=== PATIENT | male | born 1960 | race Caucasian/White ===

== ENCOUNTER 2017-02-10 19:24 | Outpatient (CLI) | payer OTHER ==
[~2017-02-10 19:24] MED LIST: ASPI-983 PO; ASPI-999 PO; ASPI1TAB PO; ATOR40TA70 PO; CLOP75TA28 PO; CLOP75TA69 PO; METO50TA2 PO; NF-ESOM40C PO; OMEG-12 PO; OMEP20CA12 PO; SCR1T PO
== END 2017-02-11 05:35 | disposition home or self-care (01) ==
LOC: SLEEP 19:24
PROVIDERS: ATTEND Family Medicine
DX: G47.33 Obstructive sleep apnea (adult) (pediatric) (principal); G47.61 Periodic limb movement disorder; I10 Essential (primary) hypertension
CPT/HCPCS: 95811

== ENCOUNTER → 2017-11-11 | Outpatient (CLI) | payer OTHER ==
[~2017-11-11] VITALS: Ht 170.2 cm; Wt 83.9 kg
[~2017-11-11] MED LIST changes: +CATHETER FLUSH 10 ML SYR IV PRN; +METO50TA15 PO; -METO50TA2 PO; +REGADENOSON 0.4 MG/5 ML SYR (LEXISCAN) IV ONE
--- NOTE | 2017-11-11 14:55 | STRESS TEST ---
DATE OF SERVICE: 11/11/2017 RESTING AND POST REGADENOSON TECHNETIUM-99M TETROFOSMIN SPECT CT IMAGING. ORDERING PHYSICIAN: Dr. Montoya. PRIMARY PHYSICIAN: Dr. Farah. CLINICAL DIAGNOSIS: Shortness of breath, coronary artery disease, hyperlipidemia, hypertension. Baseline images were carried out after injection of 10.73 mCi technetium-99m tetrofosmin. This was followed by 0.4 mg regadenoson and 30.3 mCi technetium-99m tetrofosmin for stress imaging. The electrocardiogram showed sinus rhythm at baseline. It did not change significantly with the regadenoson infusion. He tolerated the procedure well except for mild shortness of breath which resolved quickly after regadenoson infusion. Review of images at rest and following stress does not indicate any significant perfusion defects consistent with significant myocardial ischemia or infarction. Gated images show normal global left ventricular systolic function with normal regional wall motion. Left ventricular ejection fraction is calculated to be 79%. Left ventricular end diastolic volume is 45 mL. TID is absent (0.95). CONCLUSIONS: 1. No evidence of any significant myocardial ischemia or infarction on this study. 2. Normal regional wall motion. 3. Normal global left ventricular systolic function with a calculated ejection fraction of 79%. Job ID: [id number] DocumentID: [id number] Dictated Date: 11/11/2017 11:33:53 Secured Entrance Monitor Date: 11/11/2017 14:15:56 Dictated By: NICOLE MONTOYA MD, MA, FACP, FACC,
== END ==
LOC: CARD 07:18
PROVIDERS: ATTEND Internal Medicine Cardiovascular Disease
DX: E78.5 Hyperlipidemia, unspecified (principal); I10 Essential (primary) hypertension; I65.29 Occlusion and stenosis of unspecified carotid artery; Z72.0 Tobacco use; R06.02 Shortness of breath; I25.10 Atherosclerotic heart disease of native coronary artery without angina pectoris; I73.9 Peripheral vascular disease, unspecified
CPT/HCPCS: 78452; 93017

== ENCOUNTER 2018-12-30 11:10 | Outpatient (RCR) | payer OTHER ==
[~2018-12-30 11:10] MED LIST changes: -CATHETER FLUSH 10 ML SYR IV PRN; -REGADENOSON 0.4 MG/5 ML SYR (LEXISCAN) IV ONE
== END 2018-12-30 12:00 | disposition home or self-care (01) ==
PROVIDERS: ATTEND Nurse Practitioner Adult Health
DX: G46.4 Cerebellar stroke syndrome (principal)

== ENCOUNTER → 2019-12-26 | Outpatient (CLI) | payer OTHER ==
[~2019-12-26] MED LIST changes: +OMEP20CA18 PO
--- NOTE | 2019-12-26 11:09 | Diagnostic Imaging Report ---
INDICATION: Epigastric pain. EXAMINATION: KUB. FINDINGS: There is a biliary stent in place. There is some pneumobilia present. The lung bases are clear. The bowel gas pattern is normal. There are no pathologic masses or calcifications. There are iliac artery stents bilaterally. There are post surgical changes from a ventral hernia repair in the lower abdomen. IMPRESSION: There is a biliary stent in place. No acute abnormality is seen. Dictated by: Dictated on workstation # [id number]
== END ==
LOC: RAD 10:41
PROVIDERS: ATTEND Surgery
DX: R10.13 Epigastric pain (principal); R10.816 Epigastric abdominal tenderness; Z95.5 Presence of coronary angioplasty implant and graft
CPT/HCPCS: 74018

== ENCOUNTER 2020-01-10 06:09 | Outpatient (RCR) | payer OTHER ==
[~2020-01-10] VITALS: Ht 170 cm; Wt 70.0 kg
[2020-01-10] MEDS ORDERED: ALPR0.254 PO (14:23)
[2020-01-10] MEDS ORDERED: METO100T12 PO (14:23)
[2020-01-10] MEDS ORDERED: ESCI20TA45 PO (14:23)
[2020-01-10] MEDS ORDERED: TRZ50T PO (14:23)
[2020-01-10] MEDS ORDERED: LISI-552 PO (14:23)
[2020-01-10] MEDS ORDERED: OMG1KC PO (14:23)
== END 2020-01-10 15:00 | disposition home or self-care (01) ==
LOC: PREOP 06:09
PROVIDERS: ATTEND Surgery
DX: Z01.818 Encounter for other preprocedural examination (principal); K82.8 Other specified diseases of gallbladder; Z20.828 Contact with and (suspected) exposure to other viral communicable diseases
CPT/HCPCS: 87635

== ENCOUNTER 2020-01-12 07:46 | Day surgery (SDC) | payer OTHER ==
[~2020-01-12] VITALS: Ht 170 cm; Wt 70.0 kg
[2020-01-12] VITALS (9 sets, daily range): BP systolic 113–150; BP diastolic 64–87
[~2020-01-12 07:46] MED LIST changes: +ALPR0.254 PO; +ESCI20TA45 PO; +LISI-552 PO; +METO100T12 PO; +OMG1KC PO; +TRZ50T PO
[2020-01-12] MEDS ORDERED: CLINDAMYCIN 600 MG/50 ML IVPB 50 ML IV ONE (08:00)
[2020-01-12] MEDS ORDERED: CATHETER FLUSH 10 ML SYR IV PRN (08:15)
[2020-01-12] MEDS ORDERED: RT-ALBUTEROL SULF 2.5 MG/3 ML PRE-MIX VIAL INH ONE (08:15)
[2020-01-12] MEDS: LACTATED RINGERS 1,000 ML IV PRN ×3 (08:32→11:40)
[2020-01-12] MEDS ORDERED: IOPAMIDOL 61% 30 ML (ISOVUE 300) VIAL ONE (08:33)
[2020-01-12] MEDS ORDERED: BUP/EPI 0.5% 1:200,000 (SENSORCAINE) 30 ML VIAL ONE (08:33)
[2020-01-12 08:46] LABS: BASOPHILS # (AUTO) 0.1 10^3/uL (0.0-0.1); BASOPHILS % (AUTO) 1 % (0-10); EOSINOPHILS # (AUTO) 0.5 10^3/uL (0.0-0.3); EOSINOPHILS % (AUTO) 6 % (0-10); HEMATOCRIT 49 % (40-54); HEMOGLOBIN 17.2 G/DL (13.3-17.7); LYMPHOCYTES # (AUTO) 2.3 X 10^3 (1.0-4.0); LYMPHOCYTES % (AUTO) 25 % (12-44); MEAN CORPUSCULAR HEMOGLOBIN 33 PG (25-34); MEAN CORPUSCULAR HGB CONC 35 G/DL (32-36); MEAN CORPUSCULAR VOLUME 94 FL (80-99); MEAN PLATELET VOLUME 9.3 FL (7.4-10.4); MONOCYTES # (AUTO) 1.1 X 10^3 (0.0-1.0); MONOCYTES % (AUTO) 12 % (0-12); NEUTROPHILS # (AUTO) 5.4 X 10^3 (1.8-7.8); NEUTROPHILS % (AUTO) 57 % (42-75); PLATELET COUNT 325 10^3/uL (130-400); RED CELL DISTRIBUTION WIDTH 14.3 % (10.0-14.5); WHITE BLOOD COUNT 9.3 10^3/uL (4.3-11.0)
--- NOTE | 2020-01-12 09:12 | Progress Note-Pre Operative ---
Pre-Operative Progress Note H&P Reviewed The H&P was reviewed, patient examined and no changes noted. Time Seen by Provider: 09:01 Date H&P Reviewed: Jan 12, 2020 Time H&P Reviewed: 09:02 Pre-Operative Diagnosis: Gallbladder sludge, CBD stricture TASIA DE LA VEGA DO Jan 12, 2020 09:11
[2020-01-12] MEDS ORDERED: fentaNYL INJECTION 100 MCG/2 ML AMP ONE (09:30)
[2020-01-12] MEDS ORDERED: MIDAZOLAM 2 MG/2 ML (VERSED) VIAL ONE (09:30)
[2020-01-12] MEDS ORDERED: morphine INJ 10 MG/ML 1ML (SYR OR VIAL) ONE (09:48)
[2020-01-12] MEDS ORDERED: proPOfol 200 MG/20 ML (DIPRIVAN) VIAL IV ONE (09:57)
--- NOTE | 2020-01-12 10:21 | Progress Note-Post Operative ---
Post-Operative Progess Note Surgeon (s)/Professor Of Environmental Science (s) Surgeon TASIA DE LA VEGA DO Professor Of Environmental Science: Dom Pre-Operative Diagnosis Gallbladder sludge, CBD stricture Post-Operative Diagnosis same Procedure & Operative Findings Date of Procedure 01/12/20 Procedure Performed/Findings PROCEDURE: Laparoscopic cholecystectomy with intraoperative cholangiogram. COMPLICATIONS: None. PROCEDURE: The patient was taken to the operating suite and was prepped and draped in sterile fashion. A surgical pause was performed. Just superior to the umbilicus, a 12 mm incision was made. Dissection was taken down to the fascia, which was then scored and grasped with a Ester and the abdomen was then entered. A 0 Vicryl suture was placed in a prrpyn-ff-lvrfw fashion and a Barber trocar was placed and secured. Pneumoperitoneum was achieved. A 5mm trochar place in the subxyphoid and 2 in the right upper quadrant. The gallbladder was then grasped and elevated. The cystic duct, and cystic artery were then dissected out. Clip was placed on the distal portion of the cystic duct which was then partially transected. An arrow catheter was inserted into the duct. The cholangiogram was then performed. Could see the CBD stent and contrast started to go around the stent and up into Heptatic ducts and started to make its way into the duodenum. Catheter removed. Clips were placed on proximal portion of the cystic duct and then the duct was then transected. Clips were placed along the proximal and distal portion of the cystic artery which was then transected. Hook cautery was used to dissect the gallbladder from the gallbladder fossa achieving hemostasis. The gallbladder was placed in an Endobag and removed through the 12 mm trocar site. The abdomen was then reinspected. Copious amounts of irrigation were used to irrigate the abdomen and there were no signs of active bleeding. Hemostasis had been achieved. The 12 mm fascial defect was then closed with 0 Vicryl suture that had been placed in a whevjk-qc-tdljl fashion. The abdomen was then desufflated, the trocars were removed. The abdomen was then washed and dried. The skin was then closed using 4-0 Monocryl in a subcuticular fashion. The abdomen was washed and dried and Skin Affix was place over incisions. Patient tolerated the procedure well without any complications and was taken to the recovery room in stable condition. Dr. Fernandes assisted on this case; helping to make incisions, close incisions, identify anatomy and hold anatomy out of the way. A large appendiceal stump was noted and picture taken. No other obvious pathology noted with a quick scan of abdomen. Anesthesia Type GET Estimated Blood Loss Estimated blood loss (mL): scant Specimens/Packing Specimens Removed GB and contents TASIA DE LA VEGA DO Jan 12, 2020 10:21
[2020-01-12] MEDS ORDERED: HYDR-4226 PO (10:22)
--- NOTE | 2020-01-12 10:23 | Discharge Inst-Surgical ---
Discharge Inst-Surgical Depart Medication/Instructions New, Converted or Re-Newed RX: RX Given to Pt/Family Patient Instructions Follow up Appt: Make appointment for 1 week. [phone] Instructions: No lifting greater than 20 pounds. No strenuous activity. May shower in 24 hours, no tub bath or soaking. Use incentive spirometer at home as directed. No Smoking Skin/Wound Care: May remove bandages in am. You need to leave the Dermabond on incision it will fall off on it's own. Symptoms to Report: Appetite Changes, Extremity Discoloration, Numbness/Tingling, Swelling Increased, Bleeding Excessive, Eyesight Changes, Pain Increased, Urine Color Change, Constipation(Persistent), Fever over 101 degree F, Pain/Pressure in chest, Urinating Difficulty, Cough Up/Vomit Blood, Heart Beat Irreg/Pounding, Pain/Pressure in jaw, Cramps in feet or legs, Lightheadedness, Pain/Pressure in shoulder, Diarrhea(Persistent), Memory Changes Suddenly, Questions/Concerns, Weight gain consecutive days, Dizziness/Fainting, Nausea/Vomiting, Shortness of Breath, Weight gain over 2 pounds If questions or concerns contact your physician Or seek help at emergency department. Activity Activity as Tolerated: Yes Activity Instructions: Avoid Stress to Incision Driving Instructions: No Driving/Refer to Diet Discharge Diet: Avoid Fatty Foods, Low Fat/Low Cholesterol Diet for 24 Hours: No [place] Foods Diet After 24 Hours: Clear Liquid if Nauseous If Any Problems/Questions/Issu: Contact Your Physician, Go to Emergency Room Skin/Wound Care Infection Signs and Symptoms: Increased Redness, Foul Odor of Wound, Increased Drainage, Skin Itchy or Has a Rash, Increased Swelling, Temperature Above 101 F Wound Care Comment: heating pad to shoulder or neck tonight for pain Bathing Instructions: Shower Stitches/Mohan/Dermabond Dis: Dermabond Ice Pack: Ice On and Off Site (at incisions as needed for pain) TASIA DE LA VEGA DO Jan 12, 2020 10:23
[2020-01-12] MEDS ORDERED: GLYCOPYRROLATE 0.2 MG/ML (ROBINUL) 2 ML VIAL ONE (10:34)
[2020-01-12] MEDS ORDERED: NEOSTIGMINE 3 MG/3 ML VIAL ONE (10:34)
[2020-01-12] MEDS ORDERED: ONDANSETRON 4 MG/2 ML (SDV) Z0FRAN ONE (10:34)
[2020-01-12] MEDS ORDERED: DEXAMETHASONE 10 MG/ML (DECADRON) 1 ML VIAL ONE (10:34)
[2020-01-12] MEDS ORDERED: SEVOFLURANE (ULTANE) 15 ML INHAL SOLN ONE ×3 (10:36)
[2020-01-12] MEDS ORDERED: ONDANSETRON 4 MG/2 ML (SDV) Z0FRAN IVP PRN (10:45)
[2020-01-12] MEDS ORDERED: morphine INJ 10 MG/ML 1ML (SYR OR VIAL) IVP ONE (10:45)
--- NOTE | 2020-01-12 11:18 | Diagnostic Imaging Report ---
INDICATION: Fluoroscopy for intraoperative cholangiogram. Fluoroscopy was provided in the OR during intraoperative cholangiogram. 21 seconds of fluoroscopic time was utilized. Images demonstrate a common duct stent. There is injection of contrast into the common duct as well as intrahepatic ducts. No definite contrast is seen flowing into the duodenum. IMPRESSION: Fluoroscopy for intraoperative cholangiogram. Dictated by: Dictated on workstation # [id number]
--- NOTE | 2020-01-12 11:55 | Anesthesia-General Post-Op ---
General Patient Condition Mental Status/LOC: Same as Preop Cardiovascular: Satisfactory Nausea/Vomiting: Absent Respiratory: Satisfactory Pain: Controlled Complications: Absent Post Op Complications Complications None Follow Up Care/Instructions Patient Instructions None needed. Anesthesia/Patient Condition Patient Condition Patient is doing well, no complaints, stable vital signs, no apparent adverse anesthesia problems. No complications reported per nursing. SHANNON BABCOCK CRNA Jan 12, 2020 11:55
--- NOTE | 2020-01-12 12:05 | NUR ---
Dr. Raines called at this time, per order ok to give pt. a pain pill. (1) Hydrocodone 5/325 PO x ONCE.
[2020-01-12] MEDS ORDERED: HYDROcodone/APAP 5 MG/325 MG (LORTAB) TAB ONE (12:07)
[2020-01-12] MEDS ORDERED: HYDROcodone/APAP 5 MG/325 MG (LORTAB) TAB PO ONE (12:15)
== END 2020-01-12 13:10 | disposition home or self-care (01) ==
LOC: SDC 07:46
PROVIDERS: ATTEND Surgery
DX: K81.1 Chronic cholecystitis (principal); E78.00 Pure hypercholesterolemia, unspecified; E78.5 Hyperlipidemia, unspecified; I10 Essential (primary) hypertension; F17.210 Nicotine dependence, cigarettes, uncomplicated; F41.9 Anxiety disorder, unspecified; F32.9 Major depressive disorder, single episode, unspecified; J44.9 Chronic obstructive pulmonary disease, unspecified; G47.33 Obstructive sleep apnea (adult) (pediatric); K21.9 Gastro-esophageal reflux disease without esophagitis; Z86.73 Personal history of transient ischemic attack (TIA), and cerebral infarction without residual deficits; Z79.82 Long term (current) use of aspirin; Z79.899 Other long term (current) drug therapy; Z88.0 Allergy status to penicillin
CPT/HCPCS: 36415; 76000; 85025; 87081; 94640

== ENCOUNTER 2020-01-14 17:28 | Observation (INO) | payer OTHER ==
[~2020-01-14] VITALS: Ht 170.1 cm; Wt 71.9 kg
[~2020-01-14 17:28] MED LIST changes: +HYDR-4226 PO
[2020-01-14] MEDS ORDERED: fentaNYL INJECTION 100 MCG/2 ML AMP IVP STA (17:41)
[2020-01-14] MEDS ORDERED: NS IV 1000 ML 1,000 ML IV STA (17:41)
--- NOTE | 2020-01-14 17:44 | ED Abdominal Pain ---
General Chief Complaint: General Problems/Pain Nursing Triage Note: Had gallbladder removed two days ago at [facility] by Dr Eng. States he has not been able to move around much at home due to the pain. Is having generalized abdominal pain, shoulder pain, and headaches. Pain is currently rated at 8/10. Last dose of hydrocodone was two hours ago. Sepsis Screen: No Definite Risk Source of Information: Patient, EMS History of Present Illness Date Seen by Provider: Jan 14, 2020 Time Seen by Provider: 17:31 Initial Comments 59 -year-old male with diffuse abdominal pain radiating to his shoulders. He had laparoscopic cholecystectomy with Dr. De La Vega and was discharged on January 11. He states that he's had pain ever since going home but it was worse today. He has been taking hydrocodone for pain with the last dose 2 hours prior to arrival. He reports that he is passing gas but has had hard stool. He has subjective fever. He reports increased pain with movement Allergies and Home Medications Allergies Coded Allergies: Penicillins (Unverified Allergy, Intermediate, hives, 01/09/20) Home Medications Alprazolam 0.25 Mg Tablet, 0.25 MG PO PRN, (Reported) Escitalopram Oxalate 20 Mg Tablet, 20 MG PO DAILY, (Reported) Hydrocodone/Acetaminophen 1 Each Tablet, 1 TAB PO Q6H Prescribed by: TASIA DE LA VEGA on 01/12/20 1022 Lisinopril 20 Mg Tablet, 10 MG PO DAILY, (Reported) Metoprolol Tartrate 100 Mg Tablet, 50 MG PO BID, (Reported) [place] 3 Polyunsat Fatty Acids 1,000 Mg Cap, 1,000 MG PO BID, (Reported) Omeprazole 20 Mg Capsule.dr, 20 MG PO DAILY, (Reported) Trazodone HCl 50 Mg Tablet, 100 MG PO HS, (Reported) Patient Home Medication List Home Medication List Reviewed: Yes Review of Systems Review of Systems Constitutional: chills, fever (subjective) EENTM: No Symptoms Reported Respiratory: No Symptoms Reported Cardiovascular: No Symptoms Reported Gastrointestinal: See HPI, Abdominal Pain (diffuse abdominal pain radiating to right shoulder), Constipated, Nausea; Denies Vomiting Genitourinary: No Symptoms Reported Musculoskeletal: joint pain (abdominal pain seems to radiate to the right shoulder) Skin: no symptoms reported Psychiatric/Neurological: Headache Past Pmboaln-Ydhvnz-Fzqsiq Hx Past Med/Social Hx: Reviewed Nursing Past Med/Soc Hx Patient Social History Alcohol Use: Occasionally Uses Number of Drinks Today: AA Alcohol Beverage of Choice: Beer Recreational Drug Use: No Smoking Status: Current Everyday Smoker Type Used: Cigarettes 2nd Hand Smoke Exposure: Yes Recent Foreign Travel: No Contact w/Someone Who Travel: No Recent Infectious Disease Expo: No Recent Hopitalizations: Yes (NOVEMBER-2019 ) Physical Abuse: No Sexual Abuse: No Mistreated: No Fear: No Immunizations Up To Date PED Vaccines UTD: No Seasonal Allergies Seasonal Allergies: Yes Past Medical History Surgeries: Yes (HERNIA REPAIR, STENT IN LEGS) Appendectomy, Gallbladder Respiratory: Yes Sleep Apnea, COPD Currently Using CPAP: No (DOESN'T USE CPAP) Cardiac: Yes High Cholesterol, Hypertension Neurological: Yes Stroke Sexually Transmitted Disease: No HIV/AIDS: No Genitourinary: No Gastrointestinal: Yes Gastroesophageal Reflux Musculoskeletal: Yes Chronic Back Pain Endocrine: No HEENT: Yes (READING GLASSES, TOP DENTURE) Loss of Vision: Denies Hearing Impairment: Denies Cancer: No Psychosocial: Yes Anxiety, Depression Integumentary: No Blood Disorders: No Adverse Reaction/Blood Tranf: No (N/A) Physical Exam Vital Signs Vital Signs - First Documented 01/14/20 17:30 Temp 36.8 Pulse 74 Resp 16 B/P (MAP) 102/56 (71) Pulse Ox 93 Capillary Refill : Less Than 3 Seconds Height/Weight/BMI Height: 5'7.00" Weight: 185lbs. 0.0oz. 83.809309kp; 24.22 BMI Method:Stated General Appearance: WD/WN, mild distress HEENT: PERRL/EOMI, pharynx normal Neck: non-tender, full range of motion, supple, normal inspection Respiratory: chest non-tender, lungs clear, normal breath sounds Cardiovascular: normal peripheral pulses, regular rate, rhythm Gastrointestinal: soft, no pulsatile mass, abnormal bowel sounds (hypoactive), guarding; No rebound; tenderness (diffuse tenderness), other (healing incisions from laparoscopic surgery) Extremities: normal range of motion, non-tender, no pedal edema, normal capillary refill Neurologic/Psychiatric: alert, oriented x 3 Skin: warm/dry, ecchymosis (some bruising around his incisions from lapa roscopic surgery) Focused Exam Lactate Level 01/14/20 18:19: Lactic Acid Level 0.95 Lactic Acid Level Laboratory Tests Test 01/14/20 18:19 Lactic Acid Level 0.95 MMOL/L (0.50-2.00) Progress/Results/Core Measures Results/Orders Lab Results Laboratory Tests Test 01/14/20 18:19 01/14/20 18:42 Range/Units White Blood Count 15.1 H 4.3-11.0 10^3/uL Red Blood Count 4.65 4.35-5.85 10^6/uL Hemoglobin 15.5 13.3-17.7 G/DL Hematocrit 45 40-54 % Mean Corpuscular Volume 96 80-99 FL Mean Corpuscular Hemoglobin 33 25-34 PG Mean Corpuscular Hemoglobin Concent 35 32-36 G/DL Red Cell Distribution Width 13.4 10.0-14.5 % Platelet Count 334 130-400 10^3/uL Mean Platelet Volume 9.1 7.4-10.4 FL Neutrophils (%) (Auto) 76 H 42-75 % Lymphocytes (%) (Auto) 12 12-44 % Monocytes (%) (Auto) 11 0-12 % Eosinophils (%) (Auto) 1 0-10 % Basophils (%) (Auto) 0 0-10 % Neutrophils # (Auto) 11.4 H 1.8-7.8 X 10^3 Lymphocytes # (Auto) 1.7 1.0-4.0 X 10^3 Monocytes # (Auto) 1.7 H 0.0-1.0 X 10^3 Eosinophils # (Auto) 0.2 0.0-0.3 10^3/uL Basophils # (Auto) 0.1 0.0-0.1 10^3/uL Neutrophils % (Manual) 71 % Lymphocytes % (Manual) 9 % Monocytes % (Manual) 11 % Eosinophils % (Manual) 0 % Basophils % (Manual) 0 % Band Neutrophils 4 % Atypical Lymphocytes 5 % Blood Morphology Comment NORMAL Sodium Level 132 L 135-145 MMOL/L Potassium Level 4.4 3.6-5.0 MMOL/L Chloride Level 95 L 98-107 MMOL/L Carbon Dioxide Level 24 21-32 MMOL/L Anion Gap 13 5-14 MMOL/L Blood Urea Nitrogen 10 7-18 MG/DL Creatinine 0.93 0.60-1.30 MG/DL Estimat Glomerular Filtration Rate > 60 BUN/Creatinine Ratio 11 Glucose Level 108 H 70-105 MG/DL Lactic Acid Level 0.95 0.50-2.00 MMOL/L Calcium Level 9.2 8.5-10.1 MG/DL Corrected Calcium 9.8 8.5-10.1 MG/DL Total Bilirubin 0.7 0.1-1.0 MG/DL Aspartate Amino Transf (AST/SGOT) 16 5-34 U/L Alanine Aminotransferase (ALT/SGPT) 14 0-55 U/L Alkaline Phosphatase 43 40-136 U/L Total Protein 6.4 6.4-8.2 GM/DL Albumin 3.3 3.2-4.5 GM/DL Lipase 28 8-78 U/L Urine Color YELLOW Urine Clarity CLEAR Urine pH 7.0 5-9 Urine Specific [place] 1.010 L 1.016-1.022 Urine Protein NEGATIVE NEGATIVE Urine Glucose (UA) NEGATIVE NEGATIVE Urine Ketones NEGATIVE NEGATIVE Urine Nitrite NEGATIVE NEGATIVE Urine Bilirubin NEGATIVE NEGATIVE Urine Urobilinogen 0.2 < = 1.0 MG/DL Urine Leukocyte Esterase NEGATIVE NEGATIVE Urine RBC (Auto) NEGATIVE NEGATIVE Urine RBC 0-2 /HPF Urine WBC NONE /HPF Urine Squamous Epithelial Cells 2-5 /HPF Urine Crystals PRESENT H /LPF Urine Bacteria NEGATIVE /HPF Urine Casts NONE /LPF Urine Mucus NEGATIVE /LPF Urine Other SODIUM URATE CRYSTAL /HPF Urine Culture Indicated NO My Orders Orders - ELIZA ADAMS MD Comprehensive Metabolic Panel (01/14/20 17:41) Lipase (01/14/20 17:41) Ua Culture If Indicated (01/14/20 17:41) Ed Iv/Invasive Line Start (01/14/20 17:41) Cbc With Automated Diff (01/14/20 17:41) Ct Abdomen/Pelvis W (01/14/20 17:41) Lactic Acid Analyzer (01/14/20 17:41) Ns Iv 1000 Ml (Sodium Chloride 0.9%) (01/14/20 17:41) Fentanyl Injection (Sublimaze Injection (01/14/20 17:41) Iohexol Injection (Omnipaque 350 Mg/Ml 1 (01/14/20 18:00) Received Contrast (Hold Metformin- Contr (01/14/20 18:00) Sodium Chloride Flush (Catheter Flush Sy (01/14/20 18:00) Ns (Ivpb) (Sodium Chloride 0.9% Ivpb Bag (01/14/20 18:00) Manual Differential (01/14/20 18:19) Medications Given in ED Current Medications Medications Dose Ordered Sig/Boyd Route Start Time Stop Time Status Last Admin Dose Admin Iohexol 100 ml ONCE ONCE IV 01/14/20 18:00 01/14/20 18:01 DC 01/14/20 19:14 100 ML Sodium Chloride 10 ml NEEDED PRN IV 01/14/20 18:00 01/14/20 19:14 10 ML Sodium Chloride 100 ml ONCE ONCE IV 01/14/20 18:00 01/14/20 18:01 DC 01/14/20 19:14 100 ML Vital Signs/I&O 01/14/20 17:30 Temp 36.8 Pulse 74 Resp 16 B/P (MAP) 102/56 (71) Pulse Ox 93 Blood Pressure Mean: 71 Progress Progress Note #1: Progress Note Obtain labs including a lactic acid. Give IV fluids for hydration. A low-dose of fentanyl for pain and plan on CT scan of the abdomen and pelvis with IV contrast if his creatinine is okay. Progress Note #2: Time: 19:01 Progress Note Labs show elevated WBC count with left shift. chemistry without acute significant abnormality. Normal LFTs and Lactic acid. UA does not show acute significant abnormality Awaiting CT scan. Progress Note #3: Time: 19:48 Progress Note Radiologist, Dr. Almaguer, called and stated pt has mild to moderate pneumoperitoneum and constipation. Will check with Dr. De La Vega and have him review the images and see if it is more than he expects or what he would like me to do with the patient. Progress Note #4: Time: 20:06 Progress Note d/w Dr. De La Vega and with pt still having pain and mild to moderate pneumoperitoneum will admit overnight and continue IVF with pain medicine and recheck in am Diagnostic Imaging Diagonstic Imaging: CT Plain Films/CT/US/NM/MRI: abdomen, pelvis Comments NAME: HIRAL JAY MED REC#: [id number] PT STATUS: REG ER : 1960 PHYSICIAN: ELIZA ADAMS MD ADMIT DATE: 01/14/20/ER FS Draft Date of Exam:01/14/20 CT ABDOMEN/PELVIS W PROCEDURE: CT abdomen and pelvis with contrast. TECHNIQUE: Multiple contiguous axial images were obtained through the abdomen and pelvis after administration of intravenous contrast. Auto Exposure Controls were utilized during the CT exam to meet ALARA standards for radiation dose reduction. INDICATION: Generalized abdominal pain. Leukocytosis. COMPARISON: CT dated 11/16/2019 FINDINGS: Included portions of the lung bases show right basilar atelectasis. CT ABDOMEN: Since the previous exam, there has been interval development of mild to moderate pneumoperitoneum in the upper abdomen. Small amount of pneumoperitoneum is also scattered throughout the omentum. Small bowel loops are nondistended. Large amount of air and stool is noted scattered throughout the colon. Normal appendix is identified. Indwelling common bile duct stent is noted. There is pneumobilia. Otherwise, the liver, kidneys, adrenal glands, spleen, and pancreas have a normal CT appearance. There is no loculated fluid collection or free fluid. No abnormal mesenteric or retroperitoneal adenopathy is seen. There is advanced calcified aortic and arterial atherosclerosis. 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 Osseous structures show no acute abnormalities. CT PELVIS: Urinary bladder is unopacified and minimally distended. There is no loculated fluid collection, free fluid or free air within the pelvis. No abnormal lymph nodes are seen. Osseous structures show no acute abnormalities. IMPRESSION: 1. Interval development of mild to moderate pneumoperitoneum. Per history, patient is status post cholecystectomy. No loculated fluid collection is seen to suggest abscess. 2. Indwelling common bile duct stent with pneumobilia. 3. Moderate colonic air and stool. Please correlate for constipation. 4. Other nonemergent findings as described above. Results called to Dr. Eliza Adams by Dr. Almaguer at 1940 on 01/14/2020. Dictated on workstation # [id number] Dict: 01/14/201934 Trans: 01/14/201944 ELLIOTT [id number] Interpreted by: DIOR ALMAGUER MD Electronically signed by: Departure Communication (Admissions) Time/Spoke to Admitting Phy: 20:06 d/w Dr. De La Vega and will observe pt for IVF and pain control and recheck in AM. Impression Primary Impression: Diffuse abdominal pain Additional Impressions: Pneumoperitoneum Pleural effusion, right Disposition: ADMITTED INPATIENT Condition: Stable Admissions Decision to Admit Reason: Admit from ER (General) Decision to Admit/Date: Jan 14, 2020 Time/Decision to Admit Time: 20:06 Departure-Patient Inst. Referrals: NO,LOCAL PHYSICIAN (PCP) Primary Care Physician [facility] (Family) Primary Care Physician ELIZA ADAMS MD Jan 14, 2020 17:44
[2020-01-14] MEDS ORDERED: CATHETER FLUSH 10 ML SYR IV PRN (18:00)
[2020-01-14] MEDS ORDERED: IOHEXOL 350 MG/ML 100 ML (OMNIPAQUE 350) VIAL IV ONE (18:00)
[2020-01-14] MEDS ORDERED: NS 100 ML (IVPB) BAG IV ONE (18:00)
[2020-01-14] MEDS ORDERED: HOLD METFORMIN - RECEIVED CONTRAST 20 ML VIAL IV SCH (18:00)
[2020-01-14 18:28] LABS: BASOPHILS % (AUTO) 0 % (0-10); EOSINOPHILS % (AUTO) 1 % (0-10); HEMATOCRIT 45 % (40-54); HEMOGLOBIN 15.5 G/DL (13.3-17.7); LYMPHOCYTES % (AUTO) 12 % (12-44); MEAN CORPUSCULAR HEMOGLOBIN 33 PG (25-34); MEAN CORPUSCULAR HGB CONC 35 G/DL (32-36); MEAN CORPUSCULAR VOLUME 96 FL (80-99); MEAN PLATELET VOLUME 9.1 FL (7.4-10.4); MONOCYTES % (AUTO) 11 % (0-12); PLATELET COUNT 334 10^3/uL (130-400); RED CELL DISTRIBUTION WIDTH 13.4 % (10.0-14.5); WHITE BLOOD COUNT 15.1 10^3/uL (4.3-11.0)
[2020-01-14 18:29] LABS: BASOPHILS # (AUTO) 0.1 10^3/uL (0.0-0.1); EOSINOPHILS # (AUTO) 0.2 10^3/uL (0.0-0.3); LYMPHOCYTES # (AUTO) 1.7 X 10^3 (1.0-4.0); MONOCYTES # (AUTO) 1.7 X 10^3 (0.0-1.0); NEUTROPHILS # (AUTO) 11.4 X 10^3 (1.8-7.8); NEUTROPHILS % (AUTO) 76 % (42-75)
[2020-01-14 18:41] LABS: ATYPICAL LYMPHOCYTES 5 %; BAND NEUTROPHILS 4 %; BASOPHILS % (MANUAL) 0 %; EOSINOPHILS % (MANUAL) 0 %; LYMPHOCYTES % (MANUAL) 9 %; MONOCYTES % (MANUAL) 11 %; NEUTROPHILS % (MANUAL) 71 %
[2020-01-14 18:42] LABS: RBC MORPH NORMAL
[2020-01-14 18:49] LABS: SODIUM 132 MMOL/L (135-145)
[2020-01-14 18:50] LABS: ALANINE AMINOTRANSFERASE 14 U/L (0-55); ALBUMIN 3.3 GM/DL (3.2-4.5); ALKALINE PHOSPHATASE 43 U/L (40-136); BILIRUBIN,TOTAL 0.7 MG/DL (0.1-1.0); BUN/CREATININE RATIO 11; CALCIUM 9.2 MG/DL (8.5-10.1); CARBON DIOXIDE 24 MMOL/L (21-32); CHLORIDE 95 MMOL/L (98-107); CREATININE SERUM 0.93 MG/DL (0.60-1.30); GFR ESTIMATED > 60; GLUCOSE 108 MG/DL (70-105); POTASSIUM 4.4 MMOL/L (3.6-5.0); TOTAL PROTEIN 6.4 GM/DL (6.4-8.2)
[2020-01-14 18:51] LABS: LIPASE 28 U/L (8-78)
[2020-01-14 18:56] LABS: BILIRUBIN,URINE NEGATIVE (NEGATIVE); CLARITY,URINE CLEAR; COLOR,URINE YELLOW; GLUCOSE, URINE (UA) NEGATIVE (NEGATIVE); KETONES,URINE NEGATIVE (NEGATIVE); NITRITE,URINE NEGATIVE (NEGATIVE); PROTEIN,URINE NEGATIVE (NEGATIVE)
[2020-01-14 18:57] LABS: LEUKOCYTE ESTERASE ,URINE NEGATIVE (NEGATIVE)
[2020-01-14 19:00] LABS: BACTERIA,URINE NEGATIVE /HPF; RBC,URINE 0-2 /HPF; URINE OTHER SODIUM URATE CRYSTAL /HPF
--- NOTE | 2020-01-14 19:46 | Diagnostic Imaging Report ---
PROCEDURE: CT abdomen and pelvis with contrast. TECHNIQUE: Multiple contiguous axial images were obtained through the abdomen and pelvis after administration of intravenous contrast. Auto Exposure Controls were utilized during the CT exam to meet ALARA standards for radiation dose reduction. INDICATION: Generalized abdominal pain. Leukocytosis. COMPARISON: CT dated 11/16/2019 FINDINGS: Included portions of the lung bases show right basilar atelectasis. CT ABDOMEN: Since the previous exam, there has been interval development of mild to moderate pneumoperitoneum in the upper abdomen. Small amount of pneumoperitoneum is also scattered throughout the omentum. Small bowel loops are nondistended. Large amount of air and stool is noted scattered throughout the colon. Normal appendix is identified. Indwelling common bile duct stent is noted. There is pneumobilia. Otherwise, the liver, kidneys, adrenal glands, spleen, and pancreas have a normal CT appearance. There is no loculated fluid collection or free fluid. No abnormal mesenteric or retroperitoneal adenopathy is seen. There is advanced calcified aortic and arterial atherosclerosis. 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 Osseous structures show no acute abnormalities. CT PELVIS: Urinary bladder is unopacified and minimally distended. There is no loculated fluid collection, free fluid or free air within the pelvis. No abnormal lymph nodes are seen. Osseous structures show no acute abnormalities. IMPRESSION: 1. Interval development of mild to moderate pneumoperitoneum. Per history, patient is status post cholecystectomy. No loculated fluid collection is seen to suggest abscess. 2. Indwelling common bile duct stent with pneumobilia. 3. Moderate colonic air and stool. Please correlate for constipation. 4. Other nonemergent findings as described above. Results called to Dr. Shayne Aguirre by Dr. Kuo at 1940 on 01/14/2020. Dictated by: Dictated on workstation # [id number]
--- NOTE | 2020-01-14 22:10 | NUR ---
HIRAL JAY admitted to room 404-1, with an admitting diagnosis of ABD PAIN, on 01/14/20 from [facility], accompanied by EMS STAFF. HIRAL JAY introduced to surroundings, call light, bed controls, phone, TV, temperature control, lights, meal times, smoking policy, visitor policy, side rail policy, bathrooms and showers. Patient Rights given to patient in the handbook. HIRAL JAY verbalizes understanding that [facility] is not responsible for the loss or damage to any personal effects or valuables that are kept in the patients posession during their hospitalization. HIRAL JAY verbalizes understanding of Interdisciplinary Patient Education. Patient and/or family were informed about the Rapid Response Team and its purpose.
[2020-01-14 22:28] VITALS: BP 146/68
[2020-01-14] MEDS ORDERED: ONDANSETRON 4 MG/2 ML (SDV) Z0FRAN ONE (23:00)
[2020-01-14] MEDS ORDERED: LACTATED RINGERS 1,000 ML IV ONE (23:00)
[2020-01-14] MEDS ORDERED: HYDROcodone/APAP 5 MG/325 MG (LORTAB) TAB ONE (23:01)
[2020-01-14] MEDS ORDERED: morphine INJ 4 MG/ML 1 ML (VIAL/SYRINGE) ONE (23:01)
[2020-01-14] MEDS ORDERED: HYDROcodone/APAP 5 MG/325 MG (LORTAB) TAB PO PRN (23:45)
[2020-01-14] MEDS ORDERED: ONDANSETRON 4 MG/2 ML (SDV) Z0FRAN IV PRN (23:45)
[2020-01-14] MEDS ORDERED: morphine INJ 4 MG/ML 1 ML (VIAL/SYRINGE) IV PRN (23:45)
[2020-01-14] MEDS ORDERED: LACTATED RINGERS 1,000 ML IV SCH (23:45)
[2020-01-14] MEDS ORDERED: polyethylene glycoL POWDER 17 GM (MIRALAX) PACK PO SCH (23:58)
[2020-01-15 00:23] VITALS: BP 128/60
[2020-01-15 04:00] VITALS: BP 139/70
[2020-01-15 05:30] LABS: BASOPHILS % (AUTO) 0 % (0-10); EOSINOPHILS # (AUTO) 0.4 10^3/uL (0.0-0.3); EOSINOPHILS % (AUTO) 3 % (0-10); HEMATOCRIT 46 % (40-54); HEMOGLOBIN 15.2 G/DL (13.3-17.7); LYMPHOCYTES # (AUTO) 1.8 X 10^3 (1.0-4.0); LYMPHOCYTES % (AUTO) 16 % (12-44); MEAN CORPUSCULAR HEMOGLOBIN 32 PG (25-34); MEAN CORPUSCULAR HGB CONC 33 G/DL (32-36); MEAN CORPUSCULAR VOLUME 98 FL (80-99); MEAN PLATELET VOLUME 9.2 FL (7.4-10.4); MONOCYTES # (AUTO) 1.6 X 10^3 (0.0-1.0); MONOCYTES % (AUTO) 14 % (0-12); NEUTROPHILS # (AUTO) 7.8 X 10^3 (1.8-7.8); NEUTROPHILS % (AUTO) 67 % (42-75); PLATELET COUNT 303 10^3/uL (130-400); RED CELL DISTRIBUTION WIDTH 13.7 % (10.0-14.5); WHITE BLOOD COUNT 11.5 10^3/uL (4.3-11.0)
[2020-01-15 05:51] LABS: ALANINE AMINOTRANSFERASE 13 U/L (0-55); ALBUMIN 3.3 GM/DL (3.2-4.5); ALKALINE PHOSPHATASE 41 U/L (40-136); BILIRUBIN,TOTAL 0.9 MG/DL (0.1-1.0); BUN/CREATININE RATIO 8; CALCIUM 9.7 MG/DL (8.5-10.1); CARBON DIOXIDE 28 MMOL/L (21-32); CHLORIDE 99 MMOL/L (98-107); GFR ESTIMATED > 60; GLUCOSE 81 MG/DL (70-105); POTASSIUM 4.7 MMOL/L (3.6-5.0); SODIUM 136 MMOL/L (135-145); TOTAL PROTEIN 6.3 GM/DL (6.4-8.2)
[2020-01-15 08:30] VITALS: BP 136/64
[2020-01-15] MEDS ORDERED: CLIN150C17 PO (13:06)
--- NOTE | 2020-01-15 13:08 | NUR ---
SPOKE WITH THE PT- HE WANTED HE TO CALL HIS FIANCE LISSY SINCE SHE TAKES CARE OF HIS MEDS. I CALLED LISSY THEN CALLED THE [facility] TO COMPLETE THE MED REC THE FOLLOWING ARE FILL DATES FROM THE [place]: 12-14-2019 ESCITALOPRAM 20MG #90/90DS 12-14-2019 LISINOPRIL 20MG #45/90DS 12-14-2019 METOPROLOL TART 100MG #90/90DS 12-14-2019 TRAZODONE 50MG #180 12-11-2019 XANAX 0.25MG #56/28DS OMEPRAZOLE 20MG #90/90DS OTC MEDS: FISH OIL
--- NOTE | 2020-01-15 13:14 | History & Physical-Surgical ---
History of Present Illness History of Present Illness Reason for visit/HPI Surgery asked to admit pt secondary to abdominal pain. HPI per ED: Had gallbladder removed two days ago at [facility] by Dr De La Vega. States he has not been able to move around much at home due to the pain. Is having generalized abdominal pain, shoulder pain, and headaches. Pain is currently rated at 8/10. Last dose of hydrocodone was two hours ago. 59 -year-old male with diffuse abdominal pain radiating to his shoulders. He had laparoscopic cholecystectomy with Dr. De La Vega and was discharged on January 11. He states that he's had pain ever since going home but it was worse today. He has been taking hydrocodone for pain with the last dose 2 hours prior to arrival. He reports that he is passing gas but has had hard stool. He has s ubjective fever. He reports increased pain with movement. Pt seen today and stated he feels much better, was able to pass some gas and had a small BM. He is actually asking if he can go home. States pain was 10 out of 10 yesterday. Date of Admission Jan 14, 2020 at 20:32 Time Seen by a Provider: 11:34 I consulted on this patient on 01/15/20 13:07 Attending Physician David De La Vega DO Admitting Physician No,Local Physician Consult Allergies and Home Medications Allergies Coded Allergies: Penicillins (Unverified Allergy, Intermediate, hives, 01/09/20) Home Medications Alprazolam 0.25 Mg Tablet, 0.25 MG PO BID PRN for ANXIETY, (Reported) Clindamycin HCl 150 Mg Capsule, 150 MG PO TID, (Reported) FILLED 01-04-2020 #30/10 DAY SUPPLY Escitalopram Oxalate 20 Mg Tablet, 20 MG PO DAILY, (Reported) Hydrocodone/Acetaminophen 1 Each Tablet, 1 TAB PO Q6H Prescribed by: DAVID DE LA VEGA on 01/12/20 1022 Lisinopril 20 Mg Tablet, 10 MG PO DAILY, (Reported) TAKES OF A 20MG Metoprolol Tartrate 100 Mg Tablet, 50 MG PO BID, (Reported) TAKES OF A 100MG TAB TWICE DAILY [place] 3 Polyunsat Fatty Acids 1,000 Mg Cap, 1,000 MG PO BID, (Reported) Omeprazole 20 Mg Capsule.dr, 20 MG PO DAILY, (Reported) Trazodone HCl 50 Mg Tablet, 50-150 MG PO HS PRN for SLEEP, (Reported) TAKES 1 TO 3 (50MG) TABS Patient Home Medication List Home Medication List Reviewed: Yes Past Slxfemc-Anbcyg-Yjhgau Hx Patient Social History Alcohol Use: Occasionally Uses Number of Drinks Today: AA Recreational Drug Use: No Smoking Status: Current Everyday Smoker Type Used: Cigarettes 2nd Hand Smoke Exposure: Yes Recent Foreign Travel: No Contact w/Someone Who Travel: No Recent Infectious Disease Expo: No Recent Hopitalizations: Yes (NOVEMBER-2019 ) Immunizations Up To Date PED Vaccines UTD: No Seasonal Allergies Seasonal Allergies: Yes Surgeries History of Surgeries: Yes (HERNIA REPAIR, STENT IN LEGS) Surgeries: Appendectomy, Gallbladder Respiratory History of Respiratory Disorde: Yes Respiratory Disorders: Sleep Apnea, COPD Cardiovascular History of Cardiac Disorders: Yes Cardiac Disorders: High Cholesterol, Hypertension Neurological History of Neurological Disord: Yes Neurological Disorders: Stroke Reproductive System Sexually Transmitted Disease: No HIV/AIDS: No Genitourinary History of Genitourinary Disor: No Gastrointestinal History of Gastrointestinal Di: Yes Gastrointestinal Disorders: Gastroesophageal Reflux Musculoskeletal History of Musculoskeletal Dis: Yes Musculoskeletal Disorders: Chronic Back Pain Endocrine History of Endocrine Disorders: No HEENT History of HEENT Disorders: Yes (READING GLASSES, TOP DENTURE) Loss of Vision: Denies Hearing Impairment: Denies Cancer History of Cancer: No Psychosocial History of Psychiatric Problem: Yes Behavioral Health Disorders: Anxiety, Depression Integumentary History of Skin or Integumenta: No Blood Transfusions History of Blood Disorders: No Adverse Reaction to a Blood Tr: No (N/A) Family Medical History Significant Family History: Cancer (Colon CA -gmother), Stroke (father) Review of Systems Constitutional: malaise, weakness EENTM: No blurred vision, No double vision, No mouth pain, No mouth swelling, No epistaxis Respiratory: dyspnea on exertion (secondary to pain with deep breaths); No phlegm, No short of breath Cardiovascular: chest pain; No palpitations Gastrointestinal: abdominal pain; No hematemesis; nausea; No vomiting Genitourinary: No dysuria, No frequency, No hematuria Musculoskeletal: joint pain, muscle stiffness Skin: No change in color, No change in hair/nails Psychiatric/Neurological: Denies Anxiety, Denies Depressed, Denies Seizure, Denies Tremors Physical Exam Vital Signs Vital Signs - First Documented 01/14/20 01/14/20 17:30 21:15 Temp 36.8 Pulse 74 Resp 16 B/P (MAP) 102/56 (71) Pulse Ox 93 O2 Delivery Room Air Capillary Refill : Less Than 3 Seconds Height, Weight, BMI Height: 5'7.00" Weight: 185lbs. 0.0oz. 83.767802fl; 24.84 BMI Method:Stated General Appearance: No Apparent Distress, WD/WN Eyes: Bilateral Eye PERRL, Bilateral Eye EOMI HEENT: Moist Mucous Membranes; No Scleral Icterus (L), No Scleral Icterus (R) Neck: Non Tender, Supple Respiratory: Lungs Clear, Normal Breath Sounds, No Accessory Muscle Use, No Respiratory Distress Cardiovascular: Regular Rate, Rhythm, No Murmur Gastrointestinal: Soft, Distended (slight), Tenderness Rectal: Deferred Back: No CVA Tenderness, No Vertebral Tenderness Extremity: No Calf Tenderness, No Pedal Edema Neurologic/Psychiatric: Alert, Oriented x3, Normal Mood/Affect, net software architect II-XII Norm as Tested Skin: Normal Color, Warm/Dry Lymphatic: No Adenopathy (neck, axilla or groin) Data Review Labs Laboratory Tests 01/14/20 18:19: White Blood Count 15.1H, Red Blood Count 4.65, Hemoglobin 15.5, Hematocrit 45, Mean Corpuscular Volume 96, Mean Corpuscular Hemoglobin 33, Mean Corpuscular Hemoglobin Concent 35, Red Cell Distribution Width 13.4, Platelet Count 334, Mean Platelet Volume 9.1, Neutrophils (%) (Auto) 76H, Lymphocytes (%) (Auto) 12, Monocytes (%) (Auto) 11, Eosinophils (%) (Auto) 1, Basophils (%) (Auto) 0, Neutrophils # (Auto) 11.4H, Lymphocytes # (Auto) 1.7, Monocytes # (Auto) 1.7H, Eosinophils # (Auto) 0.2, Basophils # (Auto) 0.1, Neutrophils % (Manual) 71, Lymphocytes % (Manual) 9, Monocytes % (Manual) 11, Eosinophils % (Manual) 0, Basophils % (Manual) 0, Band Neutrophils 4, Atypical Lymphocytes 5, Blood Morphology Comment NORMAL, Sodium Level 132L, Potassium Level 4.4, Chloride Level 95L, Carbon Dioxide Level 24, Anion Gap 13, Blood Urea Nitrogen 10, Creatinine 0.93, Estimat Glomerular Filtration Rate > 60, BUN/Creatinine Ratio 11, Glucose Level 108H, Lactic Acid Level 0.95, Calcium Level 9.2, Corrected Calcium 9.8, Total Bilirubin 0.7, Aspartate Amino Transf (AST/SGOT) 16, Alanine Aminotransferase (ALT/SGPT) 14, Alkaline Phosphatase 43, Total Protein 6.4, Albumin 3.3, Lipase 28 01/14/20 18:42: Urine Color YELLOW, Urine Clarity CLEAR, Urine pH 7.0, Urine Specific [place] 1.010L, Urine Protein NEGATIVE, Urine Glucose (UA) NEGATIVE, Urine Ketones NEGATIVE, Urine Nitrite NEGATIVE, Urine Bilirubin NEGATIVE, Urine Urobilinogen 0.2, Urine Leukocyte Esterase NEGATIVE, Urine RBC (Auto) NEGATIVE, Urine RBC 0-2, Urine WBC NONE, Urine Squamous Epithelial Cells 2-5, Urine Crystals PRESENTH, Urine Bacteria NEGATIVE, Urine Casts NONE, Urine Mucus NEGATIVE, Urine Other SODIUM URATE CRYSTAL, Urine Culture Indicated NO 01/15/20 05:05: White Blood Count 11.5H, Red Blood Count 4.70, Hemoglobin 15.2, Hematocrit 46, Mean Corpuscular Volume 98, Mean Corpuscular Hemoglobin 32, Mean Corpuscular Hemoglobin Concent 33, Red Cell Distribution Width 13.7, Platelet Count 303, Mean Platelet Volume 9.2, Neutrophils (%) (Auto) 67, Lymphocytes (%) (Auto) 16, Monocytes (%) (Auto) 14H, Eosinophils (%) (Auto) 3, Basophils (%) (Auto) 0, Neutrophils # (Auto) 7.8, Lymphocytes # (Auto) 1.8, Monocytes # (Auto) 1.6H, Eosinophils # (Auto) 0.4H, Basophils # (Auto) 0.0, Sodium Level 136, Potassium Level 4.7, Chloride Level 99, Carbon Dioxide Level 28, Anion Gap 9, Blood Urea Nitrogen 8, Creatinine 1.00, Estimat Glomerular Filtration Rate > 60, BUN/ Creatinine Ratio 8, Glucose Level 81, Calcium Level 9.7, Corrected Calcium 10.3H , Total Bilirubin 0.9, Aspartate Amino Transf (AST/SGOT) 17, Alanine Aminotransferase (ALT/SGPT) 13, Alkaline Phosphatase 41, Total Protein 6.3L, Albumin 3.[address] ABDOMEN/PELVIS W PROCEDURE: CT abdomen and pelvis with contrast. TECHNIQUE: Multiple contiguous axial images were obtained through the abdomen and pelvis after administration of intravenous contrast. Auto Exposure Controls were utilized during the CT exam to meet ALARA standards for radiation dose reduction. INDICATION: Generalized abdominal pain. Leukocytosis. COMPARISON: CT dated 11/16/2019 FINDINGS: Included portions of the lung bases show right basilar atelectasis. CT ABDOMEN: Since the previous exam, there has been interval development of mild to moderate pneumoperitoneum in the upper abdomen. Small amount of pneumoperitoneum is also scattered throughout the omentum. Small bowel loops are nondistended. Large amount of air and stool is noted scattered throughout the colon. Normal appendix is identified. Indwelling common bile duct stent is noted. There is pneumobilia. Otherwise, the liver, kidneys, adrenal glands, spleen, and pancreas have a normal CT appearance. There is no loculated fluid collection or free fluid. No abnormal mesenteric or retroperitoneal adenopathy is seen. There is advanced calcified aortic and arterial atherosclerosis. 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 Osseous structures show no acute abnormalities. CT PELVIS: Urinary bladder is unopacified and minimally distended. There is no loculated fluid collection, free fluid or free air within the pelvis. No abnormal lymph nodes are seen. Osseous structures show no acute abnormalities. IMPRESSION: 1. Interval development of mild to moderate pneumoperitoneum. Per history, patient is status post cholecystectomy. No loculated fluid collection is seen to suggest abscess. 2. Indwelling common bile duct stent with pneumobilia. 3. Moderate colonic air and stool. Please correlate for constipation. 4. Other nonemergent findings as described above. Results called to Dr. Shayne Aguirre by Dr. Almaguer at 1940 on 01/14/2020. Dictated on workstation # [id number] Dict: 01/14/201934 Trans: 01/14/201944 [facility] [id number] Interpreted by: DIOR ALMAGUER MD Assessment/Plan Assessment/Plan Admission Diagonsis Pneumoperitoneum Abdominal pain Constipation Admission Status: Observation Assessment/Plan Pneumoperitoneum Abdominal pain Constipation Pt had elevated WBC but that is improved and his pain is better after flatus and BM. I think the pneumoperitoneum was just due to recent surgery. Pt told to take some Mg Citrate at home and f/u in office. Will D/C pt home. Clinical Quality Measures DVT/VTE Risk/Contraindication: Risk Factor Score Per Nursin RFS Level Per Nursing on Admit: 3=High DAVID DE LA VEGA DO Jan 15, 2020 13:14
--- NOTE | 2020-01-15 13:18 | NUR ---
RD ASSESSMENT PMHx: COPD; hypercholesterolemia; HTN; stroke; GERD PT INTERACTION: Pt was awake and pleasant during nutrition assessment. Pt states current appetite is "not that great" and has been since his surgery 01/11. Note no meals have been recorded, per chart review. Pt states "trying to follow a healthy diet with my " at home and has no issues with chewing/swallowing food. Pt states no recent issues with nausea, vomiting or diarrhea. Pt states some recent issues with constipation, and that his last BM was "maybe Wednesday (01/11)." Note pt currently on bowel regimen of miralax HS, per chart review. Pt states unsure of recent wt changes. Note unable to determine recent wt hx, per chart review. ABNORMAL NUTRITION-RELATED LAB VALUES LOW: Pro 6.3 HIGH: Est. kcal needs: 2635-0613 kcal | 25-30 kcal/kg Est. Pro needs: 58-72 g Pro | 0.8-1.0 g Pro/kg PES STATEMENT: Inadequate oral intake (NI-2.1) related to loss of appetite | constipation as evidenced by pt interview INTERVENTION: Continue with current diet order of Clear Liquid diet. Pt may benefit from nutrition supplementation if PO intake declines. Encouraged pt to eat when able. Will continue to follow and reassess as pt needs, intake, and status change. MONITOR/EVALUATE: PO Intake; Plan of Care; Hydration Status; Weight Status; Lab Values Azeem River, MS, RD, LD
--- NOTE | 2020-01-15 13:54 | Discharge Inst-Surgical ---
Discharge Inst-Surgical Depart Medication/Instructions New, Converted or Re-Newed RX: Other (Use home meds) Patient Instructions Follow up Appt: Make appointment for this week. [phone] Instructions: No lifting greater than 20 pounds. No strenuous activity. May shower in 24 hours, no tub bath or soaking. Use incentive spirometer at home as directed. No Smoking Symptoms to Report: Appetite Changes, Extremity Discoloration, Numbness/Tingling, Swelling Increased, Bleeding Excessive, Eyesight Changes, Pain Increased, Urine Color Change, Constipation(Persistent), Fever over 101 degree F, Pain/Pressure in chest, Urinating Difficulty, Cough Up/Vomit Blood, Heart Beat Irreg/Pounding, Pain/Pressure in jaw, Cramps in feet or legs, Lightheadedness, Pain/Pressure in shoulder, Diarrhea(Persistent), Memory Changes Suddenly, Questions/Concerns, Weight gain consecutive days, Dizziness/Fainting, Nausea/Vomiting, Shortness of Breath, Weight gain over 2 pounds If questions or concerns contact your physician Or seek help at emergency department. Activity Activity as Tolerated: Yes Activity Instructions: Avoid Stress to Incision Driving Instructions: No Driving/Refer to Diet Discharge Diet: Avoid Fatty Foods, Low Fat/Low Cholesterol Diet for 24 Hours: No [place] [employer] Diet After 24 Hours: Clear Liquid if Nauseous Comment: Use Mg Citrate for BM's If Any Problems/Questions/Issu: Contact Your Physician, Go to Emergency Room Skin/Wound Care Infection Signs and Symptoms: Increased Redness, Foul Odor of Wound, Increased Drainage, Skin Itchy or Has a Rash, Increased Swelling, Temperature Above 101 F Stitches/[place]/Dermabond Dis: TASIA Mac DO Jan 15, 2020 13:54
== END 2020-01-15 13:52 | disposition home or self-care (01) ==
LOC: EDUNIT# 17:28 → ER FS 17:29 → UNDOADMOB 20:32 → 4TH 20:32 → UNDODISOB 01-15 14:40
PROVIDERS: ADMIT Surgery; ATTEND Surgery
DX: J90 Pleural effusion, not elsewhere classified (principal); E78.00 Pure hypercholesterolemia, unspecified; I10 Essential (primary) hypertension; K21.9 Gastro-esophageal reflux disease without esophagitis; G89.29 Other chronic pain; G47.30 Sleep apnea, unspecified; M54.9 Dorsalgia, unspecified; F32.9 Major depressive disorder, single episode, unspecified; F41.9 Anxiety disorder, unspecified; K59.00 Constipation, unspecified; J44.9 Chronic obstructive pulmonary disease, unspecified; F17.210 Nicotine dependence, cigarettes, uncomplicated; Z90.49 Acquired absence of other specified parts of digestive tract; Z88.0 Allergy status to penicillin; Z86.73 Personal history of transient ischemic attack (TIA), and cerebral infarction without residual deficits; Z79.891 Long term (current) use of opiate analgesic; Z79.899 Other long term (current) drug therapy; Z90.89 Acquired absence of other organs; Z80.0 Family history of malignant neoplasm of digestive organs
CPT/HCPCS: 36415; 74177; 80053 ×2; 81000; 83605; 83690; 85007; 85025; 85027; 96361; 96374; 99283; G0378

== ENCOUNTER 2020-02-08 05:39 | Outpatient (RCR) | payer OTHER ==
[~2020-02-08] VITALS: Ht 170.2 cm; Wt 75.9 kg
[~2020-02-08 05:39] MED LIST changes: +CLIN150C17 PO
== END 2020-02-08 10:41 | disposition home or self-care (01) ==
LOC: PREOP 05:39
PROVIDERS: ATTEND Surgery
DX: Z01.818 Encounter for other preprocedural examination (principal)

== ENCOUNTER 2020-02-11 16:49 | Emergency (ER) | payer OTHER ==
[~2020-02-11] VITALS: Ht 170 cm; Wt 75.9 kg
--- OUTSIDE RECORDS SUMMARY | 2020-02-11 17:36 | XMS REPORT | Continuity of Care Document ---
Author Organization Unknown Address Unknown Phone Unavailable Allergies Active Description Code Type Severity Reaction Onset Reported/Identified Relationship to Patient Clinical Status Yes PENICILLIN G POTASSIUM UNKNOWN UNKNOWN Yes Penicillins [id number] Drug Aller gy Moderate hives 01/09/2020 Medications Medication Packaging Start Date St op Date Route Dosage Sig FAMOTIDINE VIAL INJ 20 MG/2CC (PEPCID VIAL ) MG 11/13/2019 11/13/2019 ONCE&1318 PANTOPRAZOLE VIAL INJ 40 MG (PROTONIX IV) MG 11/13/2019 11/13/2019 ONCE&1318 GI COCKTAIL SINGLE DOSE LIQ (GRASSHOPPER) ML 11/13/2019 11/13/2019 ONCE&1318 THIAMINE VIAL 2CC INJ 100 MG /CC (VIT B1 2CC VIAL) MG 11/13/2019 11/13/2019 ONCE&1404 NORMAL SALINE 1000CC IV BAG INJ 0.9 % (NS 1000CC IV BAG) ml 11/13/2019 11/13/2019 ONCE&1551 NICOTINE PATCH PAT 21 MG (NICODERM) MG 11/13/2019 11/13/2019 ONCE&1553 FENTANYL INJ 100 MCG/2CC VIAL MCG 11/13/2019 11/13/2019 ONCE&1614 Problems Date Dx Coded Attending Type Code Diagnosis Diagnosed By 07/01/1040 TASIA DE LA VEGA DO Ot Z01.8 18 ENCOUNTER FOR OTHER PREPROCEDURAL EXAMIN 07/01/1199 VAHE GRANT Ot G46.4 CEREBELLAR STROKE SYNDROME 11/14/2013 GERMÁN GODWIN, OPAL Jackson Ot 305.00 ALCOHOL ABUSE-UNSPEC 11/14/2013 OPAL DUNLAP MD Ot 440.20 ATHEROSCLEROSIS [place] ARTERIES EXTREMIT 11/14/2013 GERMÁN GODWIN, OPAL Jackson Ot 535.50 UNSP GASTRITIS GASTRODUODENITIS W/O ME 11/14/2013 OPAL DUNLAP MD Ot 789.09 ABDOMINAL PAIN, OTHER SPECIFIED SITE 08/20/2015 FENG GODWIN FACC, ALI FACP CCDS Ot E78.4 08/20/2015 FENG GODWIN FACC, ALI FACP CCDS Ot I10 08/20/2015 FENG GODWIN FACC, ALI FACP CCDS Ot I70.212 08/20/2015 FENG GODWIN FACC, ALI FACP CCDS Ot R06.02 08/20/2015 FENG GODWIN FACC, ALI FACP CCDS Ot R07.89 08/20/2015 FENG GODWIN FACC, ALI FACP CCDS Ot Z72.0 09/04/2015 FENG GODWIN FACC, ALI FACP CCDS Ot E78.5 HYPERLIPIDEMIA, UNSPECIFIED 09/04/2015 FENG GODWIN FACC, ALI FACP CCDS Ot F17.200 NICOTINE DEPENDENCE, UNSPECIFIED, UNCOMP 09/04/2015 FENG GODWIN FACC, ALI FACP CCDS Ot I25.10 ATHSCL HEART DISEASE OF [place] CORONARY 09/04/2015 FENG GODWIN FACC, ALI FACP CCDS Ot I25.82 CHRONIC TOTAL OCCLUSION OF CORONARY UMM 09/04/2015 FENG GODWIN FACC, ALI FACP CCDS Ot I70.213 ATHSCL [place]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 INTRMT 09/04/2015 FENG GODWIN FACC, ALI FACP CCDS Ot R06.00 DYSPNEA, UNSPECIFIED 09/04/2015 FENG GODWIN FACC, ALI FACP CCDS Ot R07.89 OTHER CHEST PAIN 09/04/2015 FENG GODWIN FACC, ALI FACP CCDS Ot Z79.8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 09/10/2015 FENG GODWIN FACC, NICOLE FACP CCDS Ot E78.5 HYPERLIPIDEMIA, UNSPECIFIED 09/10/2015 FENG GODWIN FACC, ALI FACP CCDS Ot F17.200 NICOTINE DEPENDENCE, UNSPECIFIED, UNCOMP 09/10/2015 FENG GODWIN FACC, ALI FACP CCDS Ot I70.213 ATHSCL [place]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 INTRMT 09/10/2015 FENG GODWIN FACC, ALI FACP CCDS Ot R06.00 DYSPNEA, UNSPECIFIED 09/10/2015 FENG GODWIN FACC, ALI FACP CCDS Ot Z79.8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 09/25/2015 FENG GODWIN FACC, ALI FACP CCDS Ot E78.4 09/25/2015 FENG GODWIN FACC, ALI FACP CCDS Ot I10 09/25/2015 FENG GODWIN FACC, ALI FACP CCDS Ot I70.212 09/25/2015 FENG STEWART, ALI FACP CCDS Ot R06.02 09/25/2015 FENG GODWIN FAC, ALI FACP CCDS Ot R07.89 09/25/2015 FENG GODWIN FACC, ALI FACP CCDS Ot Z72.0 09/25/2015 FENG GODWIN FAC, ALI FACP CCDS Ot E78.4 09/25/2015 FENG GODWIN FAC, ALI FACP CCDS Ot I10 09/25/2015 FENG GODWIN FAC, ALI FACP CCDS Ot I70.212 09/25/2015 FENG GODWIN [facility], ALI FACP CCDS Ot R06.02 09/25/2015 FENG GODWIN [facility], ALI FACP CCDS Ot R07.89 09/25/2015 FENG GODWIN [facility], ALI FACP CCDS Ot Z72.0 02/09/2017 FENG STEWART, ALI FACP CCDS Ot E78.4 OTHER HYPERLIPIDEMIA 02/09/2017 FENG GODWIN [facility], ALI FACP CCDS Ot I10 ESSENTIAL (PRIMARY) HYPERTENSION 02/09/2017 FENG GODWIN [facility], ALI FACP CCDS Ot 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 02/09/2017 FENG STEWART, ALI FACP CCDS Ot R06.02 SHORTNESS OF BREATH 02/09/2017 FENG STEWART, ALI FACP CCDS Ot R07.89 OTHER CHEST PAIN 02/09/2017 FENG STEWART, ALI FACP CCDS Ot Z72.0 TOBACCO USE 02/09/2017 FENG STEWART, ALI FACP CCDS Ot E78.4 OTHER HYPERLIPIDEMIA 02/09/2017 FENG STEWART, ALI FACP CCDS Ot I10 ESSENTIAL (PRIMARY) HYPERTENSION 02/09/2017 FENG STEWART, ALI FACP CCDS Ot 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 02/09/2017 FENG STEWARTC, ALI FACP CCDS Ot R06.02 SHORTNESS OF BREATH 02/09/2017 FENG STEWARTC, ALI FACP CCDS Ot R07.89 OTHER CHEST PAIN 02/09/2017 FENG STEWARTC, ALI FACP CCDS Ot Z72.0 TOBACCO USE 02/10/2017 FENG GODWIN FACC, ALI FACP CCDS Ot E78.4 OTHER HYPERLIPIDEMIA 02/10/2017 FENG GODWIN FACC, ALI FACP CCDS Ot I10 ESSENTIAL (PRIMARY) HYPERTENSION 02/10/2017 FENG GODWIN FACC, ALI FACP CCDS Ot 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 02/10/2017 FENG GODWIN FACC, ALI FACP CCDS Ot R06.02 SHORTNESS OF BREATH 02/10/2017 FENG GODWIN FACC, ALI FACP CCDS Ot R07.89 OTHER CHEST PAIN 02/10/2017 FENG GODWIN FACC, ALI FACP CCDS Ot Z72.0 TOBACCO USE 02/10/2017 FENG GODWIN FACC, ALI FACP CCDS Ot E78.4 OTHER HYPERLIPIDEMIA 02/10/2017 FENG GODWIN FACC, ALI FACP CCDS Ot I10 ESSENTIAL (PRIMARY) HYPERTENSION 02/10/2017 FENG GODWIN FACShobha, ALI FACP CCDS Ot 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 02/10/2017 FENG GODWIN FACC, ALI FACP CCDS Ot R06.02 SHORTNESS OF BREATH 02/10/2017 FENG GODWIN FACC, ALI FACP CCDS Ot R07.89 OTHER CHEST PAIN 02/10/2017 FENG GODWIN FACC, ALI FACP CCDS Ot Z72.0 TOBACCO USE 02/11/2017 BRISEIDA BRODERICK MD Ot G47.3 3 OBSTRUCTIVE SLEEP APNEA (ADULT) (PEDIATR 02/11/2017 BRISEIDA BRODERICK MD Ot G47.6 1 PERIODIC LIMB MOVEMENT DISORDER 02/11/2017 BRISEIDA BRODERICK MD Ot I10 ESSENTIAL (PRIMARY) HYPERTENSION 10/27/2017 W 728.85 SPA SM OF MUSCLE 10/27/2017 W M62.838 OT HER MUSCLE SPASM 11/02/2017 Briseida Broderick W 173.32 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 11/02/2017 Briseida Broderick W C44.329 SQUAMOUS CELL CARCINOMA OF SKIN OF OTHER PARTS OF FACE 11/02/2017 W 173.32 SQU AMOUS CELL CARCINOMA OF SKIN OF OTHER AND UNSPECIFIED PARTS OF FACE 11/02/2017 W 272.4 OTHE R AND UNSPECIFIED HYPERLIPIDEMIA 11/02/2017 W C44.329 SQ UAMOUS CELL CARCINOMA OF SKIN OF OTHER PARTS OF FACE 11/02/2017 W E78.5 HYPE RLIPIDEMIA, UNSPECIFIED 11/02/2017 Silvia BroderickDenzel W 173.32 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 11/02/2017 Gagan Briseida W C44.329 SQUAMOUS CELL CARCINOMA OF SKIN OF OTHER PARTS OF FACE 11/10/2017 FENG GODWIN FACC, ALI FACP CCDS Ot E78.4 OTHER HYPERLIPIDEMIA 11/10/2017 FENG GODWIN FACC, ALI FACP CCDS Ot I10 ESSENTIAL (PRIMARY) HYPERTENSION 11/10/2017 FENG GODWIN FACC, ALI FACP CCDS Ot I70.212 ATHSCL [place]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 [facility] 11/10/2017 FENG GODWIN FACC, ALI FACP CCDS Ot R06.02 SHORTNESS OF BREATH 11/10/2017 FENG STEWARTC, ALI FACP CCDS Ot R07.89 OTHER CHEST PAIN 11/10/2017 FENG STEWARTC, ALI FACP CCDS Ot Z72.0 TOBACCO USE 11/10/2017 FENG GODWIN FACC, ALI FACP CCDS Ot E78.4 OTHER HYPERLIPIDEMIA 11/10/2017 FENG GODWIN FACC, ALI FACP CCDS Ot I10 ESSENTIAL (PRIMARY) HYPERTENSION 11/10/2017 FENG GODWIN FACC, ALI FACP CCDS Ot 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 11/10/2017 FENG STEWARTC, ALI FACP CCDS Ot R06.02 SHORTNESS OF BREATH 11/10/2017 FENG STEWARTC, ALI FACP CCDS Ot R07.89 OTHER CHEST PAIN 11/10/2017 FENG STEWARTC, ALI FACP CCDS Ot Z72.0 TOBACCO USE 11/10/2017 FENG STEWARTC, ALI FACP CCDS Ot E78.4 OTHER HYPERLIPIDEMIA 11/10/2017 FENG GODWIN FACC, ALI FACP CCDS Ot I10 ESSENTIAL (PRIMARY) HYPERTENSION 11/10/2017 FENG GODWIN FACC, ALI FACP CCDS Ot 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 11/10/2017 FENG GODWIN FACC, ALI FACP CCDS Ot R06.02 SHORTNESS OF BREATH 11/10/2017 FENG GODWIN FACC, ALI FACP CCDS Ot R07.89 OTHER CHEST PAIN 11/10/2017 FENG GODWIN FACC, ALI FACP CCDS Ot Z72.0 TOBACCO USE 11/10/2017 FENG GODWIN FACC, ALI FACP CCDS Ot E78.4 OTHER HYPERLIPIDEMIA 11/10/2017 FENG GODWIN FACC, ALI FACP CCDS Ot I10 ESSENTIAL (PRIMARY) HYPERTENSION 11/10/2017 FENG GODWIN FACC, ALI FACP CCDS Ot 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 11/10/2017 FENG GODWIN FACC, ALI FACP CCDS Ot R06.02 SHORTNESS OF BREATH 11/10/2017 FENG GODWIN FACC, ALI FACP CCDS Ot R07.89 OTHER CHEST PAIN 11/10/2017 FENG GODWIN FACC, ALI FACP CCDS Ot Z72.0 TOBACCO USE 11/10/2017 FENG GODWIN FACC, ALI FACP CCDS Ot E78.4 OTHER HYPERLIPIDEMIA 11/10/2017 FENG GODWIN FACC, ALI FACP CCDS Ot I10 ESSENTIAL (PRIMARY) HYPERTENSION 11/10/2017 FENG GODWIN FACC, ALI FACP CCDS Ot 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 11/10/2017 FENG STEWARTC, ALI FACP CCDS Ot R06.02 SHORTNESS OF BREATH 11/10/2017 FENG STEWARTC, ALI FACP CCDS Ot R07.89 OTHER CHEST PAIN 11/10/2017 FENG STEWARTC, ALI FACP CCDS Ot Z72.0 TOBACCO USE 11/10/2017 FENG STEWARTC, ALI FACP CCDS Ot E78.4 OTHER HYPERLIPIDEMIA 11/10/2017 FENG GODWIN FACC, ALI FACP CCDS Ot I10 ESSENTIAL (PRIMARY) HYPERTENSION 11/10/2017 FENG GODWIN FACC, ALI FACP CCDS Ot 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 11/10/2017 FENG GODWIN FACC, ALI FACP CCDS Ot R06.02 SHORTNESS OF BREATH 11/10/2017 FENG GODWIN FACC, ALI FACP CCDS Ot R07.89 OTHER CHEST PAIN 11/10/2017 FENG GODWIN FACC, ALI FACP CCDS Ot Z72.0 TOBACCO USE 11/11/2017 FENG GODWIN FACC, ALI FACP CCDS Ot E78.4 OTHER HYPERLIPIDEMIA 11/11/2017 FENG GODWIN FACC, ALI FACP CCDS Ot I10 ESSENTIAL (PRIMARY) HYPERTENSION 11/11/2017 FENG GODWIN FACC, ALI FACP CCDS Ot 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 11/11/2017 FENG GODWIN FACC, ALI FACP CCDS Ot R06.02 SHORTNESS OF BREATH 11/11/2017 FENG GODWIN FACC, ALI FACP CCDS Ot R07.89 OTHER CHEST PAIN 11/11/2017 FENG GODWIN FACC, ALI FACP CCDS Ot Z72.0 TOBACCO USE 11/11/2017 FENG GODWIN FACC, ALI FACP CCDS Ot E78.4 OTHER HYPERLIPIDEMIA 11/11/2017 FENG GODWIN FACC, ALI FACP CCDS Ot I10 ESSENTIAL (PRIMARY) HYPERTENSION 11/11/2017 FENG GODWIN FACC, ALI FACP CCDS Ot 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 11/11/2017 FENG GODWIN FACC, ALI FACP CCDS Ot R06.02 SHORTNESS OF BREATH 11/11/2017 FENG STEWARTC, ALI FACP CCDS Ot R07.89 OTHER CHEST PAIN 11/11/2017 FENG STEWARTC, ALI FACP CCDS Ot Z72.0 TOBACCO USE 11/11/2017 FENG STEWARTC, ALI FACP CCDS Ot E78.4 OTHER HYPERLIPIDEMIA 11/11/2017 FENG GODWIN FACC, ALI FACP CCDS Ot I10 ESSENTIAL (PRIMARY) HYPERTENSION 11/11/2017 FENG GODWIN FACC, ALI FACP CCDS Ot 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 11/11/2017 FENG GODWIN FACC, ALI FACP CCDS Ot R06.02 SHORTNESS OF BREATH 11/11/2017 FENG GODWIN FACC, ALI FACP CCDS Ot R07.89 OTHER CHEST PAIN 11/11/2017 FENG GODWIN FACC, ALI FACP CCDS Ot Z72.0 TOBACCO USE 11/11/2017 FENG GODWIN FACC, ALI FACP CCDS Ot E78.4 OTHER HYPERLIPIDEMIA 11/11/2017 FENG GODWIN FACC, ALI FACP CCDS Ot I10 ESSENTIAL (PRIMARY) HYPERTENSION 11/11/2017 FENG GODWIN FACC, ALI FACP CCDS Ot 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 11/11/2017 FENG GODWIN FACC, ALI FACP CCDS Ot R06.02 SHORTNESS OF BREATH 11/11/2017 FENG GODWIN FACC, ALI FACP CCDS Ot R07.89 OTHER CHEST PAIN 11/11/2017 FENG GODWIN FACC, ALI FACP CCDS Ot Z72.0 TOBACCO USE 11/12/2017 FENG GODWIN FACC, ALI FACP CCDS Ot E78.5 HYPERLIPIDEMIA, UNSPECIFIED 11/12/2017 FENG GODWIN FACC, ALI FACP CCDS Ot I10 ESSENTIAL (PRIMARY) HYPERTENSION 11/12/2017 FENG GDOWIN FACC, ALI FACP CCDS Ot I25.10 ATHSCL HEART DISEASE OF [place] CORONARY 11/12/2017 FENG GODWIN FACC, ALI FACP CCDS Ot I65.29 OCCLUSION AND STENOSIS OF UNSPECIFIED CA 11/12/2017 FENG GODWIN FACC, ALI FACP CCDS Ot I73.9 PERIPHERAL VASCULAR DISEASE, UNSPECIFIED 11/12/2017 FENG GODWIN FACC, ALI FACP CCDS Ot R06.02 SHORTNESS OF BREATH 11/12/2017 FENG STEWARTC, ALI FACP CCDS Ot Z72.0 TOBACCO USE 11/17/2017 FENG STEWARTC, ALI FACP CCDS Ot E78.5 HYPERLIPIDEMIA, UNSPECIFIED 11/17/2017 FENG GODWIN FACC, ALI FACP CCDS Ot I10 ESSENTIAL (PRIMARY) HYPERTENSION 11/17/2017 FENG GODWIN FACC, ALI FACP CCDS Ot I25.10 ATHSCL HEART DISEASE OF [place] CORONARY 11/17/2017 FENG GODWIN FACC, ALI FACP CCDS Ot I65.29 OCCLUSION AND STENOSIS OF UNSPECIFIED CA 11/17/2017 FENG GODWIN FACC, ALI FACP CCDS Ot I73.9 PERIPHERAL VASCULAR DISEASE, UNSPECIFIED 11/17/2017 FENG GODWIN FACC, ALI FACP CCDS Ot R06.02 SHORTNESS OF BREATH 11/17/2017 FENG GODWIN FACC, ALI FACP CCDS Ot Z72.0 TOBACCO USE 11/18/2017 W V58.32 ENC OUNTER FOR REMOVAL OF SUTURES 11/18/2017 W Z48.02 ENC OUNTER FOR REMOVAL OF SUTURES 11/22/2017 FENG GODWIN FACC, ALI FACP CCDS Ot E78.4 OTHER HYPERLIPIDEMIA 11/22/2017 FENG STEWARTC, ALI FACP CCDS Ot I10 ESSENTIAL (PRIMARY) HYPERTENSION 11/22/2017 FENG STEWARTC, ALI FACP CCDS Ot 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 11/22/2017 FENG STEWARTC, ALI FACP CCDS Ot R06.02 SHORTNESS OF BREATH 11/22/2017 FENG STEWARTC, ALI FACP CCDS Ot R07.89 OTHER CHEST PAIN 11/22/2017 FENG GODWIN FACC, ALI FACP CCDS Ot Z72.0 TOBACCO USE 11/22/2017 FNEG GODWIN FACC, ALI FACP CCDS Ot E78.4 OTHER HYPERLIPIDEMIA 11/22/2017 FENG GODWIN FACC, ALI FACP CCDS Ot I10 ESSENTIAL (PRIMARY) HYPERTENSION 11/22/2017 FENG GODWIN FACC, ALI FACP CCDS Ot 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 11/22/2017 FENG GODWIN FACC, ALI FACP CCDS Ot R06.02 SHORTNESS OF BREATH 11/22/2017 FENG GODWIN FACC, ALI FACP CCDS Ot R07.89 OTHER CHEST PAIN 11/22/2017 FENG GODWIN FACC, ALI FACP CCDS Ot Z72.0 TOBACCO USE 11/22/2017 FENG GODWIN FACC, ALI FACP CCDS Ot E78.5 HYPERLIPIDEMIA, UNSPECIFIED 11/22/2017 FENG GODWIN FACC, ALI FACP CCDS Ot I10 ESSENTIAL (PRIMARY) HYPERTENSION 11/22/2017 FENG GODWIN FACC, ALI FACP CCDS Ot I25.10 ATHSCL HEART DISEASE OF [place] CORONARY 11/22/2017 FENG GODWIN FACC, ALI FACP CCDS Ot I65.29 OCCLUSION AND STENOSIS OF UNSPECIFIED CA 11/22/2017 FENG GODWIN FACC, ALI FACP CCDS Ot I73.9 PERIPHERAL VASCULAR DISEASE, UNSPECIFIED 11/22/2017 FENG GODWIN FACC, ALI FACP CCDS Ot R06.02 SHORTNESS OF BREATH 11/22/2017 FENG MD FACC, ALI FACP CCDS Ot Z72.0 TOBACCO USE 11/24/2017 FENG GODWIN FACC, ALI FACP CCDS Ot E78.5 HYPERLIPIDEMIA, UNSPECIFIED 11/24/2017 FENG GODWIN FACC, ALI FACP CCDS Ot I10 ESSENTIAL (PRIMARY) HYPERTENSION 11/24/2017 FENG GODWIN FACC, ALI FACP CCDS Ot I25.10 ATHSCL HEART DISEASE OF [place] CORONARY 11/24/2017 FENG GODWIN FACC, ALI FACP CCDS Ot I73.9 PERIPHERAL VASCULAR DISEASE, UNSPECIFIED 11/24/2017 FENG GODWIN FACC, ALI FACP CCDS Ot R06.02 SHORTNESS OF BREATH 11/24/2017 FENG GODWIN FACC, ALI FACP CCDS Ot Z72.0 TOBACCO USE 12/09/2017 FENG GODWIN [facility], ALI FACP CCDS Ot E78.5 HYPERLIPIDEMIA, UNSPECIFIED 12/09/2017 FENG GODWIN FACC, ALI FACP CCDS Ot I10 ESSENTIAL (PRIMARY) HYPERTENSION 12/09/2017 FENG GODWIN [facility], ALI FACP CCDS Ot I25.10 ATHSCL HEART DISEASE OF [place] CORONARY 12/09/2017 FENG GODWIN [facility], ALI FACP CCDS Ot I65.29 OCCLUSION AND STENOSIS OF UNSPECIFIED CA 12/09/2017 FENG GODWIN [facility], ALI FACP CCDS Ot I73.9 PERIPHERAL VASCULAR DISEASE, UNSPECIFIED 12/09/2017 FENG GODWIN [facility], ALI FACP CCDS Ot R06.02 SHORTNESS OF BREATH 12/09/2017 FENG GODWIN [facility], ALI FACP CCDS Ot Z72.0 TOBACCO USE 12/14/2017 FENG GODWIN [facility], ALI FACP CCDS Ot E78.5 HYPERLIPIDEMIA, UNSPECIFIED 12/14/2017 FENG GODWIN [facility], ALI FACP CCDS Ot I10 ESSENTIAL (PRIMARY) HYPERTENSION 12/14/2017 FENG GODWIN [facility], ALI FACP CCDS Ot I25.10 ATHSCL HEART DISEASE OF [place] CORONARY 12/14/2017 FENG GODWIN [facility], ALI FACP CCDS Ot I73.9 PERIPHERAL VASCULAR DISEASE, UNSPECIFIED 12/14/2017 FENG GODWIN FACC, ALI FACP CCDS Ot R06.02 SHORTNESS OF BREATH 12/14/2017 FENG GODWIN [facility], ALI FACP CCDS Ot Z72.0 TOBACCO USE 02/17/2018 W 112.0 CAND IDIASIS OF MOUTH 02/17/2018 W 401.9 UNSP ECIFIED ESSENTIAL HYPERTENSION 02/17/2018 W 430 SUBARA CHNOID HEMORRHAGE 02/17/2018 W 431 INTRAC EREBRAL HEMORRHAGE 02/17/2018 W B37.0 CAND IDAL STOMATITIS 02/17/2018 W I10 ESSENT IAL (PRIMARY) HYPERTENSION 02/17/2018 W I60.9 NONT RAUMATIC SUBARACHNOID HEMORRHAGE, UNSPECIFIED 02/17/2018 W I61.9 NONT RAUMATIC INTRACEREBRAL HEMORRHAGE, UNSPECIFIED 03/15/2018 W 309.0 ADJU STMENT DISORDER WITH DEPRESSED MOOD 03/15/2018 W 431 INTRAC EREBRAL HEMORRHAGE 03/15/2018 W F43.21 ADJ USTMENT DISORDER WITH DEPRESSED MOOD 03/15/2018 W I61.9 NONT RAUMATIC INTRACEREBRAL HEMORRHAGE, UNSPECIFIED 04/07/2018 W 272.4 OTHE R AND UNSPECIFIED HYPERLIPIDEMIA 04/07/2018 W 401.9 UNSP ECIFIED ESSENTIAL HYPERTENSION 04/07/2018 W 691.8 OTHE R ATOPIC DERMATITIS AND RELATED CONDITIONS 04/07/2018 W E78.5 HYPE RLIPIDEMIA, UNSPECIFIED 04/07/2018 W I10 ESSENT IAL (PRIMARY) HYPERTENSION 04/07/2018 W L20.9 ATOP IC DERMATITIS, UNSPECIFIED 10/24/2018 FENG GODWIN FACC, ALI FACP CCDS Ot E78.4 OTHER HYPERLIPIDEMIA 10/24/2018 FENG GODWIN FACC, ALI FACP CCDS Ot I10 ESSENTIAL (PRIMARY) HYPERTENSION 10/24/2018 FENG GODWIN FACC, ALI FACP CCDS Ot 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 10/24/2018 FENG GODWIN FACC, ALI FACP CCDS Ot R06.02 SHORTNESS OF BREATH 10/24/2018 FENG GODWIN FACC, ALI FACP CCDS Ot R07.89 OTHER CHEST PAIN 10/24/2018 FENG GODWIN FACC, ALI FACP CCDS Ot Z72.0 TOBACCO USE 10/24/2018 FENG GODWIN FACC, ALI FACP CCDS Ot E78.4 OTHER HYPERLIPIDEMIA 10/24/2018 FENG GODWIN FACC, ALI FACP CCDS Ot I10 ESSENTIAL (PRIMARY) HYPERTENSION 10/24/2018 FENG GODWIN FACC, ALI FACP CCDS Ot 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 10/24/2018 FENG MD FACC, ALI FACP CCDS Ot R06.02 SHORTNESS OF BREATH 10/24/2018 FENG MD FACC, ALI FACP CCDS Ot R07.89 OTHER CHEST PAIN 10/24/2018 FENG MD FAC, ALI FACP CCDS Ot Z72.0 TOBACCO USE 10/24/2018 FENG MD FACC, ALI FACP CCDS Ot E78.5 HYPERLIPIDEMIA, UNSPECIFIED 10/24/2018 FENG MD FACC, ALI FACP CCDS Ot I10 ESSENTIAL (PRIMARY) HYPERTENSION 10/24/2018 FENG [facility], ALI FACP CCDS Ot I25.10 ATHSCL HEART DISEASE OF [place] CORONARY 10/24/2018 FENG GODWIN [facility], ALI FACP CCDS Ot I65.29 OCCLUSION AND STENOSIS OF UNSPECIFIED CA 10/24/2018 FENG GODWIN [facility], ALI FACP CCDS Ot I73.9 PERIPHERAL VASCULAR DISEASE, UNSPECIFIED 10/24/2018 FENG MD [facility], ALI FACP CCDS Ot R06.02 SHORTNESS OF BREATH 10/24/2018 FENG GODWIN [facility], ALI FACP CCDS Ot Z72.0 TOBACCO USE 10/24/2018 FENG GODWIN [facility], ALI FACP CCDS Ot E78.5 HYPERLIPIDEMIA, UNSPECIFIED 10/24/2018 FENG MD [facility], ALI FACP CCDS Ot I10 ESSENTIAL (PRIMARY) HYPERTENSION 10/24/2018 FENG GODWIN [facility], ALI FACP CCDS Ot I25.10 ATHSCL HEART DISEASE OF [place] CORONARY 10/24/2018 FENG GODWIN [facility], ALI FACP CCDS Ot I73.9 PERIPHERAL VASCULAR DISEASE, UNSPECIFIED 10/24/2018 FENG GODWIN [facility], ALI FACP CCDS Ot R06.02 SHORTNESS OF BREATH 10/24/2018 FENG GODWIN [facility], ALI FACP CCDS Ot Z72.0 TOBACCO USE 10/31/2018 VAHE GRANT FREIGHT WEIGHER Ot G46.4 CEREBELLAR STROKE SYNDROME 12/30/2018 VAHE GRANT Ot G46.4 CEREBELLAR STROKE SYNDROME 11/13/2019 Benedict Espinoza W 303.90 OTHER AND UNSPECIFIED ALCOHOL DEPENDENCE, UNSPECIFIED DRINKING BEHAVIOR 11/13/2019 Benedict Espinoza 571.1 ACUTE ALCOHOLIC HEPATITIS 11/13/2019 Benedict Espinoza B37.0 CANDIDAL STOMATITIS 11/13/2019 Benedict Espinoza C44.329 SQUAMOUS CELL CARCINOMA OF SKIN OF OTHER PARTS OF FACE 11/13/2019 Benedict Espinoza E78.5 HYPERLIPIDEMIA, UNSPECIFIED 11/13/2019 Benedict Espinoza F10.20 ALCOHOL DEPENDENCE, UNCOMPLICATED 11/13/2019 Benedict Espinoza F43.21 ADJUSTMENT DISORDER WITH DEPRESSED MOOD 11/13/2019 Benedict Espinoza I10 ESSENTIAL (PRIMARY) HYPERTENSION 11/13/2019 Benedict Espinoza I60.9 NONTRAUMATIC SUBARACHNOID HEMORRHAGE, UNSPECIFIED 11/13/2019 Benedict Espinoza I61.9 NONTRAUMATIC INTRACEREBRAL HEMORRHAGE, UNSPECIFIED 11/13/2019 Benedict Espinoza K70.10 ALCOHOLIC HEPATITIS WITHOUT ASCITES 11/13/2019 Benedict Espinoza L20.9 ATOPIC DERMATITIS, UNSPECIFIED 11/13/2019 Benedict Espinoza M62.838 OTHER MUSCLE SPASM 11/13/2019 Benedict Espinoza Z48.02 ENCOUNTER FOR REMOVAL OF SUTURES 12/28/2019 [place] DO, TASIA B Ot R10.1 3 EPIGASTRIC PAIN 12/28/2019 [place] DO, TASIA B Ot R10.8 16 EPIGASTRIC ABDOMINAL TENDERNESS 12/28/2019 [place], TASIA B Ot Z95.5 PRESENCE OF CORONARY ANGIOPLASTY IMPLANT 01/02/2020 [place] DO, TASIA B Ot R10.1 3 EPIGASTRIC PAIN 01/02/2020 [place] DO, TASIA B Ot R10.8 16 EPIGASTRIC ABDOMINAL TENDERNESS 01/02/2020 [place] DO, TASIA B Ot Z95.5 PRESENCE OF CORONARY ANGIOPLASTY IMPLANT 01/12/2020 FENG GODWIN FACC, ALI FACP CCDS Ot E78.4 OTHER HYPERLIPIDEMIA 01/12/2020 FENG GODWIN FACC, ALI FACP CCDS Ot I10 ESSENTIAL (PRIMARY) HYPERTENSION 01/12/2020 FENG GODWIN FACC, ALI FACP CCDS Ot 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 01/12/2020 FENG GODWIN FACC, ALI FACP CCDS Ot R06.02 SHORTNESS OF BREATH 01/12/2020 FENG GODWIN FACC, ALI FACP CCDS Ot R07.89 OTHER CHEST PAIN 01/12/2020 [facility], ALI FACP CCDS Ot Z72.0 TOBACCO USE 01/12/2020 FENG MD FAC, ALI FACP CCDS Ot E78.4 OTHER HYPERLIPIDEMIA 01/12/2020 FENG MD FACC, ALI FACP CCDS Ot I10 ESSENTIAL (PRIMARY) HYPERTENSION 01/12/2020 [facility] [place] FACC, ALI FACP CCDS Ot 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 01/12/2020 FENG MD FACC, ALI FACP CCDS Ot R06.02 SHORTNESS OF BREATH 01/12/2020 FENG FAC, ALI FACP CCDS Ot R07.89 OTHER CHEST PAIN 01/12/2020 [facility], ALI FACP CCDS Ot Z72.0 TOBACCO USE 01/12/2020 [facility], ALI FACP CCDS Ot E78.5 HYPERLIPIDEMIA, UNSPECIFIED 01/12/2020 [facility] F[facility] CCDS Ot I10 ESSENTIAL (PRIMARY) HYPERTENSION 01/12/2020 [facility], ALI FACP CCDS Ot I25.10 ATHSCL HEART DISEASE OF [place] CORONARY 01/12/2020 [facility], ALI FACP CCDS Ot I65.29 OCCLUSION AND STENOSIS OF UNSPECIFIED CA 01/12/2020 [facility], ALI FACP CCDS Ot I73.9 PERIPHERAL VASCULAR DISEASE, UNSPECIFIED 01/12/2020 [facility], ALI FACP CCDS Ot R06.02 SHORTNESS OF BREATH 01/12/2020 [facility], ALI FACP CCDS Ot Z72.0 TOBACCO USE 01/12/2020 [facility], ALI FACP CCDS Ot E78.5 HYPERLIPIDEMIA, UNSPECIFIED 01/12/2020 [facility], ALI FACP CCDS Ot I10 ESSENTIAL (PRIMARY) HYPERTENSION 01/12/2020 [facility], ALI FACP CCDS Ot I25.10 ATHSCL HEART DISEASE OF [place] CORONARY 01/12/2020 [facility], ALI FACP CCDS Ot I73.9 PERIPHERAL VASCULAR DISEASE, UNSPECIFIED 01/12/2020 [facility], ALI FACP CCDS Ot R06.02 SHORTNESS OF BREATH 01/12/2020 [facility]ENG MD FACC, ALI FACP CCDS Ot Z72.0 TOBACCO USE 01/12/2020 CEFERINO CASTELAN, TASIA B Ot R10.1 3 EPIGASTRIC PAIN 01/12/2020 CEFERINO CASTELAN, TASIA B Ot R10.8 16 EPIGASTRIC ABDOMINAL TENDERNESS 01/12/2020 CEFERINO CASTELAN, TASIA B Ot Z95.5 PRESENCE OF CORONARY ANGIOPLASTY IMPLANT 01/15/2020 CEFERINO CASTELAN, TASIA B Ot E78.0 0 PURE HYPERCHOLESTEROLEMIA, UNSPECIFIED 01/15/2020 CEFERINO CASTELAN, TASIA B Ot F17.2 10 NICOTINE DEPENDENCE, CIGARETTES, UNCOMPL 01/15/2020 CEFERINO CATSELAN, TASIA B Ot F32.9 MAJOR DEPRESSIVE DISORDER, SINGLE EPISOD 01/15/2020 CEFERINO CASTELAN, TASIA B Ot F41.9 ANXIETY DISORDER, UNSPECIFIED 01/15/2020 CEFERINO CASTELAN, TASIA B Ot G47.3 0 SLEEP APNEA, UNSPECIFIED 01/15/2020 CEFERINO CASTELAN, TASIA B Ot G89.2 9 OTHER CHRONIC PAIN 01/15/2020 CEFERINO CASTELAN, TASIA B Ot I10 ESSENTIAL (PRIMARY) HYPERTENSION 01/15/2020 CEFERINO CASTELAN, TASIA B Ot J44.9 CHRONIC OBSTRUCTIVE PULMONARY DISEASE, U 01/15/2020 CEFERINO CASTELAN, TASIA B Ot J90 PLEURAL EFFUSION, NOT ELSEWHERE CLASSIFI 01/15/2020 CEFERINO CASTELAN, TASIA B Ot K21.9 GASTRO-ESOPHAGEAL REFLUX DISEASE WITHOUT 01/15/2020 CEFERINO CASTELAN, TASIA B Ot K59.0 0 CONSTIPATION, UNSPECIFIED 01/15/2020 CEFERINO CASTELAN, TASIA B Ot M54.9 DORSALGIA, UNSPECIFIED 01/15/2020 CEFERINO CASTELAN, TASIA B Ot Z79.8 91 DETENTION (CURRENT) USE OF OPIATE ANALGE 01/15/2020 CEFERINO CASTELAN, TASIA B Ot Z79.8 99 OTHER DETENTION (CURRENT) DRUG THERAPY 01/15/2020 CEFERINO CASTELAN, TASIA B Ot Z80.0 FAMILY HISTORY OF MALIGNANT NEOPLASM OF 01/15/2020 CEFERINO CASTELAN, TASIA B Ot 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 3 PRSNL HX OF TIA (TIA), AND CEREB INFRC W 01/15/2020 CEFERINO CASTELAN, TASIA B Ot Z88.0 ALLERGY STATUS TO PENICILLIN 01/15/2020 CEFERINO CASTELAN, TASIA B Ot Z90.4 9 ACQUIRED ABSENCE OF OTHER SPECIFIED PART 01/15/2020 CEFERINO CASTELAN, TASIA B Ot Z90.8 9 ACQUIRED ABSENCE OF OTHER ORGANS 01/15/2020 CEFERINO CASTELAN, TASIA B Ot E78.0 0 PURE HYPERCHOLESTEROLEMIA, UNSPECIFIED 01/15/2020 CEFERINO CASTELAN, TASIA B Ot F17.2 10 NICOTINE DEPENDENCE, CIGARETTES, UNCOMPL 01/15/2020 CEFERINO CASTELAN, TASIA B Ot F32.9 MAJOR DEPRESSIVE DISORDER, SINGLE EPISOD 01/15/2020 CEFERINO CASTELAN, TASIA B Ot F41.9 ANXIETY DISORDER, UNSPECIFIED 01/15/2020 CEFERINO CASTELAN, TASIA B Ot G47.3 0 SLEEP APNEA, UNSPECIFIED 01/15/2020 CEFERINO CASTELAN, TASIA B Ot G89.2 9 OTHER CHRONIC PAIN 01/15/2020 CEFERINO CASTELAN, TASIA B Ot I10 ESSENTIAL (PRIMARY) HYPERTENSION 01/15/2020 CEFERINO CASTELAN, TASIA B Ot J44.9 CHRONIC OBSTRUCTIVE PULMONARY DISEASE, U 01/15/2020 CFEERINO CASTELAN, TASIA B Ot J90 PLEURAL EFFUSION, NOT ELSEWHERE CLASSIFI 01/15/2020 CEFERINO CASTELAN, TASIA B Ot K21.9 GASTRO-ESOPHAGEAL REFLUX DISEASE WITHOUT 01/15/2020 CEFERINO CASTELAN, TASIA B Ot K59.0 0 CONSTIPATION, UNSPECIFIED 01/15/2020 CEFERINO CASTELAN, TASIA B Ot M54.9 DORSALGIA, UNSPECIFIED 01/15/2020 CEFERINO CASTELAN, TASIA B Ot Z79.8 91 DETENTION (CURRENT) USE OF OPIATE ANALGE 01/15/2020 CEFERINO CASTELAN, TASIA B Ot Z79.8 99 OTHER DETENTION (CURRENT) DRUG THERAPY 01/15/2020 CEFERINO CASTELAN, TASIA B Ot Z80.0 FAMILY HISTORY OF MALIGNANT NEOPLASM OF 01/15/2020 CEFERINO CASTELAN, TASIA B Ot Z86.7 3 PRSNL HX OF TIA (TIA), AND CEREB INFRC W 01/15/2020 CEFERINO CASTELAN, TASIA B Ot Z88.0 ALLERGY STATUS TO PENICILLIN 01/15/2020 CEFERINO CASTELAN, TASIA B Ot Z90.4 9 ACQUIRED ABSENCE OF OTHER SPECIFIED PART 01/15/2020 CEFERINO CASTELAN, TASIA B Ot Z90.8 9 ACQUIRED ABSENCE OF OTHER ORGANS 01/16/2020 CEFERINO CASTELAN, TASIA B Ot E78.0 0 PURE HYPERCHOLESTEROLEMIA, UNSPECIFIED 01/16/2020 CEFERINO DO, TASIA B Ot E78.5 HYPERLIPIDEMIA, UNSPECIFIED 01/16/2020 [place] DO, TASIA B Ot F17.2 10 NICOTINE DEPENDENCE, CIGARETTES, UNCOMPL 01/16/2020 [place] DO, TASIA B Ot F32.9 MAJOR DEPRESSIVE DISORDER, SINGLE EPISOD 01/16/2020 [place] DO, TASIA B Ot F41.9 ANXIETY DISORDER, UNSPECIFIED 01/16/2020 CEFERINO DO, TASIA B Ot G47.3 3 OBSTRUCTIVE SLEEP APNEA (ADULT) (PEDIATR 01/16/2020 DELDENOTN DO, TASIA B Ot I10 ESSENTIAL (PRIMARY) HYPERTENSION 01/16/2020 CEFERINO DO, TASIA B Ot J44.9 CHRONIC OBSTRUCTIVE PULMONARY DISEASE, U 01/16/2020 CEFERINO DO, TASIA B Ot K21.9 GASTRO-ESOPHAGEAL REFLUX DISEASE WITHOUT 01/16/2020 CEFERINO DO, TASIA B Ot K81.1 CHRONIC CHOLECYSTITIS 01/16/2020 CEFERINO DO, TASIA B Ot Z79.8 2 DETENTION (CURRENT) USE OF ASPIRIN 01/16/2020 CEFERINO DO, TASIA B Ot Z79.8 99 OTHER DETENTION (CURRENT) DRUG THERAPY 01/16/2020 CEFERINO DO, TASIA B Ot Z86.7 3 PRSNL HX OF TIA (TIA), AND CEREB INFRC W 01/16/2020 CEFERINO CASTELAN, TASIA B Ot Z88.0 ALLERGY STATUS TO PENICILLIN 01/16/2020 CEFERINO DO, TASIA B Ot E78.0 0 PURE HYPERCHOLESTEROLEMIA, UNSPECIFIED 01/16/2020 CEFERINO DO, TASIA B Ot E78.5 HYPERLIPIDEMIA, UNSPECIFIED 01/16/2020 CEFERINO DO, TASIA B Ot F17.2 10 NICOTINE DEPENDENCE, CIGARETTES, UNCOMPL 01/16/2020 CEFERINO DO, TASIA B Ot F32.9 MAJOR DEPRESSIVE DISORDER, SINGLE EPISOD 01/16/2020 [place] DO, TASIA B Ot F41.9 ANXIETY DISORDER, UNSPECIFIED 01/16/2020 CEFERINO DO, TASIA B Ot G47.3 3 OBSTRUCTIVE SLEEP APNEA (ADULT) (PEDIATR 01/16/2020 [place] DO, TASIA B Ot I10 ESSENTIAL (PRIMARY) HYPERTENSION 01/16/2020 [place] DO, TASIA B Ot J44.9 CHRONIC OBSTRUCTIVE PULMONARY DISEASE, U 01/16/2020 DEL[place] DO, TASIA B Ot K21.9 GASTRO-ESOPHAGEAL REFLUX DISEASE WITHOUT 01/16/2020 CEFERINO CASTELAN, TASIA B Ot K81.1 CHRONIC CHOLECYSTITIS 01/16/2020 CEFERINO CASTELAN, TASIA B Ot Z79.8 2 DETENTION (CURRENT) USE OF ASPIRIN 01/16/2020 CEFERINO CASTELAN, TASIA B Ot Z79.8 99 OTHER DETENTION (CURRENT) DRUG THERAPY 01/16/2020 CEFERINO CASTELAN, TASIA B Ot Z86.7 3 PRSNL HX OF TIA (TIA), AND CEREB INFRC W 01/16/2020 CEFERINO CASTELAN, TASIA B Ot Z88.0 ALLERGY STATUS TO PENICILLIN 01/22/2020 CEFERINO CASTELAN, TASIA B Ot E78.0 0 PURE HYPERCHOLESTEROLEMIA, UNSPECIFIED 01/22/2020 CEFERINO CASTELAN, TASIA B Ot F17.2 10 NICOTINE DEPENDENCE, CIGARETTES, UNCOMPL 01/22/2020 CEFERINO CASTELAN, TASIA B Ot F32.9 MAJOR DEPRESSIVE DISORDER, SINGLE EPISOD 01/22/2020 CEFERINO CASTELAN, TASIA B Ot F41.9 ANXIETY DISORDER, UNSPECIFIED 01/22/2020 CEFERINO CASTELAN, TASIA B Ot G47.3 0 SLEEP APNEA, UNSPECIFIED 01/22/2020 CEFERINO CASTELAN, TASIA B Ot G89.2 9 OTHER CHRONIC PAIN 01/22/2020 CEFERINO CASETLAN, TASIA B Ot I10 ESSENTIAL (PRIMARY) HYPERTENSION 01/22/2020 CEFERINO CASTELAN, TASIA B Ot J44.9 CHRONIC OBSTRUCTIVE PULMONARY DISEASE, U 01/22/2020 [place] CASTELAN, TASIA B Ot J90 PLEURAL EFFUSION, NOT ELSEWHERE CLASSIFI 01/22/2020 [place] CASTELAN TASIA B Ot K21.9 GASTRO-ESOPHAGEAL REFLUX DISEASE WITHOUT 01/22/2020 CEFERINO CASTELAN, TASIA B Ot K59.0 0 CONSTIPATION, UNSPECIFIED 01/22/2020 CEFERINO CASTELAN, TASIA B Ot M54.9 DORSALGIA, UNSPECIFIED 01/22/2020 CEFERINO CASTELAN, TASIA B Ot Z79.8 91 DETENTION (CURRENT) USE OF OPIATE ANALGE 01/22/2020 CEFERINO CASTELAN, TASIA B Ot Z79.8 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 01/22/2020 CEFERINO CASTELAN, TASIA B Ot Z80.0 FAMILY HISTORY OF MALIGNANT NEOPLASM OF 01/22/2020 [place] CASTELAN TASIA B Ot Z86.7 3 PRSNL HX OF TIA (TIA), AND CEREB INFRC W 01/22/2020 CEFERINO DO, TASIA B Ot Z88.0 ALLERGY STATUS TO PENICILLIN 01/22/2020 CEFERINO DO, TASIA B Ot Z90.4 9 ACQUIRED ABSENCE OF OTHER SPECIFIED PART 01/22/2020 [place] DO, TASIA B Ot Z90.8 9 ACQUIRED ABSENCE OF OTHER ORGANS 01/22/2020 [place] CASTELAN, TASIA B Ot E78.0 0 PURE HYPERCHOLESTEROLEMIA, UNSPECIFIED 01/22/2020 CEFERINO DO, TASIA B Ot F17.2 10 NICOTINE DEPENDENCE, CIGARETTES, UNCOMPL 01/22/2020 CEFERINO DO, TASIA B Ot F32.9 MAJOR DEPRESSIVE DISORDER, SINGLE EPISOD 01/22/2020 [place] CASTELAN, TASIA B Ot F41.9 ANXIETY DISORDER, UNSPECIFIED 01/22/2020 CEFERINO CASTELAN, TASIA B Ot G47.3 0 SLEEP APNEA, UNSPECIFIED 01/22/2020 CEFERINO CASTELAN, TASIA B Ot G89.2 9 OTHER CHRONIC PAIN 01/22/2020 [place] CASTELAN, TASIA B Ot I10 ESSENTIAL (PRIMARY) HYPERTENSION 01/22/2020 CEFERINO CASTELAN, TASIA B Ot J44.9 CHRONIC OBSTRUCTIVE PULMONARY DISEASE, U 01/22/2020 [place] CASTELAN, TASIA B Ot J90 PLEURAL EFFUSION, NOT ELSEWHERE CLASSIFI 01/22/2020 CEFERINO CASTELAN, TASIA B Ot K21.9 GASTRO-ESOPHAGEAL REFLUX DISEASE WITHOUT 01/22/2020 CEFERINO CASTELAN, TASIA B Ot K59.0 0 CONSTIPATION, UNSPECIFIED 01/22/2020 CEFERINO CASTELAN, TASIA B Ot M54.9 DORSALGIA, UNSPECIFIED 01/22/2020 CEFERINO CASTELAN, TASIA B Ot 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 Results Test Result Range HH - 01/13/17 11:07 Hct 49.3 % 42.0-52.0 Hgb 16.7 g/dL 14.0-17.0 Reticulocyte Count - 01/13/17 11:07 Reticulocyte Count 1.6 % 0.6-2.6 Surgical Pathology - 11/02/17 14:35 Surg Path Sent to [facility] - 11/13/19 13:18 Mg++ 1.7 mg/dL 1.6-2.6 Urinalysis - 11/13/19 13:18 Icotest Positive Negative Urine Casts Few [place] Granular Urine Volume Urine Volume Sufficient (10mL) Urine-Appearance Clear Clear Urine-Bacteria Negative Urine-Bilirubin 3+ Negative Urine-Blood Negative Negative Urine-Color [place] Colorless-[place] ow Urine-Epithelial Cells 0-5/HPF Urine-Glucose Trace Negative Urine-Ketones 1+ Negative Urine-Leukocytes Negative Negative Urine-Mucus 1+ Urine-Nitrite Negative Negative Urine-Other Urine Saved if Culture Need ed (48hrs from time of collection) Urine-pH 5.5 5-8.5 Urine-Protein 2+ Negative Urine-RBC Negative Urine-Specific [place] 1.020 1.000-1 .030 Urine-WBC Negative Urobilinogen 1.0 E.U./dL 0.2-1.0 Coronavirus SARS-CoV-2 SO 2019 - 0 07:50 Coronavirus Ab [Units/volume] in Serum Negative Negative Methicillin resistant Staphylococcus aur eus (MRSA) screening culture - 01/12/20 08:25 Methicillin resistant Staphylococcus aureus (MRSA) scr eening culture NG NRG Complete blood count (CBC) with automate d white blood cell (WBC) differential - 01/12/20 08:30 Blood leukocytes automated count (number/volume) 9.3 10*3/uL 4.3-11.0 Blood erythrocytes automated count (number/volume) 5.24 10*6/uL 4.35-5.85 Venous blood hemoglobin measurement (mass/volume) 17.2 g/dL 13.3-17.7 Blood hematocrit (volume fraction) 49 % 40-54 Automated erythrocyte mean corpuscular volume 94 [ foz_us] 80-99 Automated erythrocyte mean corpuscular h emoglobin (mass per erythrocyte) 33 pg 25-34 Automated erythrocyte mean corpuscular h emoglobin concentration measurement (mass/volume) 35 g/dL 32-36 Automated erythrocyte distribution width ratio 14. 3 % 10.0- 14.5 Automated blood platelet count (count/volume) 325 10*3/uL 130-400 Automated blood platelet mean volume measurement 9.3 [foz_us] 7.4-10.4 Automated blood neutrophils/100 leukocytes 57 % 42-75 Automated blood lymphocytes/100 leukocytes 25 % 12-44 Blood monocytes/100 leukocytes 12 % 0-12 Automated blood eosinophils/100 leukocytes 6 % 0-10 Automated blood basophils/100 leukocytes 1 % 0-10 Blood neutrophils automated count (number/volume) 5.4 10*3 1.8-7.8 Blood lymphocytes automated count (number/volume) 2.3 10*3 1.0-4.0 Blood monocytes automated count (number/volume) 1. 1 10*3 0.0-1.0 Automated eosinophil count 0.5 10*3/uL 0 .0-0.3 Automated blood basophil count (count/volume) 0.1 10*3/uL 0.0-0.1 Complete blood count (CBC) with automate d white blood cell (WBC) differential - 01/14/20 18:19 Blood leukocytes automated count (number/volume) 15.1 10*3/uL 4.3-11.0 Blood erythrocytes automated count (number/volume) 4.65 10*6/uL 4.35-5.85 Venous blood hemoglobin measurement (mass/volume) 15.5 g/dL 13.3-17.7 Blood hematocrit (volume fraction) 45 % 40-54 Automated erythrocyte mean corpuscular volume 96 [ foz_us] 80-99 Automated erythrocyte mean corpuscular h emoglobin (mass per erythrocyte) 33 pg 25-34 Automated erythrocyte mean corpuscular h emoglobin concentration measurement (mass/volume) 35 g/dL 32-36 Automated erythrocyte distribution width ratio 13. 4 % 10.0- 14.5 Automated blood platelet count (count/volume) 334 10*3/uL 130-400 Automated blood platelet mean volume measurement 9.1 [foz_us] 7.4-10.4 Automated blood neutrophils/100 leukocytes 76 % 42-75 Automated blood lymphocytes/100 leukocytes 12 % 12-44 Blood monocytes/100 leukocytes 11 % 0-12 Automated blood eosinophils/100 leukocytes 1 % 0-10 Automated blood basophils/100 leukocytes 0 % 0-10 Blood neutrophils automated count (number/volume) 11.4 10*3 1.8-7.8 Blood lymphocytes automated count (number/volume) 1.7 10*3 1.0-4.0 Blood monocytes automated count (number/volume) 1. 7 10*3 0.0-1.0 Automated eosinophil count 0.2 10*3/uL 0 .0-0.3 Automated blood basophil count (count/volume) 0.1 10*3/uL 0.0-0.1 Manual absolute plasma cell count - 12/31 11/19 18:19 Blood monocytes/100 leukocytes 11 % NRG Manual blood segmented neutrophils/100 leukocytes 71 % NRG Blood band neutrophils/100 leukocytes 4 % NRG Manual blood lymphocytes/100 leukocytes 9 % NRG Manual eosinophils/100 leukocytes in nose 0 % NRG Manual blood basophils/100 leukocytes 0 % NRG Manual blood lymphocytes variant/100 leukocytes 5 % NRG Blood erythrocyte morphology finding identification NORMAL NRG Blood lactic acid measurement (moles/vol ume) - 01/14/20 18:19 Blood lactic acid measurement (moles/volume) 0.95 mmol/L 0.50-2.00 Comprehensive metabolic panel - 01/14/20 18:19 Serum or plasma sodium measurement (moles/volume) 132 mmol/L 135-145 Serum or plasma potassium measurement (moles/volume) 4.4 mmol/L 3.6-5.0 Serum or plasma chloride measurement (moles/volume) 95 mmol/L 98-107 Carbon dioxide 24 mmol/L 21-32 Serum or plasma anion gap determination (moles/volume) 13 mmol/L 5-14 Serum or plasma urea nitrogen measurement (mass/volume ) 10 mg/dL 7-18 Serum or plasma creatinine measurement (mass/volume) 0.93 mg/dL 0.60-1.30 Serum or plasma urea nitrogen/creatinine mass ratio 11 NRG Serum or plasma creatinine measurement w ith calculation of estimated glomerular filtration rate > NRG Serum or plasma glucose measurement (mass/volume) 108 mg/dL 70-105 Serum or plasma calcium measurement (mass/volume) 9.2 mg/dL 8.5-10.1 Serum or plasma total bilirubin measurement (mass/volu me) 0.7 mg/dL 0.1-1.0 Serum or plasma alkaline phosphatase anatoly surement (enzymatic activity/volume) 43 U/L 40-136 Serum or plasma aspartate aminotransfera se measurement (enzymatic activity/volume) 16 U/L 5-34 Serum or plasma alanine aminotransferase measurement (enzymatic activity/volume) 14 U/L 0-55 Serum or plasma protein measurement (mass/volume) 6.4 g/dL 6.4-8.2 Serum or plasma albumin measurement (mass/volume) 3.3 g/dL 3.2-4.5 CALCIUM CORRECTED 9.8 mg/dL 8.5-10.1 Lipase - 01/14/20 18:19 Lipase 28 U/L 8-78 Complete urinalysis with reflex to cultu re - 01/14/20 18:42 Urine color determination YELLOW NRG Urine clarity determination CLEAR NR G Urine pH measurement by test strip 7.0 5-9 Specific gravity of urine by test strip 1.010 1.016-1.022 Urine protein assay by test strip, semi-quantitative NEGATIVE NEGATIVE Urine glucose detection by automated test strip NE GATIVE NEGATIVE Erythrocytes detection in urine sediment by light micr oscopy NEGATIVE NEGATIVE Urine ketones detection by automated test strip NE GATIVE NEGATIVE Urine nitrite detection by test strip NEGATIVE NEGATIVE Urine total bilirubin detection by test strip NEGA TIVE NEGATIVE Urine urobilinogen measurement by automated test strip (mass/volume) 0.2 mg/dL < = 1.0 Urine leukocyte esterase detection by dipstick NEG ATIVE NEGATIVE Automated urine sediment erythrocyte cou nt by microscopy (number/high power field) [HPF] NRG Automated urine sediment leukocyte count by microscopy (number/high power field) NONE NRG Bacteria detection in urine sediment by light microsco py NEGATIVE NRG Squamous epithelial cells detection in u rine sediment by light microscopy 2-5 NRG Crystals detection in urine sediment by light microsco py PRESENT NRG Casts detection in urine sediment by light microscopy NONE NRG Mucus detection in urine sediment by light microscopy NEGATIVE NRG Complete urinalysis with reflex to culture NO NRG Other elements identification in urine sediment by lig ht microscopy SODIUM URATE CRYSTAL NRG Complete blood count (CBC) with automate d white blood cell (WBC) differential - 01/15/20 05:05 Blood leukocytes automated count (number/volume) 11.5 10*3/uL 4.3-11.0 Blood erythrocytes automated count (number/volume) 4.70 10*6/uL 4.35-5.85 Venous blood hemoglobin measurement (mass/volume) 15.2 g/dL 13.3-17.7 Blood hematocrit (volume fraction) 46 % 40-54 Automated erythrocyte mean corpuscular volume 98 [ foz_us] 80-99 Automated erythrocyte mean corpuscular h emoglobin (mass per erythrocyte) 32 pg 25-34 Automated erythrocyte mean corpuscular h emoglobin concentration measurement (mass/volume) 33 g/dL 32-36 Automated erythrocyte distribution width ratio 13. 7 % 10.0- 14.5 Automated blood platelet count (count/volume) 303 10*3/uL 130-400 Automated blood platelet mean volume measurement 9.2 [foz_us] 7.4-10.4 Automated blood neutrophils/100 leukocytes 67 % 42-75 Automated blood lymphocytes/100 leukocytes 16 % 12-44 Blood monocytes/100 leukocytes 14 % 0-12 Automated blood eosinophils/100 leukocytes 3 % 0-10 Automated blood basophils/100 leukocytes 0 % 0-10 Blood neutrophils automated count (number/volume) 7.8 10*3 1.8-7.8 Blood lymphocytes automated count (number/volume) 1.8 10*3 1.0-4.0 Blood monocytes automated count (number/volume) 1. 6 10*3 0.0-1.0 Automated eosinophil count 0.4 10*3/uL 0 .0-0.3 Automated blood basophil count (count/volume) 0.0 10*3/uL 0.0-0.1 Comprehensive metabolic panel - 01/15/20 05:05 Serum or plasma sodium measurement (moles/volume) 136 mmol/L 135-145 Serum or plasma potassium measurement (moles/volume) 4.7 mmol/L 3.6-5.0 Serum or plasma chloride measurement (moles/volume) 99 mmol/L 98-107 Carbon dioxide 28 mmol/L 21-32 Serum or plasma anion gap determination (moles/volume) 9 mmol/L 5-14 Serum or plasma urea nitrogen measurement (mass/volume ) 8 mg/dL 7-18 Serum or plasma creatinine measurement (mass/volume) 1.00 mg/dL 0.60-1.30 Serum or plasma urea nitrogen/creatinine mass ratio 8 NRG Serum or plasma creatinine measurement w ith calculation of estimated glomerular filtration rate > NRG Serum or plasma glucose measurement (mass/volume) 81 mg/dL 70-105 Serum or plasma calcium measurement (mass/volume) 9.7 mg/dL 8.5-10.1 Serum or plasma total bilirubin measurement (mass/volu me) 0.9 mg/dL 0.1-1.0 Serum or plasma alkaline phosphatase anatoly surement (enzymatic activity/volume) 41 U/L 40-136 Serum or plasma aspartate aminotransfera se measurement (enzymatic activity/volume) 17 U/L 5-34 Serum or plasma alanine aminotransferase measurement (enzymatic activity/volume) 13 U/L 0-55 Serum or plasma protein measurement (mass/volume) 6.3 g/dL 6.4-8.2 Serum or plasma albumin measurement (mass/volume) 3.3 g/dL 3.2-4.5 CALCIUM CORRECTED 10.3 mg/dL 8.5-10.1 Encounters ACCT No. Visit Date/Time Discharge Status Pt. Type Provider Facility Loc./Unit Complaint [id number] 11/13/2019 12:38:00 11/13/2019 16:25 :00 DIS Outpatient [facility]– [place] [id number] 11/02/2017 14:35:00 11/02/2017 23:59: 00 DIS Outpatient Briseida Broderick [id number] 01/13/2017 11:00:00 01/13/2017 23:59: 00 DIS Outpatient Briseida Broderick [id number] 07/24/2016 10:47:00 07/24/2016 23:59: 00 DIS Outpatient Briseida Broderick [id number] 11/13/2019 13:20:47 Document Registration [id number] 11/13/2019 12:40:11 Document Registration [id number] 04/07/2018 10:36:00 Document Registration [id number] 03/15/2018 14:00:00 Document Registration [id number] 02/17/2018 13:09:00 Document Registration [id number] 11/18/2017 09:13:00 Document Registration [id number] 11/02/2017 09:48:00 Document Registration [id number] 10/27/2017 13:37:00 Document Registration [id number] 11/02/2017 14:35:00 Document Registration [id number] 02/08/2020 05:39:00 10:41:00 DIS Outpatient CEFERINO CASTELAN TASIA B [facility] PREOP SCREENING [id number] 01/14/2020 22:20:00 13:52:00 DIS Inpatient CEFERINO DO TASIA B [facility] 4TH ABD PAIN [id number] 01/12/2020 07:46:00 13:10:00 DIS Outpatient CEFERINO DO TASIA B [facility] SDC GALLBLADDER SLUDGE [id number] 01/10/2020 06:09:00 15:00:00 DIS Outpatient CEFERINO CASTELAN TASIA B [facility] PREOP GALLBLADDER SLUDGE [id number] 12/26/2019 10:41:00 23:59:59 CLS Outpatient CEFERINO CASTELAN TASIA B [facility] RAD KUB [id number] 12/30/2018 11:10:00 019 12:00:00 DIS Outpatient VAHE GRANT [facility] REHAB CVA [id number] 12/02/2017 11:00:00 018 23:59:59 CLS Preadmit FENG GODWIN FACC, NICOLE SAN CCDS [facility] CARD E78.4 HYPERLIPI DEMIA [id number] 11/23/2017 12:57:00 018 23:59:59 CLS Outpatient FENG GODWIN FACC, NICOLE SAN CC DS [facility] RAD E78.4 HYPER LIPIDEMIA [id number] 11/11/2017 07:18:00 018 23:59:59 CLS Outpatient FENG GODWIN FACC, NICOLE SAN CC DS [facility] CARD E78.4 HYPER LIPIDEMIA [id number] 02/10/2017 19:24:00 017 05:35:00 DIS Outpatient BRISEIDA BRODERICK MD [facility] SLEEP PACO,COPD,HTN [id number] 09/10/2015 07:03:00 016 23:59:59 CLS Outpatient FENG GODWIN FACC, NICOLE STEWARTP CC DS [facility] CATH PVD [id number] 09/03/2015 15:05:00 016 11:25:00 DIS Outpatient FENG GODWIN FACC, NICOLE STEWARTP CC DS [facility] CATH SHORTNESS O F BREATH,ABNORMAL STRESS TEST,ANGINA [id number] 08/20/2015 08:02:00 016 23:59:59 CLS Outpatient FENG GODWIN FACC, NICOLE SAN CC DS [facility] CARD CHEST DISCOMFORT,SOB,PVD,HLP,HTN [id number] 08/16/2015 07:50:00 016 23:59:59 CLS Outpatient FENG GODWIN FACC, NICOLE SAN CC DS [facility] CARD CHEST DISCOMFORT,SHORTNESS OF BREATH [id number] 11/14/2013 10:29:00 014 15:49:00 DIS Emergency GERMÁN GODWIN, OPAL Jackson [facility] ER ABD PAIN/CRAMPI NG [id number] 02/12/2020 08:00:00 P EN PreadTASIA Caceres DO [facility] ENDO SCREENING/CHRONIC GASTRITIS
--- NOTE | 2020-02-11 17:56 | ED Abdominal Pain ---
General Chief Complaint: Abdominal/GI Problems Stated Complaint: SEVERE ABD PAIN,N/V Nursing Triage Note: PT IN BY [facility], C/O ABDOMINAL PAIN, PATIENT CURRENTLY POOR HISTORIAN. NOT ANSWERING QUESTIONS APPROPRIATELY. RECEIVED FENT 50MCG X2 BY EMS ET ZOFRAN X1 BY EMS. PATIENT WAS SCHEDULED FOR SCOPE THIS COMING WEEK, BUT WAS CANCELED D/T PATIENT NOT GETTING COVID SWAB Sepsis Screen: No Definite Risk Source of Information: Patient, EMS, Family Exam Limitations: No Limitations History of Present Illness Date Seen by Provider: Feb 11, 2020 Time Seen by Provider: 17:51 Initial Comments To ER with reports abdominal pain nausea and vomiting. This began worse than usual this morning with projectile vomiting and right-sided abdominal pain. However he's been having some abdominal pain for quite some time, has a common bile duct stent. However a laparoscopic cholecystectomy here on 01/12/20. He's been having some persistent abdominal pain. 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 Re Hoffmann reports that she believes that may be the cause of his pain. However he did have projectile vomiting this morning. No fevers. EMS gave 2 doses of 50 g of fentanyl in route to the hospital. Patient is very difficult to get a history from secondary to expressive aphasia/word searching following a CVA. I called the to verify that this was his normal and she states that the expressive aphasia/word searching is his baseline. Patient reports that at this time he has no pain. Timing/Duration: 1-2 Days Severity/Quality: Moderate Location: RUQ, Generalized Abdomen Radiation: No Radiation Activities at Onset: None Associated Symptoms: Nausea/Vomiting Allergies and Home Medications Allergies Coded Allergies: Penicillins (Unverified Allergy, Intermediate, hives, 01/09/20) Home Medications Alprazolam 0.25 Mg Tablet, 0.25 MG PO BID PRN for ANXIETY, (Reported) Escitalopram Oxalate 20 Mg Tablet, 20 MG PO DAILY, (Reported) Lisinopril 20 Mg Tablet, 10 MG PO DAILY, (Reported) TAKES OF A 20MG Metoprolol Tartrate 100 Mg Tablet, 50 MG PO BID, (Reported) TAKES OF A 100MG TAB TWICE DAILY [place] 3 Polyunsat Fatty Acids 1,000 Mg Cap, 1,000 MG PO BID, (Reported) Omeprazole 20 Mg Capsule.dr, 20 MG PO DAILY, (Reported) Trazodone HCl 50 Mg Tablet, 50-150 MG PO HS PRN for SLEEP, (Reported) TAKES 1 TO 3 (50MG) TABS Patient Home Medication List Home Medication List Reviewed: Yes Review of Systems Review of Systems Constitutional: see HPI EENTM: No Symptoms Reported Respiratory: No Symptoms Reported Cardiovascular: No Symptoms Reported Gastrointestinal: See HPI, Abdominal Pain Genitourinary: No Symptoms Reported Musculoskeletal: no symptoms reported Skin: no symptoms reported Psychiatric/Neurological: No Symptoms Reported Endocrine: No Symptoms Reported Past Jtmtpfv-Hoatps-Zcbyqw Hx Patient Social History Alcohol Use: Regular Use Number of Drinks Today: AA Alcohol Beverage of Choice: Beer Recreational Drug Use: No Smoking Status: Current Someday Smoker Type Used: Cigarettes 2nd Hand Smoke Exposure: Yes Recent Foreign Travel: No Contact w/Someone Who Travel: No Recent Infectious Disease Expo: No Recent Hopitalizations: Yes (NOVEMBER-2019 ) Physical Abuse: No Sexual Abuse: No Mistreated: No Fear: No Immunizations Up To Date PED Vaccines UTD: No Seasonal Allergies Seasonal Allergies: Yes Past Medical History Surgeries: Yes (HERNIA REPAIR, STENT IN LEGS) Appendectomy, Gallbladder Respiratory: Yes Sleep Apnea, COPD Currently Using CPAP: No (DOESN'T USE CPAP) Cardiac: Yes High Cholesterol, Hypertension Neurological: Yes Stroke Sexually Transmitted Disease: No HIV/AIDS: No Genitourinary: No Gastrointestinal: Yes Gastroesophageal Reflux Musculoskeletal: Yes Chronic Back Pain Endocrine: No HEENT: Yes (READING GLASSES, TOP DENTURE) Loss of Vision: Denies Hearing Impairment: Denies Cancer: No Psychosocial: Yes Anxiety, Depression Integumentary: No Blood Disorders: No Adverse Reaction/Blood Tranf: No (N/A) Family Medical History Cancer, Stroke Physical Exam Vital Signs Vital Signs - First Documented 02/11/20 16:58 Temp 36.8 Pulse 63 Resp 23 B/P (MAP) 133/83 (100) Pulse Ox 95 O2 Delivery Room Air Capillary Refill : Less Than 3 Seconds Height/Weight/BMI Height: 5'7.00" Weight: 185lbs. 0.0oz. 83.010586to; 26.00 BMI Method:Stated General Appearance: WD/WN, no apparent distress HEENT: PERRL/EOMI, normal ENT inspection Neck: non-tender, full range of motion Respiratory: no respiratory distress, no accessory muscle use Cardiovascular: regular rate, rhythm Gastrointestinal: normal bowel sounds, non tender, soft; No guarding, No rebound, No tenderness; other (incisions are clean dry and intact. Bowel sounds are normal.) Neurologic/Psychiatric: alert, normal mood/affect, other (have some difficulty with word finding and expressive aphasia. He can answer very basic questions but when asked to elaborate or asked open-ended question he has difficulty with speaking. Again, I spoke with his Keshia who confirms this is his normal after the stroke.) Skin: normal color, warm/dry Exam Comments Has a history of peripheral vascular disease. Get a CT angiogram and pelvis to evaluate for mesenteric ischemia. Focused Exam Lactate Level 02/11/20 16:55: Lactic Acid Level 2.43*H 02/11/20 19:03: Lactic Acid Level Laboratory Tests Test 02/11/20 16:55 02/11/20 19:03 Lactic Acid Level 2.43 MMOL/L (0.50-2.00) *H Progress/Results/Core Measures Results/Orders Lab Results Laboratory Tests Test 02/11/20 16:55 02/11/20 19:03 Range/Units White Blood Count 11.3 H 4.3-11.0 10^3/uL Red Blood Count 5.13 4.35-5.85 10^6/uL Hemoglobin 16.4 13.3-17.7 G/DL Hematocrit 48 40-54 % Mean Corpuscular Volume 93 80-99 FL Mean Corpuscular Hemoglobin 32 25-34 PG Mean Corpuscular Hemoglobin Concent 34 32-36 G/DL Red Cell Distribution Width 13.4 10.0-14.5 % Platelet Count 256 130-400 10^3/uL Mean Platelet Volume 9.8 7.4-10.4 FL Neutrophils (%) (Auto) 69 42-75 % Lymphocytes (%) (Auto) 20 12-44 % Monocytes (%) (Auto) 9 0-12 % Eosinophils (%) (Auto) 2 0-10 % Basophils (%) (Auto) 0 0-10 % Neutrophils # (Auto) 7.8 1.8-7.8 X 10^3 Lymphocytes # (Auto) 2.3 1.0-4.0 X 10^3 Monocytes # (Auto) 1.0 0.0-1.0 X 10^3 Eosinophils # (Auto) 0.3 0.0-0.3 10^3/uL Basophils # (Auto) 0.1 0.0-0.1 10^3/uL Sodium Level 137 135-145 MMOL/L Potassium Level 4.7 3.6-5.0 MMOL/L Chloride Level 102 98-107 MMOL/L Carbon Dioxide Level 22 21-32 MMOL/L Anion Gap 13 5-14 MMOL/L Blood Urea Nitrogen 14 7-18 MG/DL Creatinine 1.08 0.60-1.30 MG/DL Estimat Glomerular Filtration Rate > 60 BUN/Creatinine Ratio 13 Glucose Level 104 70-105 MG/DL Lactic Acid Level 2.43 *H 0.50-2.00 MMOL/L Calcium Level 9.3 8.5-10.1 MG/DL Corrected Calcium 9.5 8.5-10.1 MG/DL Total Bilirubin 0.5 0.1-1.0 MG/DL Aspartate Amino Transf (AST/SGOT) 111 H 5-34 U/L Alanine Aminotransferase (ALT/SGPT) 59 H 0-55 U/L Alkaline Phosphatase 76 40-136 U/L Total Protein 7.0 6.4-8.2 GM/DL Albumin 3.8 3.2-4.5 GM/DL Lipase 124 H 8-78 U/L My Orders Orders - PARAMJIT HAYWOOD APRN Lipase (02/11/20 17:51) Cbc With Automated Diff (02/11/20 17:51) Comprehensive Metabolic Panel (02/11/20 17:51) Ed Iv/Invasive Line Start (02/11/20 17:51) Ct Angio Abdomen/Pelv W (02/11/20 17:51) Lactic Acid Analyzer (02/11/20 17:51) Iohexol Injection (Omnipaque 350 Mg/Ml 1 (02/11/20 18:30) Received Contrast (Hold Metformin- Contr (02/11/20 18:30) Ns (Ivpb) (Sodium Chloride 0.9% Ivpb Bag (02/11/20 18:30) Ns Iv 500 Ml (Sodium Chloride 0.9%) (02/11/20 19:15) Ns Iv 500 Ml (Sodium Chloride 0.9%) (02/11/20 19:15) Medications Given in ED Current Medications Medications Dose Ordered Sig/Boyd Route Start Time Stop Time Status Last Admin Dose Admin Iohexol 100 ml ONCE ONCE IV 02/11/20 18:30 02/11/20 18:31 DC 02/11/20 18:52 85 ML Sodium Chloride 100 ml ONCE ONCE IV 02/11/20 18:30 02/11/20 18:31 DC 02/11/20 18:52 80 ML Vital Signs/I&O 02/11/20 02/11/20 16:58 17:59 Temp 36.8 36.9 Pulse 63 74 Resp 23 B/P (MAP) 133/83 (100) 135/76 Pulse Ox 95 93 O2 Delivery Room Air Nasal Cannula Blood Pressure Mean: 100 Diagnostic Imaging Diagonstic Imaging: CT Comments NAME: [facility] REC#: [id number] PT STATUS: REG ER : 1960 PHYSICIAN: PARAMJIT HAYWOOD APRN ADMIT DATE: 02/11/20/ER Draft Date of Exam:02/11/20 CT ANGIO ABDOMEN/PELV W PROCEDURE: CT Angio abdomen/pelvis with. TECHNIQUE: Multiple contiguous axial images were obtained through the abdomen and pelvis after the uneventful bolus administration of intravenous contrast. Sagittal and coronal MIP reconstructions with then performed. All CT scans use one or more of the following dose optimizing techniques: automated exposure control, MA and/or KvP adjustment based on patient size and exam type or iterative reconstruction. INDICATION: Abdominal pain. COMPARISON: Prior examination from 01/14/2020. FINDINGS: There is minimal bibasilar subsegmental atelectasis and/or pneumonitis. Heart size is normal. The liver is normal in size and without focal lesions. The gallbladder is surgically absent. There is no biliary ductal dilatation. Spleen is normal. The pancreas and adrenal glands are unremarkable. The kidneys are unremarkable, apart from some mild cortical scarring on the left. There is some atherosclerotic calcination of the aorta. Aorta also has some mural thrombus. 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 There appears to be reconstitution of the left common femoral artery via collaterals. There is no free air. There is no ascites. There are no focal inflammatory changes. Mild diverticular disease without evidence of diverticulitis. There is no mass, adenopathy or free fluid. There are minimal degenerative changes in the spine. IMPRESSION: 1. Mild diverticular disease without evidence of diverticulitis. 2. Minimal bibasilar subsegmental atelectasis and/or pneumonitis. 3. Pneumobilia secondary to a common bile duct stent. 4. Moderate atherosclerotic calcification of the aorta and occlusion of the left common iliac artery. There is reconstitution of the left common femoral artery, presumably via collaterals. 5. The previously seen free air has resolved. Dictated on workstation # [id number] Dict: 02/11/20 1856 Trans: 02/11/20 190 [facility] [id number] Interpreted by: LAMAR SHARMA MD Electronically signed by: Departure Impression Primary Impression: Abdominal pain Qualified Codes: R10.9 - Unspecified abdominal pain Disposition: HOME, SELF-CARE Condition: Stable Departure-Patient Inst. Decision time for Depature: 19:30 Referrals: NO,LOCAL PHYSICIAN (PCP) Primary Care Physician [facility] (Family) Primary Care Physician Patient Instructions: No Instuctions Given Add. Discharge Instructions: 1. Return to ER for any concerns 2. All discharge instructions reviewed with patient and/or family. Voiced understanding. Copy Copies To 1: TASIA DE LA VEGA PETER J FISHING ROD ASSEMBLER Feb 11, 2020 17:55
[2020-02-11 18:07] LABS: BASOPHILS # (AUTO) 0.1 10^3/uL (0.0-0.1); BASOPHILS % (AUTO) 0 % (0-10); EOSINOPHILS # (AUTO) 0.3 10^3/uL (0.0-0.3); EOSINOPHILS % (AUTO) 2 % (0-10); HEMATOCRIT 48 % (40-54); HEMOGLOBIN 16.4 G/DL (13.3-17.7); LYMPHOCYTES # (AUTO) 2.3 X 10^3 (1.0-4.0); LYMPHOCYTES % (AUTO) 20 % (12-44); MEAN CORPUSCULAR HEMOGLOBIN 32 PG (25-34); MEAN CORPUSCULAR HGB CONC 34 G/DL (32-36); MEAN CORPUSCULAR VOLUME 93 FL (80-99); MEAN PLATELET VOLUME 9.8 FL (7.4-10.4); MONOCYTES % (AUTO) 9 % (0-12); NEUTROPHILS # (AUTO) 7.8 X 10^3 (1.8-7.8); NEUTROPHILS % (AUTO) 69 % (42-75); PLATELET COUNT 256 10^3/uL (130-400); RED CELL DISTRIBUTION WIDTH 13.4 % (10.0-14.5); WHITE BLOOD COUNT 11.3 10^3/uL (4.3-11.0)
[2020-02-11 18:10] LABS: ALBUMIN 3.8 GM/DL (3.2-4.5)
[2020-02-11 18:11] LABS: CHLORIDE 102 MMOL/L (98-107); POTASSIUM 4.7 MMOL/L (3.6-5.0); SODIUM 137 MMOL/L (135-145)
[2020-02-11 18:12] LABS: CALCIUM 9.3 MG/DL (8.5-10.1)
[2020-02-11 18:13] LABS: GLUCOSE 104 MG/DL (70-105)
[2020-02-11 18:14] LABS: CARBON DIOXIDE 22 MMOL/L (21-32)
[2020-02-11 18:15] LABS: BILIRUBIN,TOTAL 0.5 MG/DL (0.1-1.0)
[2020-02-11 18:16] LABS: ALKALINE PHOSPHATASE 76 U/L (40-136)
[2020-02-11 18:17] LABS: CREATININE SERUM 1.08 MG/DL (0.60-1.30); GFR ESTIMATED > 60
[2020-02-11 18:18] LABS: BUN/CREATININE RATIO 13
[2020-02-11 18:19] LABS: ALANINE AMINOTRANSFERASE 59 U/L (0-55)
[2020-02-11 18:20] LABS: LIPASE 124 U/L (8-78)
[2020-02-11] MEDS ORDERED: IOHEXOL 350 MG/ML 100 ML (OMNIPAQUE 350) VIAL IV ONE (18:30)
[2020-02-11] MEDS ORDERED: HOLD METFORMIN - RECEIVED CONTRAST 20 ML VIAL IV SCH (18:30)
[2020-02-11] MEDS ORDERED: NS 100 ML (IVPB) BAG IV ONE (18:30)
--- NOTE | 2020-02-11 19:05 | Diagnostic Imaging Report ---
PROCEDURE: CT Angio abdomen/pelvis with. TECHNIQUE: Multiple contiguous axial images were obtained through the abdomen and pelvis after the uneventful bolus administration of intravenous contrast. Sagittal and coronal MIP reconstructions with then performed. All CT scans use one or more of the following dose optimizing techniques: automated exposure control, MA and/or KvP adjustment based on patient size and exam type or iterative reconstruction. INDICATION: Abdominal pain. COMPARISON: Prior examination from 01/14/2020. FINDINGS: There is minimal bibasilar subsegmental atelectasis and/or pneumonitis. Heart size is normal. The liver is normal in size and without focal lesions. The gallbladder is surgically absent. There is no biliary ductal dilatation. Spleen is normal. The pancreas and adrenal glands are unremarkable. The kidneys are unremarkable, apart from some mild cortical scarring on the left. There is some atherosclerotic calcination of the aorta. Aorta also has some mural thrombus. 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 There appears to be reconstitution of the left common femoral artery via collaterals. There is no free air. There is no ascites. There are no focal inflammatory changes. Mild diverticular disease without evidence of diverticulitis. There is no mass, adenopathy or free fluid. There are minimal degenerative changes in the spine. IMPRESSION: 1. Mild diverticular disease without evidence of diverticulitis. 2. Minimal bibasilar subsegmental atelectasis and/or pneumonitis. 3. Pneumobilia secondary to a common bile duct stent. 4. Moderate atherosclerotic calcification of the aorta and occlusion of the left common iliac artery. There is reconstitution of the left common femoral artery, presumably via collaterals. 5. The previously seen free air has resolved. Dictated by: Dictated on workstation # [id number]
[2020-02-11] MEDS ORDERED: NS IV 500 ML 500 ML ONE (19:08)
[2020-02-11] MEDS ORDERED: NS IV 500 ML 500 ML IV SCH ×2 (19:15)
[2020-02-11] MEDS ORDERED: RX-ONDANSETRON 4 MG ODT (ZOFRAN) PPK #4 PO STA (19:40)
[2020-02-11] MEDS ORDERED: RX-HYDROCODONE/APAP 5/325 MG #4 TAB PK PO PRN (19:45)
[2020-02-11 19:55] VITALS: BP 131/72
== END 2020-02-11 19:55 | disposition home or self-care (01) ==
LOC: EDUNIT# 16:49 → ER 16:51
DX: R10.84 Generalized abdominal pain (principal); I69.320 Aphasia following cerebral infarction; I10 Essential (primary) hypertension; K21.9 Gastro-esophageal reflux disease without esophagitis; F41.9 Anxiety disorder, unspecified; F32.9 Major depressive disorder, single episode, unspecified; Z90.49 Acquired absence of other specified parts of digestive tract; F17.210 Nicotine dependence, cigarettes, uncomplicated; Z88.0 Allergy status to penicillin
CPT/HCPCS: 36415; 74174; 80053; 83605; 83690; 85025

== ENCOUNTER → 2020-02-14 | Outpatient (CLI) | payer OTHER | LOC: LAB FS 10:31 | PROVIDERS: ATTEND Surgery | DX: Z12.11 Encounter for screening for malignant neoplasm of colon (principal); K29.50 Unspecified chronic gastritis without bleeding; Z20.828 Contact with and (suspected) exposure to other viral communicable diseases | CPT/HCPCS: 87635 ==

== ENCOUNTER 2020-02-19 09:24 | Day surgery (SDC) | payer OTHER ==
[~2020-02-19] VITALS: Ht 170 cm; Wt 75.9 kg
--- NOTE | 2020-02-19 09:37 | Progress Note-Pre Operative ---
Pre-Operative Progress Note H&P Reviewed The H&P was reviewed, patient examined and no changes noted. Time Seen by Provider: 09:35 Date H&P Reviewed: Feb 19, 2020 Time H&P Reviewed: 09:35 Pre-Operative Diagnosis: Gastritis, Abd pain, CBD stent, Screening colon, E levated CEA CA19-9 TASIA DE LA VEGA DO Feb 19, 2020 09:37
[2020-02-19] MEDS ORDERED: LACTATED RINGERS 1,000 ML IV STA (10:17)
[2020-02-19] MEDS ORDERED: LACTATED RINGERS 1,000 ML IV ONE (10:20)
[2020-02-19] MEDS ORDERED: HURRICAINE EXT TUBE (BENZOCAINE) XX PRN (10:30)
[2020-02-19 10:40] VITALS: BP 112/57
[2020-02-19] MEDS ORDERED: MIDAZOLAM 2 MG/2 ML (VERSED) VIAL ONE (11:03)
[2020-02-19] MEDS ORDERED: proPOfol 200 MG/20 ML (DIPRIVAN) VIAL IV ONE ×2 (11:03→11:05)
[2020-02-19 11:40] VITALS: BP 105/59
[2020-02-19 11:45] VITALS: BP 124/56
--- NOTE | 2020-02-19 11:48 | Progress Note-Post Operative ---
Post-Operative Progess Note Surgeon (s)/Compressor Station Engineer (s) Surgeon TASIA DE LA VEGA DO Compressor Station Engineer: none Pre-Operative Diagnosis Gastritis, Abd pain, CBD stent, Screening colon, Elevated CEA CA19-9 Post-Operative Diagnosis Gastritis Esophagitis Hiatal Hernia CBD stent Colon polyps int hemorrhoids Procedure & Operative Findings Date of Procedure 02/19/20 Procedure Performed/Findings EGD with CBD stent removal EGD with bx Colon with hot bx Anesthesia Type IV sedation by anesthesia Estimated Blood Loss Estimated blood loss (mL): scant Specimens/Packing Specimens Removed duodenal bx antral bx body of stomach bx GE jxn bx Cecal polyp transverse colon polyp descending colon polyp TASIA DE LA VEGA DO Feb 19, 2020 11:48
[2020-02-19 11:50] VITALS: BP 124/56
--- NOTE | 2020-02-19 11:50 | Endoscopy Discharge Instruct ---
Endo Procedure/Findings Findings 1.: Gastritis, Other Findings (Esophagitis) 2.: Hiatal Hernia 3.: Polyp 4.: Internal Hemorrhoids Discharge Instructions - Activity: You might feel a little sleepy until tomorrow. This is due to the medicine you received to relax you. Until tomorrow, you should: NOT drive a car, operate machinery or power tools. NOT drink any alcoholic beverages. NOT make any important decisions or sign importortant papers. Do not return to work until tomorrow, unless otherwise instructed. Resume previous activities tomorrow. Diet: Start by taking liquids. If you tolerate liquids, advance to solid food. 1.: Colonscopy in 5 years, EGD in 3 years Notify Physician - If you experience excessive bleeding, unusual abdominal pain, fever, or chest pain, contact your doctor immediately. TASIA DE LA VEGA DO Feb 19, 2020 11:49
[2020-02-19 12:12] VITALS: BP 127/65
--- NOTE | 2020-02-19 14:17 | Anesthesia-General Post-Op ---
MAC Patient Condition Mental Status/LOC: Same as Preop Cardiovascular: Satisfactory Nausea/Vomiting: Absent Respiratory: Satisfactory Pain: Controlled Complications: Absent Post Op Complications Complications None Follow Up Care/Instructions Patient Instructions None needed. Anesthesiology Discharge Order Discharge Order Patient was seen this morning after the procedure and he was doing well, no complaints, stable vital signs, no apparent adverse anesthesia problems. LAURA NUNEZ DO Feb 19, 2020 14:17
--- NOTE | 2020-02-20 05:01 | OPERATIVE REPORT ---
DATE OF SERVICE: PREOPERATIVE DIAGNOSES: Gastritis, severe abdominal pain, elevated CEA and CA 19-9 as well as screening colonoscopy. POSTOPERATIVE DIAGNOSES: 1. Common bile duct stent. 2. Gastritis. 3. Esophagitis. 4. Hiatal hernia. 5. Colon polyp. 6. Internal hemorrhoids. PROCEDURES: 1. EGD with removal of common bile duct stent. 2. EGD with biopsy. 3. Colonoscopy with hot biopsy. SURGEON: David Raines DO PILLOWCASE SEWER: None. ANESTHESIA: IV sedation by the anesthesiologist. SPECIMEN: Duodenal biopsy, biopsy of the antrum, biopsy stomach, biopsy GE junction as well as the CBD stent and a cecal polyp biopsy, transverse colon polyp biopsy and descending colon polyp biopsy. BLOOD LOSS: Scant. FLUIDS: Per anesthesia. POSTOPERATIVE CONDITION: Stable. INDICATION FOR PROCEDURE: The patient is a 60-year-old male, who has been having severe epigastric abdominal pain. He has noted he had a common bile duct stricture, but had a stent placed that he no longer and his GI doctor, who placed it, could be removed. In addition, he has had elevated CEA and CA 19-9, but the ultrasound of the pancreas and brushings are not failed to show any cancer. He has never had a colonoscopy and needs one. FINDINGS: The patient had a CBD duct stent seen and removed. He also had some gastritis, esophagitis and he had a hiatal hernia. In the colon, he had a cecal polyp, a transverse colon polyp and the descending colon polyp as well as some internal hemorrhoids. PROCEDURE NOTE: After informed consent was obtained, the patient was brought to the endoscopy suite, placed in bed in left lateral decubitus position. He was administered IV sedation by the anesthesiologist, who then monitored his vitals the entire time, heart rate, blood pressure and pulse ox and started with this EGD, placed the scope down the mouth through the esophagus and into the stomach and then pushed through into the duodenum, able to get into the duodenum and found the common bile duct stent placed a snare around down the EGD scope and then able to get it around the stent clamped down tight and then pulled out the stent can able to completely remove this. While getting a snare, got a small portion of the duodenum. This was sent for pathology as well as sending the stent for cytology for brushings. At this point, then placed the scope back down the mouth through the esophagus and stomach, pushed into the antrum, noted some gastritis, took a picture and then did a biopsy here and then pulled the scope, retroflexed the scope, saw hiatal hernia, took a picture and then did a biopsy of body of stomach, pulled the scope into the GE junction, noted some esophagitis and took another biopsy of the GE junction, then pushed the scope back into the stomach, suctioned out all the air and then pulled the scope up the esophagus and out the mouth. Switched camera, switched gloves, went down below and started the colonoscopy. Placed the scope in, pushed all the way to about 150 cm, able to get to the cecum, took a picture of appendiceal orifice, noted the ileocecal valve and then just outside the cecum, right next to the ileocecal valve, saw small polyp, I elected to do a hot biopsy of this completely removed it and then slowly withdrew the scope insufflating to look circumferentially at the moeller looking the cecum, up the ascending colon to the hepatic flexure, then down the transverse colon. In the transverse colon, saw another flat polyp, did a hot biopsy of this as well and then continued down to the splenic flexure, into the descending colon. In the descending colon, found another polyp, did another hot biopsy of this and then continued down the descending colon into the sigmoid and finally into the rectum, retroflexed in rectal vault, saw some minimal internal hemorrhoids, took a picture of this and then removed the scope. The patient tolerated the procedure, recovered in endoscopy suite. Job ID: [id number] DocumentID: [id number] Dictated Date: 02/19/2020 20:48:34 Retail Bakery Manager Date: 02/20/2020 05:01:03 Dictated By: DAVID RAINES DO
== END 2020-02-19 12:15 | disposition home or self-care (01) ==
LOC: ENDO 09:24
PROVIDERS: ATTEND Surgery
DX: Z12.11 Encounter for screening for malignant neoplasm of colon (principal); K63.5 Polyp of colon; K44.9 Diaphragmatic hernia without obstruction or gangrene; Z88.0 Allergy status to penicillin; Z96.89 Presence of other specified functional implants; K29.70 Gastritis, unspecified, without bleeding; K21.0 Gastro-esophageal reflux disease with esophagitis; K64.8 Other hemorrhoids; F41.9 Anxiety disorder, unspecified; E78.5 Hyperlipidemia, unspecified; E78.00 Pure hypercholesterolemia, unspecified; I25.10 Atherosclerotic heart disease of native coronary artery without angina pectoris; J44.9 Chronic obstructive pulmonary disease, unspecified; G47.33 Obstructive sleep apnea (adult) (pediatric); I10 Essential (primary) hypertension; F32.9 Major depressive disorder, single episode, unspecified; F17.210 Nicotine dependence, cigarettes, uncomplicated; E66.01 Morbid (severe) obesity due to excess calories; Z68.26 Body mass index [BMI] 26.0-26.9, adult; Z79.899 Other long term (current) drug therapy; Z79.82 Long term (current) use of aspirin; Z86.73 Personal history of transient ischemic attack (TIA), and cerebral infarction without residual deficits; Z80.9 Family history of malignant neoplasm, unspecified; Z82.3 Family history of stroke; Z80.51 Family history of malignant neoplasm of kidney
CPT/HCPCS: 36415; 82378; 86301; 88112; 88305

== ENCOUNTER → 2020-03-26 | Outpatient (CLI) | payer OTHER ==
[2020-03-26 14:48] LABS: BASOPHILS # (AUTO) 0.1 10^3/uL (0.0-0.1); BASOPHILS % (AUTO) 0 % (0-10); EOSINOPHILS # (AUTO) 0.3 10^3/uL (0.0-0.3); EOSINOPHILS % (AUTO) 2 % (0-10); HEMATOCRIT 42 % (40-54); HEMOGLOBIN 14.8 G/DL (13.3-17.7); LYMPHOCYTES # (AUTO) 1.7 X 10^3 (1.0-4.0); LYMPHOCYTES % (AUTO) 14 % (12-44); MEAN CORPUSCULAR HEMOGLOBIN 31 PG (25-34); MEAN CORPUSCULAR HGB CONC 35 G/DL (32-36); MEAN CORPUSCULAR VOLUME 88 FL (80-99); MEAN PLATELET VOLUME 9.5 FL (7.4-10.4); MONOCYTES % (AUTO) 8 % (0-12); NEUTROPHILS # (AUTO) 9.4 X 10^3 (1.8-7.8); NEUTROPHILS % (AUTO) 76 % (42-75); PLATELET COUNT 457 10^3/uL (130-400); RED CELL DISTRIBUTION WIDTH 15.6 % (10.0-14.5); WHITE BLOOD COUNT 12.4 10^3/uL (4.3-11.0)
[2020-03-26 15:09] LABS: ALANINE AMINOTRANSFERASE 124 U/L (0-55); ALKALINE PHOSPHATASE 355 U/L (40-136); BILIRUBIN,TOTAL 4.9 MG/DL (0.1-1.0); BUN/CREATININE RATIO 16; CALCIUM 10.6 MG/DL (8.5-10.1); CARBON DIOXIDE 18 MMOL/L (21-32); CHLORIDE 102 MMOL/L (98-107); CREATININE SERUM 1.04 MG/DL (0.60-1.30); GFR ESTIMATED > 60; GLUCOSE 154 MG/DL (70-105); MAGNESIUM 1.8 MG/DL (1.6-2.4); PHOSPHORUS 3.9 MG/DL (2.3-4.7); SODIUM 131 MMOL/L (135-145)
== END ==
LOC: LAB 14:27
PROVIDERS: ATTEND Surgery
DX: R63.4 Abnormal weight loss (principal)
CPT/HCPCS: 36415; 80053; 82306; 83540; 83735; 84100; 85025

== ENCOUNTER → 2020-06-04 | Outpatient (CLI) | payer OTHER ==
[~2020-06-04] MED LIST changes: +ALPR.25T PO; -ALPR0.254 PO; +ASPI-1238 PO; -ASPI-983 PO
== END ==
LOC: LABNPT 06:37
PROVIDERS: ATTEND Transplant Surgery
DX: Z11.59 Encounter for screening for other viral diseases (principal)

== ENCOUNTER → 2020-06-12 | Outpatient (CLI) | payer OTHER | LOC: LAB FS 10:00 | PROVIDERS: ATTEND Transplant Surgery | DX: Z01.812 Encounter for preprocedural laboratory examination (principal); Z20.828 Contact with and (suspected) exposure to other viral communicable diseases | CPT/HCPCS: 87635 ==

== ENCOUNTER → 2020-08-21 | Outpatient (CLI) | payer MEDICARE ==
[~2020-08-21] MED LIST changes: -CLIN150C17 PO; +CLIN150C18 PO; -ESCI20TA45 PO; +ESCI20TA56 PO
== END ==
LOC: WOUNDCARE 09:10
PROVIDERS: ATTEND Surgery
DX: I96 Gangrene, not elsewhere classified (principal); S31.102A Unspecified open wound of abdominal wall, epigastric region without penetration into peritoneal cavity, initial encounter; T81.31XA Disruption of external operation (surgical) wound, not elsewhere classified, initial encounter; C25.9 Malignant neoplasm of pancreas, unspecified; L92.8 Other granulomatous disorders of the skin and subcutaneous tissue
CPT/HCPCS: 17250; G0463

== ENCOUNTER → 2020-08-27 | Outpatient (CLI) | payer MEDICARE | LOC: WOUNDCARE 09:22 | PROVIDERS: ATTEND Orthopaedic Surgery Hand Surgery | DX: C25.9 Malignant neoplasm of pancreas, unspecified (principal); S31.102A Unspecified open wound of abdominal wall, epigastric region without penetration into peritoneal cavity, initial encounter; T81.31XA Disruption of external operation (surgical) wound, not elsewhere classified, initial encounter; I96 Gangrene, not elsewhere classified; L92.8 Other granulomatous disorders of the skin and subcutaneous tissue; Z72.0 Tobacco use | CPT/HCPCS: A6266; G0463; 99213 ==

== ENCOUNTER → 2020-09-02 | Outpatient (CLI) | payer MEDICARE | LOC: WOUNDCARE 10:25 | PROVIDERS: ATTEND Surgery | DX: S31.102A Unspecified open wound of abdominal wall, epigastric region without penetration into peritoneal cavity, initial encounter (principal); T81.31XA Disruption of external operation (surgical) wound, not elsewhere classified, initial encounter; L92.8 Other granulomatous disorders of the skin and subcutaneous tissue; C25.9 Malignant neoplasm of pancreas, unspecified | CPT/HCPCS: 17250 ==

== ENCOUNTER → 2020-09-12 | Outpatient (CLI) | payer MEDICARE, OTHER ==
[~2020-09-12] MED LIST changes: +ESCI20TA39 PO; -ESCI20TA56 PO; -LISI-552 PO; +LISI20TA26 PO
== END ==
LOC: WOUNDCARE 09:18
PROVIDERS: ATTEND Surgery
DX: K63.2 Fistula of intestine (principal); T81.41XA Infection following a procedure, superficial incisional surgical site, initial encounter; S31.102A Unspecified open wound of abdominal wall, epigastric region without penetration into peritoneal cavity, initial encounter; L92.8 Other granulomatous disorders of the skin and subcutaneous tissue; C25.9 Malignant neoplasm of pancreas, unspecified; I96 Gangrene, not elsewhere classified; Z72.0 Tobacco use
CPT/HCPCS: 99213

== ENCOUNTER → 2020-09-17 | Outpatient (CLI) | payer OTHER | LOC: WOUNDCARE 10:25 | PROVIDERS: ATTEND Surgery | DX: C25.9 Malignant neoplasm of pancreas, unspecified (principal); S31.109A Unspecified open wound of abdominal wall, unspecified quadrant without penetration into peritoneal cavity, initial encounter; I96 Gangrene, not elsewhere classified; K63.2 Fistula of intestine; T81.41XA Infection following a procedure, superficial incisional surgical site, initial encounter; Z72.0 Tobacco use | CPT/HCPCS: 99213 ==

== ENCOUNTER → 2020-09-26 | Outpatient (CLI) | payer OTHER | LOC: WOUNDCARE 10:37 | PROVIDERS: ATTEND Surgery | DX: C61 Malignant neoplasm of prostate (principal); K63.2 Fistula of intestine; I96 Gangrene, not elsewhere classified; T81.41XA Infection following a procedure, superficial incisional surgical site, initial encounter; S31.102A Unspecified open wound of abdominal wall, epigastric region without penetration into peritoneal cavity, initial encounter; Z72.0 Tobacco use | CPT/HCPCS: 99213 ==

== ENCOUNTER → 2020-10-01 | Outpatient (CLI) | payer OTHER | LOC: WOUNDCARE 11:30 | PROVIDERS: ATTEND Surgery | DX: C61 Malignant neoplasm of prostate (principal); L92.8 Other granulomatous disorders of the skin and subcutaneous tissue; I96 Gangrene, not elsewhere classified; S31.102A Unspecified open wound of abdominal wall, epigastric region without penetration into peritoneal cavity, initial encounter; T81.41XA Infection following a procedure, superficial incisional surgical site, initial encounter; Z72.0 Tobacco use | CPT/HCPCS: 17250 ==

== ENCOUNTER → 2020-10-10 | Outpatient (CLI) | payer OTHER | LOC: WOUNDCARE 10:26 | PROVIDERS: ATTEND Surgery | DX: C25.9 Malignant neoplasm of pancreas, unspecified (principal); L92.8 Other granulomatous disorders of the skin and subcutaneous tissue; I96 Gangrene, not elsewhere classified; S31.102A Unspecified open wound of abdominal wall, epigastric region without penetration into peritoneal cavity, initial encounter; T81.41XA Infection following a procedure, superficial incisional surgical site, initial encounter; Z72.0 Tobacco use | CPT/HCPCS: 11042 ==

== ENCOUNTER → 2020-10-15 | Outpatient (CLI) | payer OTHER | LOC: WOUNDCARE 14:56 | PROVIDERS: ATTEND Surgery | DX: C25.9 Malignant neoplasm of pancreas, unspecified (principal); I96 Gangrene, not elsewhere classified; L92.8 Other granulomatous disorders of the skin and subcutaneous tissue; S31.102A Unspecified open wound of abdominal wall, epigastric region without penetration into peritoneal cavity, initial encounter; T81.41XA Infection following a procedure, superficial incisional surgical site, initial encounter; Z72.0 Tobacco use | CPT/HCPCS: 99212 ==

== ENCOUNTER 2020-11-25 16:10 | Outpatient (RCR) | payer MEDICARE, OTHER ==
[2020-08-29 13:52] LABS: BASOPHILS # (AUTO) 0.1 10^3/uL (0.0-0.1); BASOPHILS % (AUTO) 1 % (0-10); EOSINOPHILS # (AUTO) 0.3 10^3/uL (0.0-0.3); EOSINOPHILS % (AUTO) 3 % (0-10); HEMATOCRIT 41 % (40-54); HEMOGLOBIN 13.8 g/dL (13.3-17.7); LYMPHOCYTES # (AUTO) 2.6 10^3/uL (1.0-4.0); LYMPHOCYTES % (AUTO) 30 % (12-44); MEAN CORPUSCULAR HEMOGLOBIN 31 pg (25-34); MEAN CORPUSCULAR HGB CONC 34 g/dL (32-36); MEAN CORPUSCULAR VOLUME 91 fL (80-99); MEAN PLATELET VOLUME 8.9 fL (9.0-12.2); MONOCYTES % (AUTO) 12 % (0-12); NEUTROPHILS # (AUTO) 4.9 10^3/uL (1.8-7.8); NEUTROPHILS % (AUTO) 55 % (42-75); PLATELET COUNT 356 10^3/uL (130-400); WHITE BLOOD COUNT 8.9 10^3/uL (4.3-11.0)
[2020-08-29 14:17] LABS: ALANINE AMINOTRANSFERASE 16 U/L (0-55); ALBUMIN 3.9 GM/DL (3.2-4.5); ALKALINE PHOSPHATASE 67 U/L (40-136); BILIRUBIN,TOTAL 0.2 MG/DL (0.1-1.0); BUN/CREATININE RATIO 10; CALCIUM 9.4 MG/DL (8.5-10.1); CARBON DIOXIDE 24 MMOL/L (21-32); CHLORIDE 104 MMOL/L (98-107); CREATININE SERUM 1.03 MG/DL (0.60-1.30); GFR ESTIMATED > 60; GLUCOSE 111 MG/DL (70-105); POTASSIUM 4.3 MMOL/L (3.6-5.0); SODIUM 139 MMOL/L (135-145); TOTAL PROTEIN 7.3 GM/DL (6.4-8.2)
[2020-09-10 11:14] LABS: BASOPHILS # (AUTO) 0.1 10^3/uL (0.0-0.1); BASOPHILS % (AUTO) 1 % (0-10); EOSINOPHILS # (AUTO) 0.3 10^3/uL (0.0-0.3); EOSINOPHILS % (AUTO) 4 % (0-10); HEMATOCRIT 43 % (40-54); HEMOGLOBIN 13.9 g/dL (13.3-17.7); LYMPHOCYTES # (AUTO) 2.5 10^3/uL (1.0-4.0); LYMPHOCYTES % (AUTO) 30 % (12-44); MEAN CORPUSCULAR HEMOGLOBIN 30 pg (25-34); MEAN CORPUSCULAR HGB CONC 33 g/dL (32-36); MEAN CORPUSCULAR VOLUME 93 fL (80-99); MONOCYTES # (AUTO) 0.9 10^3/uL (0.0-1.0); MONOCYTES % (AUTO) 12 % (0-12); NEUTROPHILS # (AUTO) 4.3 10^3/uL (1.8-7.8); NEUTROPHILS % (AUTO) 53 % (42-75); PLATELET COUNT 363 10^3/uL (130-400); WHITE BLOOD COUNT 8.1 10^3/uL (4.3-11.0)
[2020-09-10 11:38] LABS: ALANINE AMINOTRANSFERASE 14 U/L (0-55); ALBUMIN 3.8 GM/DL (3.2-4.5); ALKALINE PHOSPHATASE 64 U/L (40-136); BILIRUBIN,TOTAL 0.3 MG/DL (0.1-1.0); BUN/CREATININE RATIO 10; CALCIUM 9.8 MG/DL (8.5-10.1); CARBON DIOXIDE 23 MMOL/L (21-32); CHLORIDE 106 MMOL/L (98-107); CREATININE SERUM 0.91 MG/DL (0.60-1.30); GFR ESTIMATED > 60; GLUCOSE 97 MG/DL (70-105); MAGNESIUM 1.5 MG/DL (1.6-2.4); POTASSIUM 4.3 MMOL/L (3.6-5.0); SODIUM 138 MMOL/L (135-145); TOTAL PROTEIN 7.2 GM/DL (6.4-8.2)
[2020-09-17 12:01] LABS: BASOPHILS % (AUTO) 0 % (0-10); EOSINOPHILS # (AUTO) 0.2 10^3/uL (0.0-0.3); EOSINOPHILS % (AUTO) 2 % (0-10); HEMATOCRIT 40 % (40-54); HEMOGLOBIN 13.3 g/dL (13.3-17.7); LYMPHOCYTES # (AUTO) 1.5 10^3/uL (1.0-4.0); LYMPHOCYTES % (AUTO) 15 % (12-44); MEAN CORPUSCULAR HEMOGLOBIN 31 pg (25-34); MEAN CORPUSCULAR HGB CONC 33 g/dL (32-36); MEAN CORPUSCULAR VOLUME 92 fL (80-99); MEAN PLATELET VOLUME 9.2 fL (9.0-12.2); MONOCYTES # (AUTO) 0.5 10^3/uL (0.0-1.0); MONOCYTES % (AUTO) 6 % (0-12); NEUTROPHILS # (AUTO) 7.5 10^3/uL (1.8-7.8); NEUTROPHILS % (AUTO) 76 % (42-75); PLATELET COUNT 452 10^3/uL (130-400); WHITE BLOOD COUNT 9.8 10^3/uL (4.3-11.0)
[2020-09-17 12:28] LABS: BUN/CREATININE RATIO 21; CALCIUM 9.3 MG/DL (8.5-10.1); CARBON DIOXIDE 21 MMOL/L (21-32); CHLORIDE 100 MMOL/L (98-107); CREATININE SERUM 0.97 MG/DL (0.60-1.30); GFR ESTIMATED > 60; GLUCOSE 126 MG/DL (70-105); POTASSIUM 4.4 MMOL/L (3.6-5.0); SODIUM 134 MMOL/L (135-145)
[2020-09-24 09:21] LABS: BASOPHILS # (AUTO) 0.1 10^3/uL (0.0-0.1); BASOPHILS % (AUTO) 1 % (0-10); EOSINOPHILS # (AUTO) 0.2 10^3/uL (0.0-0.3); EOSINOPHILS % (AUTO) 4 % (0-10); HEMATOCRIT 36 % (40-54); HEMOGLOBIN 11.5 g/dL (13.3-17.7); LYMPHOCYTES % (AUTO) 33 % (12-44); MEAN CORPUSCULAR HEMOGLOBIN 30 pg (25-34); MEAN CORPUSCULAR HGB CONC 32 g/dL (32-36); MEAN CORPUSCULAR VOLUME 92 fL (80-99); MEAN PLATELET VOLUME 8.4 fL (9.0-12.2); MONOCYTES # (AUTO) 1.5 10^3/uL (0.0-1.0); MONOCYTES % (AUTO) 25 % (0-12); NEUTROPHILS # (AUTO) 2.3 10^3/uL (1.8-7.8); NEUTROPHILS % (AUTO) 37 % (42-75); PLATELET COUNT 367 10^3/uL (130-400)
[2020-09-24 09:50] LABS: ALANINE AMINOTRANSFERASE 13 U/L (0-55); ALBUMIN 3.2 GM/DL (3.2-4.5); ALKALINE PHOSPHATASE 54 U/L (40-136); BILIRUBIN,TOTAL 0.2 MG/DL (0.1-1.0); BUN/CREATININE RATIO 10; CALCIUM 8.8 MG/DL (8.5-10.1); CARBON DIOXIDE 20 MMOL/L (21-32); CHLORIDE 105 MMOL/L (98-107); CREATININE SERUM 0.88 MG/DL (0.60-1.30); GFR ESTIMATED > 60; GLUCOSE 170 MG/DL (70-105); MAGNESIUM 1.9 MG/DL (1.6-2.4); POTASSIUM 3.7 MMOL/L (3.6-5.0); SODIUM 136 MMOL/L (135-145); TOTAL PROTEIN 6.1 GM/DL (6.4-8.2)
[2020-10-01 11:27] LABS: BASOPHILS % (AUTO) 0 % (0-10); EOSINOPHILS # (AUTO) 0.2 10^3/uL (0.0-0.3); EOSINOPHILS % (AUTO) 1 % (0-10); HEMATOCRIT 36 % (40-54); LYMPHOCYTES # (AUTO) 1.3 10^3/uL (1.0-4.0); LYMPHOCYTES % (AUTO) 10 % (12-44); MEAN CORPUSCULAR HEMOGLOBIN 30 pg (25-34); MEAN CORPUSCULAR HGB CONC 33 g/dL (32-36); MEAN CORPUSCULAR VOLUME 89 fL (80-99); MEAN PLATELET VOLUME 8.4 fL (9.0-12.2); MONOCYTES # (AUTO) 0.3 10^3/uL (0.0-1.0); MONOCYTES % (AUTO) 3 % (0-12); NEUTROPHILS # (AUTO) 10.6 10^3/uL (1.8-7.8); NEUTROPHILS % (AUTO) 84 % (42-75); PLATELET COUNT 332 10^3/uL (130-400); WHITE BLOOD COUNT 12.5 10^3/uL (4.3-11.0)
[2020-10-01 11:45] LABS: BUN/CREATININE RATIO 16; CALCIUM 8.9 MG/DL (8.5-10.1); CARBON DIOXIDE 23 MMOL/L (21-32); CHLORIDE 99 MMOL/L (98-107); CREATININE SERUM 0.95 MG/DL (0.60-1.30); GFR ESTIMATED > 60; GLUCOSE 123 MG/DL (70-105); POTASSIUM 4.1 MMOL/L (3.6-5.0); SODIUM 132 MMOL/L (135-145)
[2020-10-08 10:29] LABS: BASOPHILS # (AUTO) 0.1 10^3/uL (0.0-0.1); BASOPHILS % (AUTO) 1 % (0-10); EOSINOPHILS # (AUTO) 0.2 10^3/uL (0.0-0.3); EOSINOPHILS % (AUTO) 4 % (0-10); HEMATOCRIT 35 % (40-54); HEMOGLOBIN 11.3 g/dL (13.3-17.7); LYMPHOCYTES # (AUTO) 2.2 10^3/uL (1.0-4.0); LYMPHOCYTES % (AUTO) 44 % (12-44); MEAN CORPUSCULAR HEMOGLOBIN 30 pg (25-34); MEAN CORPUSCULAR HGB CONC 33 g/dL (32-36); MEAN CORPUSCULAR VOLUME 90 fL (80-99); MEAN PLATELET VOLUME 8.5 fL (9.0-12.2); MONOCYTES # (AUTO) 0.7 10^3/uL (0.0-1.0); MONOCYTES % (AUTO) 14 % (0-12); NEUTROPHILS # (AUTO) 1.8 10^3/uL (1.8-7.8); NEUTROPHILS % (AUTO) 36 % (42-75); PLATELET COUNT 371 10^3/uL (130-400); WHITE BLOOD COUNT 4.9 10^3/uL (4.3-11.0)
[2020-10-08 10:49] LABS: ALANINE AMINOTRANSFERASE 19 U/L (0-55); ALBUMIN 3.1 GM/DL (3.2-4.5); ALKALINE PHOSPHATASE 54 U/L (40-136); BILIRUBIN,TOTAL 0.2 MG/DL (0.1-1.0); BUN/CREATININE RATIO 10; CALCIUM 8.4 MG/DL (8.5-10.1); CARBON DIOXIDE 23 MMOL/L (21-32); CHLORIDE 107 MMOL/L (98-107); CREATININE SERUM 0.83 MG/DL (0.60-1.30); GFR ESTIMATED > 60; GLUCOSE 129 MG/DL (70-105); POTASSIUM 3.7 MMOL/L (3.6-5.0); SODIUM 138 MMOL/L (135-145); TOTAL PROTEIN 5.5 GM/DL (6.4-8.2)
[2020-10-15 14:58] LABS: BASOPHILS % (AUTO) 0 % (0-10); EOSINOPHILS % (AUTO) 0 % (0-10); HEMATOCRIT 37 % (40-54); HEMOGLOBIN 12.2 g/dL (13.3-17.7); LYMPHOCYTES # (AUTO) 1.5 10^3/uL (1.0-4.0); LYMPHOCYTES % (AUTO) 12 % (12-44); MEAN CORPUSCULAR HEMOGLOBIN 30 pg (25-34); MEAN CORPUSCULAR HGB CONC 33 g/dL (32-36); MEAN CORPUSCULAR VOLUME 90 fL (80-99); MEAN PLATELET VOLUME 8.6 fL (9.0-12.2); MONOCYTES # (AUTO) 0.3 10^3/uL (0.0-1.0); MONOCYTES % (AUTO) 2 % (0-12); NEUTROPHILS # (AUTO) 10.4 10^3/uL (1.8-7.8); NEUTROPHILS % (AUTO) 84 % (42-75); PLATELET COUNT 383 10^3/uL (130-400); WHITE BLOOD COUNT 12.4 10^3/uL (4.3-11.0)
[2020-10-15 15:17] LABS: BUN/CREATININE RATIO 16; CALCIUM 8.7 MG/DL (8.5-10.1); CARBON DIOXIDE 22 MMOL/L (21-32); CHLORIDE 99 MMOL/L (98-107); GFR ESTIMATED > 60; GLUCOSE 152 MG/DL (70-105); POTASSIUM 4.5 MMOL/L (3.6-5.0); SODIUM 134 MMOL/L (135-145)
[2020-10-22 10:49] LABS: BASOPHILS # (AUTO) 0.1 10^3/uL (0.0-0.1); BASOPHILS % (AUTO) 1 % (0-10); EOSINOPHILS # (AUTO) 0.1 10^3/uL (0.0-0.3); EOSINOPHILS % (AUTO) 2 % (0-10); HEMATOCRIT 38 % (40-54); HEMOGLOBIN 12.3 g/dL (13.3-17.7); LYMPHOCYTES # (AUTO) 1.8 10^3/uL (1.0-4.0); LYMPHOCYTES % (AUTO) 31 % (12-44); MEAN CORPUSCULAR HEMOGLOBIN 29 pg (25-34); MEAN CORPUSCULAR HGB CONC 33 g/dL (32-36); MEAN CORPUSCULAR VOLUME 90 fL (80-99); MEAN PLATELET VOLUME 8.5 fL (9.0-12.2); MONOCYTES # (AUTO) 0.9 10^3/uL (0.0-1.0); MONOCYTES % (AUTO) 15 % (0-12); NEUTROPHILS # (AUTO) 3.1 10^3/uL (1.8-7.8); NEUTROPHILS % (AUTO) 51 % (42-75); PLATELET COUNT 419 10^3/uL (130-400)
[2020-10-22 11:08] LABS: ALANINE AMINOTRANSFERASE 17 U/L (0-55); ALBUMIN 3.3 GM/DL (3.2-4.5); ALKALINE PHOSPHATASE 63 U/L (40-136); BILIRUBIN,TOTAL 0.2 MG/DL (0.1-1.0); BUN/CREATININE RATIO 8; CALCIUM 8.5 MG/DL (8.5-10.1); CARBON DIOXIDE 22 MMOL/L (21-32); CHLORIDE 105 MMOL/L (98-107); CREATININE SERUM 0.78 MG/DL (0.60-1.30); GFR ESTIMATED > 60; GLUCOSE 178 MG/DL (70-105); MAGNESIUM 2.1 MG/DL (1.6-2.4); SODIUM 137 MMOL/L (135-145); TOTAL PROTEIN 5.8 GM/DL (6.4-8.2)
[2020-10-29 13:51] LABS: BASOPHILS # (AUTO) 0.1 10^3/uL (0.0-0.1); BASOPHILS % (AUTO) 1 % (0-10); EOSINOPHILS # (AUTO) 0.2 10^3/uL (0.0-0.3); EOSINOPHILS % (AUTO) 3 % (0-10); HEMATOCRIT 37 % (40-54); HEMOGLOBIN 12.2 g/dL (13.3-17.7); LYMPHOCYTES # (AUTO) 3.3 10^3/uL (1.0-4.0); LYMPHOCYTES % (AUTO) 38 % (12-44); MEAN CORPUSCULAR HEMOGLOBIN 30 pg (25-34); MEAN CORPUSCULAR HGB CONC 33 g/dL (32-36); MEAN CORPUSCULAR VOLUME 91 fL (80-99); MEAN PLATELET VOLUME 8.7 fL (9.0-12.2); MONOCYTES # (AUTO) 0.4 10^3/uL (0.0-1.0); MONOCYTES % (AUTO) 5 % (0-12); NEUTROPHILS # (AUTO) 4.7 10^3/uL (1.8-7.8); NEUTROPHILS % (AUTO) 54 % (42-75); PLATELET COUNT 321 10^3/uL (130-400); WHITE BLOOD COUNT 8.7 10^3/uL (4.3-11.0)
[2020-10-29 14:09] LABS: BUN/CREATININE RATIO 15; CALCIUM 8.6 MG/DL (8.5-10.1); CARBON DIOXIDE 22 MMOL/L (21-32); CHLORIDE 102 MMOL/L (98-107); CREATININE SERUM 0.95 MG/DL (0.60-1.30); GFR ESTIMATED > 60; GLUCOSE 115 MG/DL (70-105); POTASSIUM 4.1 MMOL/L (3.6-5.0); SODIUM 136 MMOL/L (135-145)
[2020-11-06 10:52] LABS: BASOPHILS # (AUTO) 0.1 10^3/uL (0.0-0.1); BASOPHILS % (AUTO) 1 % (0-10); EOSINOPHILS # (AUTO) 0.2 10^3/uL (0.0-0.3); EOSINOPHILS % (AUTO) 3 % (0-10); HEMATOCRIT 37 % (40-54); HEMOGLOBIN 11.9 g/dL (13.3-17.7); LYMPHOCYTES # (AUTO) 2.4 10^3/uL (1.0-4.0); LYMPHOCYTES % (AUTO) 40 % (12-44); MEAN CORPUSCULAR HEMOGLOBIN 29 pg (25-34); MEAN CORPUSCULAR HGB CONC 33 g/dL (32-36); MEAN CORPUSCULAR VOLUME 90 fL (80-99); MONOCYTES # (AUTO) 0.7 10^3/uL (0.0-1.0); MONOCYTES % (AUTO) 12 % (0-12); NEUTROPHILS # (AUTO) 2.6 10^3/uL (1.8-7.8); NEUTROPHILS % (AUTO) 43 % (42-75); PLATELET COUNT 311 10^3/uL (130-400); WHITE BLOOD COUNT 5.9 10^3/uL (4.3-11.0)
[2020-11-06 11:13] LABS: ALANINE AMINOTRANSFERASE 18 U/L (0-55); ALBUMIN 3.4 GM/DL (3.2-4.5); ALKALINE PHOSPHATASE 71 U/L (40-136); BILIRUBIN,TOTAL 0.2 MG/DL (0.1-1.0); BUN/CREATININE RATIO 11; CARBON DIOXIDE 19 MMOL/L (21-32); CHLORIDE 107 MMOL/L (98-107); CREATININE SERUM 0.91 MG/DL (0.60-1.30); GFR ESTIMATED > 60; GLUCOSE 123 MG/DL (70-105); MAGNESIUM 1.7 MG/DL (1.6-2.4); POTASSIUM 3.8 MMOL/L (3.6-5.0); SODIUM 139 MMOL/L (135-145); TOTAL PROTEIN 6.1 GM/DL (6.4-8.2)
[2020-11-12 14:26] LABS: EOSINOPHILS # (AUTO) 0.1 10^3/uL (0.0-0.3); HEMOGLOBIN 13.5 g/dL (13.3-17.7)
[2020-11-12 14:28] LABS: BASOPHILS % (AUTO) 0 % (0-10); EOSINOPHILS % (AUTO) 1 % (0-10); HEMATOCRIT 42 % (40-54); LYMPHOCYTES # (AUTO) 1.1 10^3/uL (1.0-4.0); LYMPHOCYTES % (AUTO) 14 % (12-44); MEAN CORPUSCULAR HEMOGLOBIN 29 pg (25-34); MEAN CORPUSCULAR HGB CONC 32 g/dL (32-36); MEAN CORPUSCULAR VOLUME 91 fL (80-99); MONOCYTES # (AUTO) 0.2 10^3/uL (0.0-1.0); MONOCYTES % (AUTO) 2 % (0-12); NEUTROPHILS # (AUTO) 6.3 10^3/uL (1.8-7.8); NEUTROPHILS % (AUTO) 82 % (42-75); PLATELET COUNT 304 10^3/uL (130-400); WHITE BLOOD COUNT 7.6 10^3/uL (4.3-11.0)
[2020-11-12 14:51] LABS: BUN/CREATININE RATIO 18; CALCIUM 9.3 MG/DL (8.5-10.1); CARBON DIOXIDE 18 MMOL/L (21-32); CHLORIDE 102 MMOL/L (98-107); CREATININE SERUM 0.96 MG/DL (0.60-1.30); GFR ESTIMATED > 60; GLUCOSE 157 MG/DL (70-105); POTASSIUM 4.4 MMOL/L (3.6-5.0); SODIUM 132 MMOL/L (135-145)
[2020-11-19 09:36] LABS: BASOPHILS # (AUTO) 0.1 10^3/uL (0.0-0.1); BASOPHILS % (AUTO) 1 % (0-10); EOSINOPHILS # (AUTO) 0.1 10^3/uL (0.0-0.3); EOSINOPHILS % (AUTO) 2 % (0-10); HEMATOCRIT 34 % (40-54); LYMPHOCYTES # (AUTO) 2.5 10^3/uL (1.0-4.0); LYMPHOCYTES % (AUTO) 35 % (12-44); MEAN CORPUSCULAR HEMOGLOBIN 29 pg (25-34); MEAN CORPUSCULAR HGB CONC 32 g/dL (32-36); MEAN CORPUSCULAR VOLUME 89 fL (80-99); MEAN PLATELET VOLUME 8.7 fL (9.0-12.2); MONOCYTES # (AUTO) 1.1 10^3/uL (0.0-1.0); MONOCYTES % (AUTO) 15 % (0-12); NEUTROPHILS # (AUTO) 3.3 10^3/uL (1.8-7.8); NEUTROPHILS % (AUTO) 47 % (42-75); PLATELET COUNT 277 10^3/uL (130-400); WHITE BLOOD COUNT 7.1 10^3/uL (4.3-11.0)
[2020-11-19 10:11] LABS: ALANINE AMINOTRANSFERASE 20 U/L (0-55); ALBUMIN 3.3 GM/DL (3.2-4.5); ALKALINE PHOSPHATASE 58 U/L (40-136); BILIRUBIN,TOTAL 0.1 MG/DL (0.1-1.0); BUN/CREATININE RATIO 13; CALCIUM 8.9 MG/DL (8.5-10.1); CARBON DIOXIDE 17 MMOL/L (21-32); CHLORIDE 106 MMOL/L (98-107); CREATININE SERUM 0.77 MG/DL (0.60-1.30); GFR ESTIMATED > 60; GLUCOSE 102 MG/DL (70-105); MAGNESIUM 1.7 MG/DL (1.6-2.4); POTASSIUM 3.5 MMOL/L (3.6-5.0); SODIUM 136 MMOL/L (135-145); TOTAL PROTEIN 5.9 GM/DL (6.4-8.2)
[~2020-11-25] VITALS: Ht 170.2 cm; Wt 65.3 kg
[~2020-11-25 16:10] MED LIST changes: +ATROPINE INJ 0.4 MG/ML SDV (CANCER CENTER) IV SCH; +D5W 500 ML IV (CANCER CTR) 500 ML IV SCH; +D5W IV SCH; +FOSAPREPITANT (CANCER CENTER) 150 MG in NS (IVPB) CANCER CENTER ONLY 150 ML IV SCH; +IRINOTECAN HCL 200 MG, IRINOTECAN HCL 50 MG in D5W 250 ML IVPB (CANCER CTR) 250 ML IV SCH; +IRINOTECAN HCL IV SCH; +LEUCOVORIN CALCIUM 700 MG in D5W 250 ML IVPB (CANCER CTR) 250 ML IV SCH; +MAGNESIUM SULFATE (CANCER CTR) 2 GM in D5W 50 ML IV(CANCER CTR) 50 ML IV SCH; +MAGNESIUM SULFATE (CANCER CTR) 2 GM in NS (IVPB) CANCER CENTER 100 ML IV ONE; +MAGNESIUM SULFATE (CANCER CTR) 2 GM in NS (IVPB) CANCER CENTER 50 ML IV SCH; +OXALIPLATIN 100 MG, OXALIPLATIN (GENERIC) 50 MG in D5W 250 ML IVPB (CANCER CTR) 250 ML IV SCH; +diphenhydrAMINE 50 MG/ML INJ (CANCER CENTER) IV ONE; +diphenhydrAMINE 50 MG/ML INJ (CANCER CENTER) ONE; +methylPREDNISolone 125 MG/2 ML (SOLU-MEDROL) CANCER CTR IV ONE; +methylPREDNISolone 125 MG/2 ML (SOLU-MEDROL) CANCER CTR ONE
[2020-11-25] MEDS ORDERED: NS IV 1000 ML (CANCER CTR) 1,000 ML ONE (16:13)
[2020-11-25 16:25] LABS: BASOPHILS % (AUTO) 0 % (0-10); EOSINOPHILS # (AUTO) 0.1 10^3/uL (0.0-0.3); EOSINOPHILS % (AUTO) 1 % (0-10); HEMATOCRIT 37 % (40-54); HEMOGLOBIN 12.2 g/dL (13.3-17.7); LYMPHOCYTES # (AUTO) 3.7 10^3/uL (1.0-4.0); LYMPHOCYTES % (AUTO) 45 % (12-44); MEAN CORPUSCULAR HEMOGLOBIN 29 pg (25-34); MEAN CORPUSCULAR HGB CONC 33 g/dL (32-36); MEAN CORPUSCULAR VOLUME 88 fL (80-99); MEAN PLATELET VOLUME 8.5 fL (9.0-12.2); MONOCYTES # (AUTO) 0.2 10^3/uL (0.0-1.0); MONOCYTES % (AUTO) 3 % (0-12); NEUTROPHILS # (AUTO) 4.1 10^3/uL (1.8-7.8); NEUTROPHILS % (AUTO) 50 % (42-75); PLATELET COUNT 291 10^3/uL (130-400); WHITE BLOOD COUNT 8.1 10^3/uL (4.3-11.0)
[2020-11-25 16:48] LABS: BUN/CREATININE RATIO 18; CALCIUM 9.2 MG/DL (8.5-10.1); CARBON DIOXIDE 21 MMOL/L (21-32); CHLORIDE 103 MMOL/L (98-107); CREATININE SERUM 0.88 MG/DL (0.60-1.30); GFR ESTIMATED > 60; GLUCOSE 141 MG/DL (70-105); POTASSIUM 3.8 MMOL/L (3.6-5.0); SODIUM 136 MMOL/L (135-145)
== END 2020-11-27 | disposition home or self-care (01) ==
LOC: ONC 16:10
PROVIDERS: ATTEND Internal Medicine Hematology & Oncology
DX: C25.0 Malignant neoplasm of head of pancreas (principal); I10 Essential (primary) hypertension; K21.9 Gastro-esophageal reflux disease without esophagitis; E78.00 Pure hypercholesterolemia, unspecified; E78.5 Hyperlipidemia, unspecified; E66.01 Morbid (severe) obesity due to excess calories; Z92.21 Personal history of antineoplastic chemotherapy; Z98.890 Other specified postprocedural states
CPT/HCPCS: 36591; 80048; 80053; 82378; 83735; 85025; 86301; 96360; 96367; 96368; 96375; 96413; 96416; 96417; 99214

== ENCOUNTER 2020-12-22 19:32 | Emergency (ER) | payer OTHER ==
[~2020-12-22] VITALS: Ht 170.1 cm; Wt 54.4 kg
[~2020-12-22 19:32] MED LIST changes: -ATROPINE INJ 0.4 MG/ML SDV (CANCER CENTER) IV SCH; -D5W 500 ML IV (CANCER CTR) 500 ML IV SCH; -D5W IV SCH; -FOSAPREPITANT (CANCER CENTER) 150 MG in NS (IVPB) CANCER CENTER ONLY 150 ML IV SCH; -IRINOTECAN HCL 200 MG, IRINOTECAN HCL 50 MG in D5W 250 ML IVPB (CANCER CTR) 250 ML IV SCH; -IRINOTECAN HCL IV SCH; -LEUCOVORIN CALCIUM 700 MG in D5W 250 ML IVPB (CANCER CTR) 250 ML IV SCH; -MAGNESIUM SULFATE (CANCER CTR) 2 GM in D5W 50 ML IV(CANCER CTR) 50 ML IV SCH; -MAGNESIUM SULFATE (CANCER CTR) 2 GM in NS (IVPB) CANCER CENTER 100 ML IV ONE; -MAGNESIUM SULFATE (CANCER CTR) 2 GM in NS (IVPB) CANCER CENTER 50 ML IV SCH; -OXALIPLATIN 100 MG, OXALIPLATIN (GENERIC) 50 MG in D5W 250 ML IVPB (CANCER CTR) 250 ML IV SCH; -diphenhydrAMINE 50 MG/ML INJ (CANCER CENTER) IV ONE; -diphenhydrAMINE 50 MG/ML INJ (CANCER CENTER) ONE; -methylPREDNISolone 125 MG/2 ML (SOLU-MEDROL) CANCER CTR IV ONE; -methylPREDNISolone 125 MG/2 ML (SOLU-MEDROL) CANCER CTR ONE
[2020-12-22 19:42] VITALS: BP 102/62
[2020-12-22 20:14] LABS: BASOPHILS % (AUTO) 0 % (0-10); EOSINOPHILS % (AUTO) 0 % (0-10); HEMATOCRIT 29 % (40-54); HEMOGLOBIN 9.6 g/dL (13.3-17.7); LYMPHOCYTES # (AUTO) 1.5 10^3/uL (1.0-4.0); LYMPHOCYTES % (AUTO) 15 % (12-44); MEAN CORPUSCULAR HEMOGLOBIN 28 pg (25-34); MEAN CORPUSCULAR HGB CONC 33 g/dL (32-36); MEAN CORPUSCULAR VOLUME 83 fL (80-99); MEAN PLATELET VOLUME 8.7 fL (9.0-12.2); MONOCYTES # (AUTO) 0.3 10^3/uL (0.0-1.0); MONOCYTES % (AUTO) 3 % (0-12); NEUTROPHILS # (AUTO) 7.4 10^3/uL (1.8-7.8); NEUTROPHILS % (AUTO) 76 % (42-75); PLATELET COUNT 234 10^3/uL (130-400); WHITE BLOOD COUNT 9.7 10^3/uL (4.3-11.0)
[2020-12-22] MEDS ORDERED: HYDROmorphone 2 MG/ML VIAL (DILAUDID) IV ONE (20:15)
[2020-12-22] MEDS ORDERED: NS IV 1000 ML 1,000 ML IV SCH (20:15)
[2020-12-22] MEDS ORDERED: KETOROLAC 30 MG/ML VIAL IVP ONE (20:15)
[2020-12-22] MEDS ORDERED: ONDANSETRON 4 MG/2 ML (SDV) Z0FRAN IVP ONE (20:15)
[2020-12-22] MEDS ORDERED: fentaNYL INJ 100 MCG/2 ML AMP IVP ONE ×2 (20:15→22:00)
--- NOTE | 2020-12-22 20:25 | ED Abdominal Pain ---
General Chief Complaint: Abdominal/GI Problems Stated Complaint: ABD PAIN Source of Information: Patient Exam Limitations: No Limitations History of Present Illness Date Seen by Provider: December 22, 2020 Time Seen by Provider: 20:23 Initial Comments To ER by private vehicle with reports of epigastric abdominal pain nausea and diarrhea. He is not passing much gas today. He has a history of Whipple procedure in 2019 in June for pancreatic cancer. He took his morning dose of morphine today and vomited after breakfast. He is not had his evening dose yet. He reports nausea vomiting and bad epigastric abdominal pain. No fevers. Timing/Duration: 1-2 Days Severity/Quality: Moderate Location: Epigastric Radiation: No Radiation Activities at Onset: None Allergies and Home Medications Allergies Coded Allergies: Penicillins (Unverified Allergy, Intermediate, hives, 01/09/20) hydromorphone (Verified Allergy, Mild, 12/22/20) Home Medications ALPRAZolam 0.25 Mg Tablet, 0.25 MG PO BID PRN for ANXIETY, (Reported) Escitalopram Oxalate 20 Mg Tablet, 20 MG PO DAILY, (Reported) Lisinopril 20 Mg Tablet, 10 MG PO DAILY, (Reported) TAKES OF A 20MG Metoprolol Tartrate 100 Mg Tablet, 50 MG PO BID, (Reported) TAKES OF A 100MG TAB TWICE DAILY [place] 3 Polyunsat Fatty Acids 1,000 Mg Cap, 1,000 MG PO BID, (Reported) Omeprazole 20 Mg Capsule.dr, 20 MG PO DAILY, (Reported) Trazodone HCl 50 Mg Tablet, 50-150 MG PO HS PRN for SLEEP, (Reported) TAKES 1 TO 3 (50MG) TABS Patient Home Medication List Home Medication List Reviewed: Yes Review of Systems Review of Systems Constitutional: see HPI EENTM: No Symptoms Reported Respiratory: No Symptoms Reported Cardiovascular: No Symptoms Reported Gastrointestinal: See HPI, Abdominal Pain, Nausea Musculoskeletal: no symptoms reported Skin: no symptoms reported Psychiatric/Neurological: No Symptoms Reported Endocrine: No Symptoms Reported Hematologic/Lymphatic: No Symptoms Reported Past Ctvzbzd-Weqijw-Cpvmzt Hx Patient Social History Alcohol Beverage of Choice: Beer Type Used: Cigarettes 2nd Hand Smoke Exposure: Yes Recent Hopitalizations: Yes (NOVEMBER-2019 ) Immunizations Up To Date Tetanus Booster (TDap): Unknown PED Vaccines UTD: No Seasonal Allergies Seasonal Allergies: Yes Past Medical History Surgeries: Yes (HERNIA REPAIR, STENT IN LEGS) Appendectomy, Gallbladder Respiratory: Yes Sleep Apnea, COPD Currently Using CPAP: No (DOESN'T USE CPAP) Cardiac: Yes High Cholesterol, Hypertension Neurological: Yes Stroke Sexually Transmitted Disease: No HIV/AIDS: No Genitourinary: No Gastrointestinal: Yes Gastroesophageal Reflux Musculoskeletal: Yes Chronic Back Pain Endocrine: No HEENT: Yes (READING GLASSES, TOP DENTURE) Loss of Vision: Denies Hearing Impairment: Denies Cancer: No Psychosocial: Yes Anxiety, Depression Integumentary: No Blood Disorders: No Adverse Reaction/Blood Tranf: No (N/A) Family Medical History Cancer, Stroke Physical Exam Vital Signs Capillary Refill : Height/Weight/BMI Height: 5'7.00" Weight: 185lbs. 0.0oz. [id number]; 22.00 BMI Method:Stated General Appearance: WD/WN, no apparent distress HEENT: PERRL/EOMI, normal ENT inspection Respiratory: no respiratory distress, no accessory muscle use Cardiovascular: regular rate, rhythm, no murmur Gastrointestinal: normal bowel sounds, soft, abnormal bowel sounds (hypoactive but present), tenderness Neurologic/Psychiatric: alert, normal mood/affect, oriented x 3 Skin: normal color, warm/dry Progress/Results/Core Measures Results/Orders Lab Results Laboratory Tests Test 12/22/20 20:00 Range/Units White Blood Count 9.7 4.3-11.0 10^3/uL Red Blood Count 3.44 L 4.30-5.52 10^6/uL Hemoglobin 9.6 L 13.3-17.7 g/dL Hematocrit 29 L 40-54 % Mean Corpuscular Volume 83 80-99 fL Mean Corpuscular Hemoglobin 28 25-34 pg Mean Corpuscular Hemoglobin Concent 33 32-36 g/dL Red Cell Distribution Width 17.6 H 10.0-14.5 % Platelet Count 234 130-400 10^3/uL Mean Platelet Volume 8.7 L 9.0-12.2 fL Immature Granulocyte % (Auto) 5 % Neutrophils (%) (Auto) 76 H 42-75 % Lymphocytes (%) (Auto) 15 12-44 % Monocytes (%) (Auto) 3 0-12 % Eosinophils (%) (Auto) 0 0-10 % Basophils (%) (Auto) 0 0-10 % Neutrophils # (Auto) 7.4 1.8-7.8 10^3/uL Lymphocytes # (Auto) 1.5 1.0-4.0 10^3/uL Monocytes # (Auto) 0.3 0.0-1.0 10^3/uL Eosinophils # (Auto) 0.0 0.0-0.3 10^3/uL Basophils # (Auto) 0.0 0.0-0.1 10^3/uL Immature Granulocyte # (Auto) 0.5 H 0.0-0.1 10^3/uL Sodium Level 132 L 135-145 MMOL/L Potassium Level 3.7 3.6-5.0 MMOL/L Chloride Level 100 98-107 MMOL/L Carbon Dioxide Level 21 21-32 MMOL/L Anion Gap 11 5-14 MMOL/L Blood Urea Nitrogen 14 7-18 MG/DL Creatinine 0.83 0.60-1.30 MG/DL Estimat Glomerular Filtration Rate > 60 BUN/Creatinine Ratio 17 Glucose Level 164 H 70-105 MG/DL Calcium Level 8.8 8.5-10.1 MG/DL Corrected Calcium 9.4 8.5-10.1 MG/DL Total Bilirubin 0.2 0.1-1.0 MG/DL Aspartate Amino Transf (AST/SGOT) 46 H 5-34 U/L Alanine Aminotransferase (ALT/SGPT) 59 H 0-55 U/L Alkaline Phosphatase 262 H 40-136 U/L Total Protein 6.0 L 6.4-8.2 GM/DL Albumin 3.2 3.2-4.5 GM/DL Lipase 38 8-78 U/L My Orders Orders - PARAMJIT HAYWOOD WREATH INSPECTOR Cbc With Automated Diff (12/22/20 20:09) Comprehensive Metabolic Panel (12/22/20 20:09) Lipase (12/22/20 20:09) Ed Iv/Invasive Line Start (12/22/20 20:09) Ct Abdomen/Pelvis W (12/22/20 20:09) Ns Iv 1000 Ml (Sodium Chloride 0.9%) (12/22/20 20:15) Ondansetron Injection (Zofran Injectio (12/22/20 20:15) Hydromorphone Injection (Dilaudid Inject (12/22/20 20:15) Ketorolac Injection (Toradol Injection) (12/22/20 20:15) Fentanyl Inj (Sublimaze Injection) (12/22/20 20:15) Iohexol Injection (Omnipaque 350 Mg/Ml 1 (12/22/20 21:00) Received Contrast (Hold Metformin- Contr (12/22/20 21:00) Ns (Ivpb) (Sodium Chloride 0.9% Ivpb Bag (12/22/20 21:00) Medications Given in ED Current Medications Medications Dose Ordered Sig/Boyd Route Start Time Stop Time Status Last Admin Dose Admin Fentanyl Citrate 75 mcg ONCE ONCE IVP 12/22/20 20:15 12/22/20 20:16 DC 12/22/20 20:26 75 MCG Iohexol 100 ml ONCE ONCE IV 12/22/20 21:00 12/22/20 21:01 DC 12/22/20 20:55 68 ML Ketorolac Tromethamine 15 mg ONCE ONCE IVP 12/22/20 20:15 12/22/20 20:16 DC 12/22/20 20:26 15 MG Ondansetron HCl 8 mg ONCE ONCE IVP 12/22/20 20:15 12/22/20 20:16 DC 12/22/20 20:18 8 MG Sodium Chloride 100 ml ONCE ONCE IV 12/22/20 21:00 12/22/20 21:01 DC 12/22/20 20:55 80 ML Departure Communication (Admissions) 2150-patient is feeling better. Nausea is controlled, no vomiting here, pain is better controlled. There is some distention of the proximal small bowel though there is no obvious obstruction at this point. Patient is not vomiting and is feeling better. Let him go home but I did speak with the patient and his about the possibility of a developing bowel obstruction and the need to return for worsening pain cramping or vomiting. He sees Dr. Elias tomorrow for follow-up and a PET scan. This will address the questionable liver lesion on CT as well as the elevated liver function tests. I spoke with Dr. Elias and he agrees with patient going home as long as he is feeling better. Impression Primary Impression: Pancreatic cancer Additional Impression: Abdominal pain Disposition: HOME, SELF-CARE Condition: Improved Departure-Patient Inst. Decision time for Depature: 21:51 Referrals: [facility] (PCP/Family) Primary Care Physician Patient Instructions: Nausea and Vomiting, Adult (DC) Add. Discharge Instructions: 1. Return to ER for any concerns or worsening symptoms. Keep your appointment with Dr. Elias tomorrow. All discharge instructions reviewed with patient and/or family. Voiced understanding. PARAMJIT HAYWOOD APRN December 22, 2020 20:25
[2020-12-22 20:27] LABS: ALANINE AMINOTRANSFERASE 59 U/L (0-55); ALBUMIN 3.2 GM/DL (3.2-4.5); ALKALINE PHOSPHATASE 262 U/L (40-136); BILIRUBIN,TOTAL 0.2 MG/DL (0.1-1.0); BUN/CREATININE RATIO 17; CALCIUM 8.8 MG/DL (8.5-10.1); CARBON DIOXIDE 21 MMOL/L (21-32); CHLORIDE 100 MMOL/L (98-107); CREATININE SERUM 0.83 MG/DL (0.60-1.30); GFR ESTIMATED > 60; GLUCOSE 164 MG/DL (70-105); LIPASE 38 U/L (8-78); POTASSIUM 3.7 MMOL/L (3.6-5.0); SODIUM 132 MMOL/L (135-145)
[2020-12-22] MEDS ORDERED: IOHEXOL 350 MG/ML 100 ML (OMNIPAQUE 350) VIAL IV ONE (21:00)
[2020-12-22] MEDS ORDERED: HOLD METFORMIN - RECEIVED CONTRAST 20 ML VIAL IV SCH (21:00)
[2020-12-22] MEDS ORDERED: NS 100 ML (IVPB) BAG IV ONE (21:00)
--- NOTE | 2020-12-22 21:37 | Diagnostic Imaging Report ---
PROCEDURE: CT abdomen and pelvis with contrast. TECHNIQUE: Multiple contiguous axial images were obtained through the abdomen and pelvis after administration of intravenous contrast. Auto Exposure Controls were utilized during the CT exam to meet ALARA standards for radiation dose reduction. All CT scans use one or more of the following dose optimizing techniques: automated exposure control, MA and/or KvP adjustment based on patient size and exam type or iterative reconstruction. DATE: December 22, 2020. COMPARISON: CT abdomen and pelvis April 05, 2020. INDICATION: 60-year-old male, epigastric pain. History of pancreatic cancer status post Whipple procedure. FINDINGS: The visualized portions of the lung bases are clear. The heart is not enlarged. There is no pericardial effusion. The liver is unremarkable in size and contour. There is a large area of relative increased attenuation in the right lobe of the liver which appears fairly round on axial image 19 and measures 9.0 x 7.6 cm in size. This is not visible on the delayed postcontrast imaging. There is a more wedge-shaped area of relatively increased attenuation in the right lobe of the liver on axial image 16 which is likely a perfusion finding. There is mild intrahepatic bile duct dilation. The main, right and left portal veins are patent. The patient is status post cholecystectomy. The common bile duct is not grossly dilated. The patient is status post Whipple procedure. There is no gross dilation of the main pancreatic duct. The remaining portions of the pancreatic parenchyma are unremarkable. The spleen is normal in size. The adrenal glands are unremarkable. Unremarkable appearance of the renal parenchyma. The urinary collecting systems are not distended. There is no identified renal or ureteral stone. The urinary bladder is unremarkable. There is slight distention of the proximal small bowel with otherwise normal bowel caliber. There is no evidence of acute appendicitis. There is no free intraperitoneal air. There is no drainable fluid collection. There is no free pelvic fluid. There are atherosclerotic calcifications. There are common iliac stents, bilaterally. There is occlusion of the left common iliac stent. There is reconstitution of flow in the left internal and external iliac arteries. There is no identified abnormally enlarged lymph node in the abdomen or pelvis which meets CT size criteria for adenopathy. There is no identified acute bony abnormality. IMPRESSION: CT abdomen and pelvis: 1. Slight distention of the proximal small bowel with otherwise normal bowel caliber. This is of questionable significance. 2. Rounded area of relatively increased attenuation in the right lobe of the liver which potentially could be perfusion related although is not particularly wedge-shaped. Dedicated liver mass protocol MRI abdomen without and with intravenous contrast with ag-zop-aix-of-phase imaging is recommended for further assessment, especially given the shape. This could relate to a liver lesion of neoplastic etiology. 3. Status post Whipple procedure. 4. Occlusion of the left common iliac artery with reconstitution of flow in the left external and internal iliac arteries. Dictated by: Dictated on workstation # [id number]
== END 2020-12-22 22:18 | disposition home or self-care (01) ==
LOC: EDUNIT# 19:32 → ER 19:36
DX: C25.9 Malignant neoplasm of pancreas, unspecified (principal); I10 Essential (primary) hypertension; J44.9 Chronic obstructive pulmonary disease, unspecified; K21.9 Gastro-esophageal reflux disease without esophagitis; F41.9 Anxiety disorder, unspecified; F32.9 Major depressive disorder, single episode, unspecified; Z77.22 Contact with and (suspected) exposure to environmental tobacco smoke (acute) (chronic)
CPT/HCPCS: 36415; 74177; 80053; 83690; 85025

== ENCOUNTER → 2020-12-24 | Outpatient (CLI) | payer OTHER ==
--- NOTE | 2020-12-24 16:10 | Diagnostic Imaging Report ---
INDICATION: Liver mass, hepatomegaly, and pancreatic cancer. TECHNIQUE: The serum blood glucose level at the time of injection was 114 mg/dL. The patient was administered 11.6 mCi of F-18 FDG intravenously in the left antecubital location and PET imaging was performed from the top of the skull to the mid thighs. A noncontrast CT was also performed for attenuation correction and anatomic correlation. COMPARISON: No prior PET CT studies are available for comparison. Comparison is made with the recent CT of the abdomen and pelvis performed on 12/22/2020. FINDINGS: There is symmetric activity throughout the brain. Physiologic activity within the soft tissues of the neck is identified. No mediastinal or hilar hypermetabolism is identified. No pulmonary parenchymal hypermetabolism is identified. There is physiologic activity throughout the GI and tracts of the abdomen and pelvis. No hypermetabolic focus within the liver is identified to account for the area of hyperdensity noted on the recent CT. Post surgical changes from a Whipple procedure are noted in the abdomen. IMPRESSION: Unremarkable PET/CT study. No suspicious focus of hypermetabolism is identified. Dictated by: Dictated on workstation # [id number]
== END ==
LOC: RAD 10:21
PROVIDERS: ATTEND Internal Medicine Hematology & Oncology
DX: C25.9 Malignant neoplasm of pancreas, unspecified (principal); R16.0 Hepatomegaly, not elsewhere classified

== ENCOUNTER 2021-01-11 00:20 | Emergency (ER) | payer OTHER, MEDICARE ==
[~2021-01-11] VITALS: Ht 177 cm; Wt 51.7 kg
[2021-01-11] MEDS ORDERED: FAMOTIDINE 20MG/2ML IV (PEPCID) IV STA (00:39)
[2021-01-11 00:52] LABS: BASOPHILS % (AUTO) 0 % (0-10); EOSINOPHILS % (AUTO) 1 % (0-10); HEMATOCRIT 24 % (40-54); HEMOGLOBIN 7.6 G/DL (13.3-17.7); LYMPHOCYTES # (AUTO) 1.6 X 10^3 (1.0-4.0); LYMPHOCYTES % (AUTO) 46 % (12-44); MEAN CORPUSCULAR HEMOGLOBIN 28 PG (25-34); MEAN CORPUSCULAR HGB CONC 32 G/DL (32-36); MEAN CORPUSCULAR VOLUME 86 FL (80-99); MONOCYTES # (AUTO) 0.5 X 10^3 (0.0-1.0); MONOCYTES % (AUTO) 14 % (0-12); NEUTROPHILS # (AUTO) 1.3 X 10^3 (1.8-7.8); NEUTROPHILS % (AUTO) 38 % (42-75); PLATELET COUNT 231 10^3/uL (130-400); WHITE BLOOD COUNT 3.4 10^3/uL (4.3-11.0)
[2021-01-11 01:06] LABS: PROTHROMBIN TIME PATIENT 13.8 SEC (12.2-14.7)
[2021-01-11 01:08] LABS: BILIRUBIN,TOTAL 0.2 MG/DL (0.1-1.0); CALCIUM 8.5 MG/DL (8.5-10.1); CARBON DIOXIDE 21 MMOL/L (21-32); CHLORIDE 99 MMOL/L (98-107); GLUCOSE 110 MG/DL (70-105); LIPASE 17 U/L (8-78); MAGNESIUM 1.4 MG/DL (1.6-2.4); POTASSIUM 2.8 MMOL/L (3.6-5.0); SODIUM 137 MMOL/L (135-145); TOTAL PROTEIN 5.4 GM/DL (6.4-8.2)
[2021-01-11 01:10] LABS: ALANINE AMINOTRANSFERASE 16 U/L (0-55); ALBUMIN 2.7 GM/DL (3.2-4.5); ALKALINE PHOSPHATASE 254 U/L (40-136); BUN/CREATININE RATIO 9; CREATININE SERUM 0.66 MG/DL (0.60-1.30); GFR ESTIMATED > 60
--- NOTE | 2021-01-11 01:24 | ED Chest Pain ---
General Chief Complaint: Chest Pain Stated Complaint: CHEST PAIN Nursing Triage Note: Pt in per [facility] for CP reports he was feeling good so he didn't think it would be bad to drink a few beers. Nursing Sepsis Screen: No Definite Risk History of Present Illness Date Seen by Provider: Jan 11, 2021 Time Seen by Provider: 00:30 Initial Comments 60-year-old male presents with epigastric/substernal chest pain. Patient reports is been going on for couple hours. Patient has a history of pancreatitis and has had a Whipple. Patient reports that he drank a couple beers a night. Patient denies diaphoresis, nausea vomiting or radiation of the pain. Allergies and Home Medications Allergies Coded Allergies: Penicillins (Unverified Allergy, Intermediate, hives, 01/09/20) hydromorphone (Verified Allergy, Mild, 12/22/20) Home Medications ALPRAZolam 0.25 Mg Tablet, 0.25 MG PO BID PRN for ANXIETY, (Reported) Escitalopram Oxalate 20 Mg Tablet, 20 MG PO DAILY, (Reported) Lisinopril 20 Mg Tablet, 10 MG PO DAILY, (Reported) TAKES OF A 20MG Metoprolol Tartrate 100 Mg Tablet, 50 MG PO BID, (Reported) TAKES OF A 100MG TAB TWICE DAILY [place] 3 Polyunsat Fatty Acids 1,000 Mg Cap, 1,000 MG PO BID, (Reported) Omeprazole 20 Mg Capsule.dr, 20 MG PO DAILY, (Reported) Trazodone HCl 50 Mg Tablet, 50-150 MG PO HS PRN for SLEEP, (Reported) TAKES 1 TO 3 (50MG) TABS Patient Home Medication List Home Medication List Reviewed: Yes Review of Systems Review of Systems Constitutional: No chills, No fever EENTM: No Symptoms Reported Respiratory: Denies Cough, Denies Shortness of Air Cardiovascular: Chest Pain; Denies Irregular Heart Rate, Denies Lightheadedness Gastrointestinal: Denies Abdominal Pain, Denies Nausea, Denies Vomiting Genitourinary: No Symptoms Reported Skin: no symptoms reported Psychiatric/Neurological: No Symptoms Reported Endocrine: No Symptoms Reported Hematologic/Lymphatic: No Symptoms Reported Past Lvxdzbk-Brrmnw-Xvdiiw Hx Past Med/Social Hx: Reviewed Nursing Past Med/Soc Hx Patient Social History Alcohol Beverage of Choice: Beer Type Used: Cigarettes 2nd Hand Smoke Exposure: Yes Recent Infectious Disease Expo: No Recent Hopitalizations: No Immunizations Up To Date Tetanus Booster (TDap): Unknown PED Vaccines UTD: No Seasonal Allergies Seasonal Allergies: Yes Past Medical History Surgeries: Yes (HERNIA REPAIR, STENT IN LEGS, WHIPPLE) Appendectomy, Gallbladder Respiratory: Yes Sleep Apnea, COPD Currently Using CPAP: No (DOESN'T USE CPAP) Cardiac: Yes High Cholesterol, Hypertension Neurological: Yes Stroke Sexually Transmitted Disease: No HIV/AIDS: No Genitourinary: No Gastrointestinal: Yes Gastroesophageal Reflux Musculoskeletal: Yes Chronic Back Pain Endocrine: No HEENT: Yes (READING GLASSES, TOP DENTURE) Loss of Vision: Denies Hearing Impairment: Denies Cancer: No Psychosocial: Yes Anxiety, Depression Integumentary: No Blood Disorders: No Adverse Reaction/Blood Tranf: No (N/A) Family Medical History Cancer, Stroke Physical Exam Vital Signs Vital Signs - First Documented 01/11/21 01/11/21 00:30 00:32 Temp 36.4 Pulse 93 Resp 21 B/P (MAP) 96/57 (70) Pulse Ox 100 O2 Delivery Room Air Capillary Refill : Less Than 3 Seconds Height, Weight, BMI Height: 5'7.00" Weight: 185lbs. 0.0oz. 83.005254sl; 16.00 BMI Method:Stated General Appearance: Anxious Respiratory: Lungs Clear, Normal Breath Sounds Cardiovascular: Regular Rate, Rhythm, No Edema Extremity: Normal Capillary Refill, Normal Inspection Neurologic/Psychiatric: Alert, Oriented x3 Skin: Normal Color, Warm/Dry Progress/Results/Core Measures Results/Orders Lab Results Laboratory Tests Test 01/11/21 00:40 01/11/21 02:40 Range/Units White Blood Count 3.4 L 4.3-11.0 10^3/uL Red Blood Count 2.73 L 4.35-5.85 10^6/uL Hemoglobin 7.6 L 13.3-17.7 G/DL Hematocrit 24 L 40-54 % Mean Corpuscular Volume 86 80-99 FL Mean Corpuscular Hemoglobin 28 25-34 PG Mean Corpuscular Hemoglobin Concent 32 32-36 G/DL Red Cell Distribution Width 20.2 H 10.0-14.5 % Platelet Count 231 130-400 10^3/uL Mean Platelet Volume 10.0 7.4-10.4 FL Immature Granulocyte % (Auto) 0 % Neutrophils (%) (Auto) 38 L 42-75 % Lymphocytes (%) (Auto) 46 H 12-44 % Monocytes (%) (Auto) 14 H 0-12 % Eosinophils (%) (Auto) 1 0-10 % Basophils (%) (Auto) 0 0-10 % Neutrophils # (Auto) 1.3 L 1.8-7.8 X 10^3 Lymphocytes # (Auto) 1.6 1.0-4.0 X 10^3 Monocytes # (Auto) 0.5 0.0-1.0 X 10^3 Eosinophils # (Auto) 0.0 0.0-0.3 10^3/uL Basophils # (Auto) 0.0 0.0-0.1 10^3/uL Immature Granulocyte # (Auto) 0.0 0.0-0.1 10^3/uL Prothrombin Time 13.8 12.2-14.7 SEC INR Comment 1.0 0.8-1.4 Activated Partial Thromboplast Time 28 24-35 SEC Sodium Level 137 135-145 MMOL/L Potassium Level 2.8 L 3.6-5.0 MMOL/L Chloride Level 99 98-107 MMOL/L Carbon Dioxide Level 21 21-32 MMOL/L Anion Gap 17 H 5-14 MMOL/L Blood Urea Nitrogen 6 L 7-18 MG/DL Creatinine 0.66 0.60-1.30 MG/DL Estimat Glomerular Filtration Rate > 60 BUN/Creatinine Ratio 9 Glucose Level 110 H 70-105 MG/DL Calcium Level 8.5 8.5-10.1 MG/DL Corrected Calcium 9.5 8.5-10.1 MG/DL Magnesium Level 1.4 L 1.6-2.4 MG/DL Total Bilirubin 0.2 0.1-1.0 MG/DL Aspartate Amino Transf (AST/SGOT) 20 5-34 U/L Alanine Aminotransferase (ALT/SGPT) 16 0-55 U/L Alkaline Phosphatase 254 H 40-136 U/L Myoglobin 28.8 10.0-92.0 NG/ML Troponin I < 0.30 < 0.30 <0.30 NG/ML Total Protein 5.4 L 6.4-8.2 GM/DL Albumin 2.7 L 3.2-4.5 GM/DL Lipase 17 8-78 U/L Serum Alcohol < 10 <10 MG/DL My Orders Orders - CASANOVA,VANNESSA L DO Cbc With Automated Diff (01/11/21 00:39) Magnesium (01/11/21 00:39) Chest 1 View Ap/Pa Only (01/11/21 00:39) Ekg Tracing (01/11/21 00:39) Comprehensive Metabolic Panel (01/11/21 00:39) Myoglobin Serum (01/11/21 00:39) Protime With Inr (01/11/21 00:39) Partial Thromboplastin Time (01/11/21 00:39) Monitor-Rhythm Ecg Trace Only (01/11/21 00:39) Ed Iv/Invasive Line Start (01/11/21 00:39) Troponin I Fs (01/11/21 00:39) Famotidine Injection (Pepcid Injection) (01/11/21 00:39) Alcohol (01/11/21 00:39) Lipase (01/11/21 00:39) Troponin I Fs (01/11/21 02:40) Vital Signs/I&O 01/11/21 01/11/21 01/11/21 00:30 00:32 03:35 Temp 36.4 36.4 Pulse 93 89 Resp 21 18 B/P (MAP) 96/57 (70) 143/75 (70) Pulse Ox 100 100 O2 Delivery Room Air Room Air Room Air Blood Pressure Mean: 70 Progress Progress Note : Progress Note Patient symptoms improved significantly with the Pepcid, patient then went to sleep and slept throughout the rest of his stay in the ER. Patient with 2 - troponins, negative chest x-ray. Patient does have slight decrease in his hemoglobin from a few days ago. I discussed this with him and recommend he follow-up Wednesday morning with his primary care provider for recheck of his hemoglobin to ensure that he does not have GI bleed. Patient stable and discharged home Initial ECG Impression Date: Jan 11, 2021 Initial ECG Impression Time: 00:32 Initial ECG Rate: 98 Initial ECG Rhythm: S.Tach Initial ECG Impression: Normal Diagnostic Imaging Diagonstic Imaging: Xray Plain Films/CT/US/NM/MRI: chest Comments No acute finding Reviewed: Reviewed by Me Departure Impression Primary Impression: Chest pain Qualified Codes: R07.9 - Chest pain, unspecified Additional Impressions: Gastritis Qualified Codes: K29.70 - Gastritis, unspecified, without bleeding Anemia Qualified Codes: D64.9 - Anemia, unspecified Disposition: HOME, SELF-CARE Condition: Stable Departure-Patient Inst. Referrals: [facility] (PCP/Family) Primary Care Physician Patient Instructions: Gastritis (DC), Chest Pain That Is Not Caused by the Heart (DC) Add. Discharge Instructions: Follow-up with your primary care provider on Wednesday for recheck of your hemoglobin levels and recheck of today's symptoms All discharge instructions reviewed with patient and/or family. Voiced understanding. VANNESSA CASANOVA DO Jan 11, 2021 01:24
[2021-01-11 03:35] VITALS: BP 143/75
--- NOTE | 2021-01-11 07:12 | Diagnostic Imaging Report ---
INDICATION: Chest pain times one hour. TECHNIQUE: Single view chest 12:36 AM. CORRELATION STUDY: None FINDINGS: The heart size, mediastinal configuration and pulmonary vascularity are within normal limits. Right IJ Iztrko-t-Kmaq catheter tip high right atrium. Lung house hyperinflated but overall appearing clear. No infiltrate. IMPRESSION: 1. Findings of COPD. Negative for acute abnormality. Dictated by: Dictated on workstation # [id number]
== END 2021-01-11 03:19 | disposition home or self-care (01) ==
LOC: EDUNIT# 00:20 → ER FS 00:29
DX: K29.70 Gastritis, unspecified, without bleeding (principal); D64.9 Anemia, unspecified; J44.9 Chronic obstructive pulmonary disease, unspecified; I10 Essential (primary) hypertension; F41.9 Anxiety disorder, unspecified; F32.9 Major depressive disorder, single episode, unspecified; K21.9 Gastro-esophageal reflux disease without esophagitis; Z77.22 Contact with and (suspected) exposure to environmental tobacco smoke (acute) (chronic); Z87.19 Personal history of other diseases of the digestive system; Z90.49 Acquired absence of other specified parts of digestive tract; Z79.899 Other long term (current) drug therapy
CPT/HCPCS: 36415; 71045; 80053; 80320; 83690; 83735; 83874; 84484; 85025; 85610; 85730; 93005; 93041

== ENCOUNTER 2021-01-14 10:57 | Inpatient (IN) | payer MEDICARE, OTHER ==
[~2021-01-14] VITALS: Ht 170 cm; Wt 51.2 kg
--- NOTE | 2021-01-14 11:38 | ED General ---
General Stated Complaint: FEVER Source of Information: Patient, Caregiver Exam Limitations: No Limitations History of Present Illness Date Seen by Provider: Jan 14, 2021 Time Seen by Provider: 11:25 Initial Comments Patient is a 60-year-old male with a history of pancreatic cancer currently undergoing chemotherapy who presents today from the cancer center with a chief complaint of fever. Patient presented to the cancer center today for his weekly chemotherapy and was noted to have a temperature at their evaluation. Patient states that he has had a little bit of a productive cough, a little bit of diarrhea. He has had increasing confusion for the last 5 days. Patient reportedly by his fiance who is at the bedside went to [place] emergency department on Wednesday where they thought that he had had a "light stroke". The patient was complaining of chest pain that radiated into both shoulders and into his neck. Re states that since that time he has been persistently confused unable to perform even simple tasks at the house. She states last night he was attempting to put the lock on the garage door and could not figure out how to get it done. She states he has been talking not quite right since that time. He does not report feeling feverish but he is always "cold". No nausea, vomiting, problems with urination. No rashes. He recently came off antibiotics for sores in his mouth. He sees Dr. Elias at the [facility] for his chemotherapy. No recent changes in medications. He does continue to smoke cigarettes. All other review of systems reviewed and negative except as stated above. Timing/Duration: 4-5 Days Severity: Moderate Associated Systoms: Other (Fever and altered mental status) Allergies and Home Medications Allergies Coded Allergies: Penicillins (Unverified Allergy, Intermediate, hives, 01/09/20) hydromorphone (Verified Allergy, Mild, 12/22/20) Home Medications ALPRAZolam 0.25 Mg Tablet, 0.25 MG PO BID PRN for ANXIETY, (Reported) Escitalopram Oxalate 20 Mg Tablet, 20 MG PO DAILY, (Reported) Lisinopril 20 Mg Tablet, 10 MG PO DAILY, (Reported) TAKES OF A 20MG Metoprolol Tartrate 100 Mg Tablet, 50 MG PO BID, (Reported) TAKES OF A 100MG TAB TWICE DAILY [place] 3 Polyunsat Fatty Acids 1,000 Mg Cap, 1,000 MG PO BID, (Reported) Omeprazole 20 Mg Capsule.dr, 20 MG PO DAILY, (Reported) Trazodone HCl 50 Mg Tablet, 50-150 MG PO HS PRN for SLEEP, (Reported) TAKES 1 TO 3 (50MG) TABS Patient Home Medication List Home Medication List Reviewed: Yes Review of Systems Review of Systems Constitutional: see HPI EENTM: no symptoms reported Respiratory: cough, phlegm Cardiovascular: no symptoms reported Gastrointestinal: diarrhea Genitourinary: no symptoms reported Musculoskeletal: no symptoms reported Skin: no symptoms reported Psychiatric/Neurological: Other (Confusion) Hematologic/Lymphatic: Other (Low blood counts and electrolytes per fianc) All Other Systems Reviewed Negative Unless Noted: Yes Past Vxykgtt-Ywgbaw-Hitdio Hx Patient Social History Alcohol Beverage of Choice: Beer Type Used: Cigarettes 2nd Hand Smoke Exposure: Yes Recent Hopitalizations: No Immunizations Up To Date Tetanus Booster (TDap): Unknown PED Vaccines UTD: No Seasonal Allergies Seasonal Allergies: Yes Past Medical History Surgeries: Yes (HERNIA REPAIR, STENT IN LEGS, WHIPPLE) Appendectomy, Gallbladder Respiratory: Yes Sleep Apnea, COPD Currently Using CPAP: No (DOESN'T USE CPAP) Cardiac: Yes High Cholesterol, Hypertension Neurological: Yes Stroke Sexually Transmitted Disease: No HIV/AIDS: No Genitourinary: No Gastrointestinal: Yes Gastroesophageal Reflux Musculoskeletal: Yes Chronic Back Pain Endocrine: No HEENT: Yes (READING GLASSES, TOP DENTURE) Loss of Vision: Denies Hearing Impairment: Denies Cancer: No Psychosocial: Yes Anxiety, Depression Integumentary: No Blood Disorders: No Adverse Reaction/Blood Tranf: No (N/A) Family Medical History Cancer, Stroke Physical Exam Vital Signs Vital Signs - First Documented 01/14/21 11:14 Temp 38.0 Pulse 90 Resp 24 B/P (MAP) 91/53 (66) Pulse Ox 98 O2 Delivery Room Air Capillary Refill : Height, Weight, BMI Height: 5'7.00" Weight: 185lbs. 0.0oz. 83.265171od; 16.00 BMI Method:Stated General Appearance: No Apparent Distress, WD/WN Eyes: Bilateral Eye Normal Inspection, Bilateral Eye PERRL, Bilateral Eye EOMI HEENT: Pharynx Normal, Other (Upper dentures in place) Neck: Normal Inspection, Supple Respiratory: Lungs Clear, Normal Breath Sounds, No Accessory Muscle Use, No Respiratory Distress Cardiovascular: Regular Rate, Rhythm Gastrointestinal: Normal Bowel Sounds, Non Tender, Soft Extremity: Normal Capillary Refill, Normal Inspection, Normal Range of Motion, Non Tender, No Calf Tenderness Neurologic/Psychiatric: Alert, No Motor/Sensory Deficits, Normal Mood/Affect, Other (Patient is disoriented to year, month, location, president, he is unable to answer any of these questions briskly.) Skin: Normal Color, Warm/Dry Focused Exam Lactate Level 01/14/21 11:45: Lactic Acid Level 3.52*H 01/14/21 14:20: Lactic Acid Level 1.51 Lactic Acid Level Laboratory Tests Test 01/14/21 11:45 01/14/21 14:20 Lactic Acid Level 3.52 MMOL/L (0.50-2.00) *H 1.51 MMOL/L (0.50-2.00) Progress/Results/Core Measures Suspected Sepsis SIRS Temperature: Pulse: Respiratory Rate: Laboratory Tests 01/14/21 11:45: White Blood Count 2.7L Blood Pressure / Mean: 01/14/21 11:45: Lactic Acid Level 3.52*H 01/14/21 14:20: Lactic Acid Level 1.51 Laboratory Tests 01/14/21 11:45: Creatinine 0.81, Platelet Count 257, Total Bilirubin 0.2 01/14/21 12:10: INR Comment 1.5H Results/Orders Lab Results Laboratory Tests Test 01/14/21 11:45 01/14/21 11:49 01/14/21 12:10 01/14/21 13:00 Range/Units White Blood Count 2.7 L 4.3-11.0 10^3/uL Red Blood Count 2.70 L 4.30-5.52 10^6/uL Hemoglobin 7.8 L 13.3-17.7 g/dL Hematocrit 24 L 40-54 % Mean Corpuscular Volume 89 80-99 fL Mean Corpuscular Hemoglobin 29 25-34 pg Mean Corpuscular Hemoglobin Concent 33 32-36 g/dL Red Cell Distribution Width 21.2 H 10.0-14.5 % Platelet Count 257 130-400 10^3/uL Mean Platelet Volume 9.4 9.0-12.2 fL Immature Granulocyte % (Auto) 0 % Neutrophils (%) (Auto) 19 L 42-75 % Lymphocytes (%) (Auto) 38 12-44 % Monocytes (%) (Auto) 41 H 0-12 % Eosinophils (%) (Auto) 0 0-10 % Basophils (%) (Auto) 0 0-10 % Neutrophils # (Auto) 0.5 L 1.8-7.8 10^3/uL Lymphocytes # (Auto) 1.1 1.0-4.0 10^3/uL Monocytes # (Auto) 1.1 H 0.0-1.0 10^3/uL Eosinophils # (Auto) 0.0 0.0-0.3 10^3/uL Basophils # (Auto) 0.0 0.0-0.1 10^3/uL Immature Granulocyte # (Auto) 0.0 0.0-0.1 10^3/uL Neutrophils % (Manual) 33 % Lymphocytes % (Manual) 42 % Monocytes % (Manual) 24 % Eosinophils % (Manual) 0 % Basophils % (Manual) 0 % Band Neutrophils 1 % Poikilocytosis SLIGHT Anisocytosis MODERATE Sodium Level 132 L 135-145 MMOL/L Potassium Level 3.1 L 3.6-5.0 MMOL/L Chloride Level 97 L 98-107 MMOL/L Carbon Dioxide Level 23 21-32 MMOL/L Anion Gap 12 5-14 MMOL/L Blood Urea Nitrogen 8 7-18 MG/DL Creatinine 0.81 0.60-1.30 MG/DL Estimat Glomerular Filtration Rate > 60 BUN/Creatinine Ratio 10 Glucose Level 167 H 70-105 MG/DL Lactic Acid Level 3.52 *H 0.50-2.00 MMOL/L Calcium Level 8.1 L 8.5-10.1 MG/DL Corrected Calcium 9.1 8.5-10.1 MG/DL Total Bilirubin 0.2 0.1-1.0 MG/DL Aspartate Amino Transf (AST/SGOT) 23 5-34 U/L Alanine Aminotransferase (ALT/SGPT) 15 0-55 U/L Alkaline Phosphatase 210 H 40-136 U/L Ammonia 26 11-32 UMOL/L Troponin I < 0.028 <0.028 NG/ML Total Protein 5.1 L 6.4-8.2 GM/DL Albumin 2.7 L 3.2-4.5 GM/DL Influenza Type A (RT-PCR) Not Detected Not Detecte Influenza Type B (RT-PCR) Not Detected Not Detecte SARS-CoV-2 RNA (RT-PCR) Not Detected Not Detecte Prothrombin Time 18.1 H 12.2-14.7 SEC INR Comment 1.5 H 0.8-1.4 Activated Partial Thromboplast Time 36 H 24-35 SEC Urine Color YELLOW Urine Clarity CLEAR Urine pH 6.0 5-9 Urine Specific [place] 1.025 H 1.016-1.022 Urine Protein 1+ H NEGATIVE Urine Glucose (UA) TRACE H NEGATIVE Urine Ketones NEGATIVE NEGATIVE Urine Nitrite NEGATIVE NEGATIVE Urine Bilirubin NEGATIVE NEGATIVE Urine Urobilinogen 0.2 < = 1.0 MG/DL Urine Leukocyte Esterase NEGATIVE NEGATIVE Urine RBC (Auto) NEGATIVE NEGATIVE Urine RBC NONE /HPF Urine WBC 0-2 /HPF Urine Squamous Epithelial Cells RARE /HPF Urine Crystals NONE /LPF Urine Bacteria TRACE /HPF Urine Casts PRESENT /LPF Urine Hyaline Casts 0-2 H /LPF Urine Mucus MODERATE H /LPF Urine Culture Indicated CULTURE PENDING Test 01/14/21 14:20 Range/Units Lactic Acid Level 1.51 0.50-2.00 MMOL/L My Orders Orders - MIKEY DANGELO MD Cbc With Automated Diff (01/14/21 11:40) Comprehensive Metabolic Panel (01/14/21 11:40) Blood Culture (01/14/21 11:40) Sputum Culture (01/14/21 11:40) Urinalysis (01/14/21 11:40) Urine Culture (01/14/21 11:40) Protime With Inr (01/14/21 11:40) Partial Thromboplastin Time (01/14/21 11:40) Chest 1 View, Ap/Pa Only (01/14/21 11:40) Ed Iv/Invasive Line Start (01/14/21 11:40) Ed Iv/Invasive Line Start (01/14/21 11:40) Vital Signs Adult Sepsis Patie Q15M (01/14/21 11:40) O2 (01/14/21 11:40) Remove Rings In Anticipation O (01/14/21 11:40) Lactic Acid Analyzer (01/14/21 11:40) Influenza A And B By Pcr (01/14/21 11:40) Covid 19 Inhouse Test (01/14/21 11:40) Troponin I (01/14/21 11:40) Ekg Tracing (01/14/21 11:40) Ns Iv 1000 Ml (Sodium Chloride 0.9%) (01/14/21 12:00) Manual Differential (01/14/21 11:45) Ammonia (01/14/21 12:09) Ns Iv 1000 Ml (Sodium Chloride 0.9%) (01/14/21 14:15) Meropenem (Merrem 500 Mg) (01/14/21 14:15) Ct Head Wo (01/14/21 14:19) Ceftriaxone (Rocephin) (01/14/21 15:45) Vancomycin Injection (Vancomycin Injecti (01/14/21 15:45) Medications Given in ED Current Medications Medications Dose Ordered Sig/Boyd Route Start Time Stop Time Status Last Admin Dose Admin Meropenem 500 mg/ Sterile Water 10 ml @ 200 mls/hr ONCE ONCE IV 01/14/21 14:15 01/14/21 14:17 DC 01/14/21 14:57 200 MLS/HR Vital Signs/I&O 01/14/21 11:14 Temp 38.0 Pulse 90 Resp 24 B/P (MAP) 91/53 (66) Pulse Ox 98 O2 Delivery Room Air Capillary Refill : Progress Note : Time: 11:37 Progress Note Oral temp is 100.8 at the time of my evaluation 1451 Patient's blood pressure is now 109/57 the trend is upwards from 85/47, 76/52 to 107/71 and now again as stated 109/57. 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 Will talk with Dr. Napoles for admission. ECG Initial ECG Impression Date: Jan 14, 2021 Initial ECG Impression Time: 11:51 Initial ECG Rate: 83 Initial ECG Rhythm: Normal Sinus Initial ECG Intervals: Normal Initial ECG Intervals VT 145 QRS 97 QTc 463 Initial ECG Impression: Normal Diagnostic Imaging Diagonstic Imaging: Xray, CT Plain Films/CT/US/NM/MRI: chest, head Comments [facility], [place] NAME: HIRAL JAY MED REC#: [id number] PT STATUS: REG ER : 1960 PHYSICIAN: MIKEY DANGELO MD ADMIT DATE: 01/14/21/ER Draft Date of Exam:01/14/21 CHEST 1 VIEW, AP/PA ONLY History: Chest pain, fever, history of pancreatic cancer COMPARISON: 01/11/2021 TECHNIQUE: Frontal view of the chest FINDINGS: Lung volumes are large. No focal consolidation is seen. There is a nodular density at the right lung base which most likely represents a nipple shadow, with asymmetric nodular density on the contralateral side. There is no pleural effusion or pneumothorax. The cardiac silhouette is normal in size. The right Port-A-Cath tip projects over the cavoatrial junction. IMPRESSION: 1. No acute pulmonary abnormality. Dictated on workstation # [id number] Dict: 01/14/21 1315 Trans: 01/14/[address] [facility] [id number] Interpreted by: HIRAL LOPEZ MD Electronically signed by: [facility] [place], [place] NAME: PIERREHIRAL Leone [facility] REC#: [id number] PT STATUS: REG ER : 1960 PHYSICIAN: MIKEY DANGELO MD ADMIT DATE: 01/14/21/ER Draft Date of Exam:01/14/21 CT HEAD WO PROCEDURE: CT head without contrast. TECHNIQUE: Multiple contiguous axial images were obtained through the brain without the use of intravenous contrast. Auto Exposure Controls were utilized during the CT exam to meet ALARA standards for radiation dose reduction. INDICATION: Altered mental status and fever. COMPARISON: 04/05/2020. FINDINGS: Encephalomalacia in the left parieto-occipital region is unchanged. Associated subcortical hypoattenuation is likely due to gliosis in this region. There is mild ex vacuo dilatation of the left lateral ventricle. No intracranial hyperdense hemorrhage or space-occupying mass. No hydrocephalus or midline shift. Partially empty sella. No sagging of the brainstem. No cerebellar tonsillar ectopia. No concerning focal osseous lesion. Patchy mucosal thickening within the bilateral ethmoid sinuses. Other paranasal sinuses are clear. Mastoid air cells are clear. IMPRESSION: 1. No acute intracranial process by CT. 2. No change in left parietal encephalomalacia that is likely due to old ischemic injury. Dictated on workstation # [id number] Dict: 01/14/21 1450 Trans: 01/14/21 1502 [id number] Interpreted by: ESHA WAGONER MD Electronically signed by: Departure Communication (Admissions) Time/Spoke to Admitting Phy: 15:[address] Napoles, accepts patient for admission to the ICU Time/Spoke to Consulting Phy: 15:[address] Bardales who recommends Rocephin and vancomycin at this time Impression Primary Impression: Fever Qualified Codes: R50.9 - Fever, unspecified Additional Impressions: Sepsis Qualified Codes: A41.9 - Sepsis, unspecified organism Pancreatic cancer Qualified Codes: C25.9 - Malignant neoplasm of pancreas, unspecified Disposition: ADMITTED INPATIENT Condition: Improved Admissions Decision to Admit Reason: Admit from ER (General) Decision to Admit/Date: Jan 14, 2021 Time/Decision to Admit Time: 15:55 Departure-Patient Inst. Referrals: [facility] (PCP/Family) Primary Care Physician MIKEY DANGELO MD Jan 14, 2021 11:38
[2021-01-14] MEDS ORDERED: NS IV 1000 ML 2,000 ML ONE (11:50)
[2021-01-14] MEDS: NS IV 1000 ML 1,000 ML IV SCH ×4 (11:52→18:03)
[2021-01-14 11:55] LABS: BASOPHILS % (AUTO) 0 % (0-10); EOSINOPHILS % (AUTO) 0 % (0-10); HEMATOCRIT 24 % (40-54); HEMOGLOBIN 7.8 g/dL (13.3-17.7); LYMPHOCYTES # (AUTO) 1.1 10^3/uL (1.0-4.0); LYMPHOCYTES % (AUTO) 38 % (12-44); MEAN CORPUSCULAR HEMOGLOBIN 29 pg (25-34); MEAN CORPUSCULAR HGB CONC 33 g/dL (32-36); MEAN CORPUSCULAR VOLUME 89 fL (80-99); MEAN PLATELET VOLUME 9.4 fL (9.0-12.2); MONOCYTES # (AUTO) 1.1 10^3/uL (0.0-1.0); MONOCYTES % (AUTO) 41 % (0-12); NEUTROPHILS # (AUTO) 0.5 10^3/uL (1.8-7.8); NEUTROPHILS % (AUTO) 19 % (42-75); PLATELET COUNT 257 10^3/uL (130-400); WHITE BLOOD COUNT 2.7 10^3/uL (4.3-11.0)
[2021-01-14 12:18] LABS: ALBUMIN 2.7 GM/DL (3.2-4.5); CHLORIDE 97 MMOL/L (98-107); POTASSIUM 3.1 MMOL/L (3.6-5.0); SODIUM 132 MMOL/L (135-145)
[2021-01-14 12:19] LABS: CALCIUM 8.1 MG/DL (8.5-10.1)
[2021-01-14 12:21] LABS: GLUCOSE 167 MG/DL (70-105); TOTAL PROTEIN 5.1 GM/DL (6.4-8.2)
[2021-01-14 12:22] LABS: CARBON DIOXIDE 23 MMOL/L (21-32)
[2021-01-14 12:23] LABS: BILIRUBIN,TOTAL 0.2 MG/DL (0.1-1.0)
[2021-01-14 12:24] LABS: ALKALINE PHOSPHATASE 210 U/L (40-136); CREATININE SERUM 0.81 MG/DL (0.60-1.30); GFR ESTIMATED > 60
[2021-01-14 12:25] LABS: BUN/CREATININE RATIO 10
[2021-01-14 12:27] LABS: ALANINE AMINOTRANSFERASE 15 U/L (0-55)
[2021-01-14 12:30] LABS: ANISOCYTOSIS MODERATE; BAND NEUTROPHILS 1 %; BASOPHILS % (MANUAL) 0 %; EOSINOPHILS % (MANUAL) 0 %; LYMPHOCYTES % (MANUAL) 42 %; MONOCYTES % (MANUAL) 24 %; NEUTROPHILS % (MANUAL) 33 %; POIKILOCYTOSIS SLIGHT
[2021-01-14 12:31] LABS: INR 1.5 (0.8-1.4); PROTHROMBIN TIME PATIENT 18.1 SEC (12.2-14.7)
--- NOTE | 2021-01-14 13:18 | Diagnostic Imaging Report ---
History: Chest pain, fever, history of pancreatic cancer COMPARISON: 01/11/2021 TECHNIQUE: Frontal view of the chest FINDINGS: Lung volumes are large. No focal consolidation is seen. There is a nodular density at the right lung base which most likely represents a nipple shadow, with asymmetric nodular density on the contralateral side. There is no pleural effusion or pneumothorax. The cardiac silhouette is normal in size. The right Port-A-Cath tip projects over the cavoatrial junction. IMPRESSION: 1. No acute pulmonary abnormality. Dictated by: Dictated on workstation # [id number]
[2021-01-14 13:20] LABS: BILIRUBIN,URINE NEGATIVE (NEGATIVE); CLARITY,URINE CLEAR; COLOR,URINE YELLOW; GLUCOSE, URINE (UA) TRACE (NEGATIVE); KETONES,URINE NEGATIVE (NEGATIVE); LEUKOCYTE ESTERASE ,URINE NEGATIVE (NEGATIVE); NITRITE,URINE NEGATIVE (NEGATIVE); PROTEIN,URINE 1+ (NEGATIVE)
[2021-01-14 13:29] LABS: BACTERIA,URINE TRACE /HPF; SQUAMOUS EPITHELIAL CELL,UR RARE /HPF; WBC,URINE 0-2 /HPF
[2021-01-14 13:30] LABS: HYALINE CASTS, URINE 0-2 /LPF
[2021-01-14] MEDS ORDERED: NS IV 1000 ML 1,000 ML IV SCH (14:15)
[2021-01-14] MEDS ORDERED: MEROPENEM 500 MG in WATER (STERILE) FOR INJECTION 10 ML IV ONE (14:15)
--- NOTE | 2021-01-14 15:02 | Diagnostic Imaging Report ---
PROCEDURE: CT head without contrast. TECHNIQUE: Multiple contiguous axial images were obtained through the brain without the use of intravenous contrast. Auto Exposure Controls were utilized during the CT exam to meet ALARA standards for radiation dose reduction. INDICATION: Altered mental status and fever. COMPARISON: 04/05/2020. FINDINGS: Encephalomalacia in the left parieto-occipital region is unchanged. Associated subcortical hypoattenuation is likely due to gliosis in this region. There is mild ex vacuo dilatation of the left lateral ventricle. No intracranial hyperdense hemorrhage or space-occupying mass. No hydrocephalus or midline shift. Partially empty sella. No sagging of the brainstem. No cerebellar tonsillar ectopia. No concerning focal osseous lesion. Patchy mucosal thickening within the bilateral ethmoid sinuses. Other paranasal sinuses are clear. Mastoid air cells are clear. IMPRESSION: 1. No acute intracranial process by CT. 2. No change in left parietal encephalomalacia that is likely due to old ischemic injury. Dictated by: Dictated on workstation # [id number]
[2021-01-14] MEDS ORDERED: VANCOMYCIN INJECTION 1,000 MG in NS (IVPB) 250 ML IV SCH (15:45)
[2021-01-14] MEDS ORDERED: cefTRIAXone 2,000 MG in WATER (STERILE) FOR INJECTION 20 ML IV ONE (15:45)
[2021-01-14] MEDS ORDERED: ALPRAZolam 0.25 MG (XANAX) TAB PO ONE (16:15)
[2021-01-14] MEDS ORDERED: NS IV 1000 ML 1,000 ML ONE (17:55)
[2021-01-14 18:29] VITALS: BP 111/59
--- NOTE | 2021-01-14 18:30 | History & Physical-Hospitalist ---
History of Present Illness HPI/Chief Complaint Chief complaint: Altered mental status with fever History of present illness: This is a 60-year-old white male undergoing chemotherapy for pancreatic cancer who presents with altered mental status and hypotension and underwent septic work-up revealing elevated lactic acid responding to aggressive IV fluids. He was placed on broad-spectrum antibiotics but no source of infection noted. At this current time patient feels much better his blood pressure is 109/60 and patient is much improved. Source: patient, RN/MD, old records Exam Limitations: no limitations Date Seen 01/14/21 Time Seen by a Provider: 18:00 Attending Physician Jazmin Napoles DO [facility] Referring Physician Date of Admission Jan 14, 2021 at 15:59 Home Medications & Allergies Home Medications Reviewed patient Home Medication Reconciliation performed by pharmacy medication reconciliations aviation safety equipment technician and/or nursing. Patients Allergies have been reviewed. Allergies Allergies Coded Allergies Penicillins (Unverified Allergy, Intermediate, hives, 01/09/20) hydromorphone (Verified Allergy, Mild, 12/22/20) Past Fhvfrjc-Hebsoq-Iizpjy Hx Patient Social History Marrital Status: single Employed/Student: unemployed Tobacco Use?: Yes Tobacco type used: Cigarettes Smoking Status: Current Everyday Smoker Substance use?: No Alcohol Use?: Yes Alcohol type: Beer Alcohol Frequency: Rarely Pt feels they are or have been: No Immunizations Up To Date Tetanus Booster (TDap): Unknown PED Vaccines UTD: No Seasonal Allergies Seasonal Allergies: Yes Current Status Advance Directives: No Communicates: Verbally Primary Language: Turkmen Preferred Spoken Language: Turkmen Is interpretation needed?: No Implanted or Applied Medical D: None Past Medical History Surgeries: Appendectomy, Gallbladder Sleep Apnea, COPD Currently Using CPAP: No (DOESN'T USE CPAP) High Cholesterol, Hypertension Stroke Sexually Transmitted Disease: No HIV/AIDS: No Gastroesophageal Reflux Chronic Back Pain Loss of Vision: Denies Hearing Impairment: Denies Pancreatic Did You Recieve Any Treatments: Yes What Type of Treatment Did You: Chemotherapy Anxiety, Depression Blood Disorders: No Adverse Reaction/Blood Tranf: No (N/A) Family Medical History Cancer, Stroke Review of Systems Constitutional: see HPI, fever, malaise, weakness Physical Exam Physical Exam Vital Signs Vital Signs - First Documented 01/14/21 01/14/21 11:14 18:29 Temp 38.0 Pulse 90 Resp 24 B/P (MAP) 91/53 (66) Pulse Ox 98 O2 Delivery Room Air FiO2 21 Capillary Refill : Less Than 3 Seconds Height, Weight, BMI Height: 5'7.00" Weight: 185lbs. 0.0oz. 83.468241ct; 17.71 BMI Method:Stated General Appearance: No Apparent Distress, Chronically ill, Thin Eyes: Right Eye Normal Inspection, Right Eye PERRL HEENT: PERRL/EOMI, Normal ENT Inspection, Pharynx Normal, Moist Mucous Membranes Neck: Full Range of Motion, Normal Inspection, Non Tender Respiratory: Chest Non Tender, Lungs Clear, Normal Breath Sounds, No Accessory Muscle Use, No Respiratory Distress Cardiovascular: Regular Rate, Rhythm, No Edema, No Gallop, No JVD, No Murmur, Normal Peripheral Pulses Gastrointestinal: Normal Bowel Sounds, No Organomegaly, No Pulsatile Mass, Non Tender, Soft Back: Normal Inspection, No CVA Tenderness, No Vertebral Tenderness Extremity: Normal Capillary Refill, Normal Inspection, Normal Range of Motion, Non Tender, No Calf Tenderness, No Pedal Edema Neurologic/Psychiatric: Alert, Oriented x3, No Motor/Sensory Deficits, Normal Mood/Affect Skin: Normal Color, Warm/Dry Lymphatic: No Adenopathy Results Results/Procedures Labs Laboratory Tests 01/14/21 11:45 01/14/21 20:10 01/15/21 02:00 Patient resulted labs reviewed. Assessment/Plan Admission Diagnosis Assessment: Sepsis Hypotension Altered mental status Pancreatic cancer Immunosuppressed with chemotherapy Plan: ICU IV antibiotics Oncology consult IV fluids Admission Status: Inpatient Order (span 2 midnights) Reason for Inpatient Admission: Sepsis Diagnosis/Problems Diagnosis/Problems (1) Sepsis Status: Acute Qualifiers: Sepsis type: sepsis due to unspecified organism Sepsis acute organ dysfunction status: without acute organ dysfunction Qualified Codes: A41.9 - Sepsis, unspecified organism (2) Fever Status: Acute Qualifiers: Fever type: unspecified Qualified Codes: R50.9 - Fever, unspecified (3) Pancreatic cancer Status: Acute Qualifiers: Pancreatic malignancy location: unspecified Qualified Codes: C25.9 - Malignant neoplasm of pancreas, unspecified JAZMIN NAPOLES DO Jan 14, 2021 18:30
[2021-01-14] MEDS ORDERED: RT-ALBUTEROL/IPRATROPIUM 3 ML (DUONEB) VIAL INH PRN (18:45)
[2021-01-14 20:31] LABS: BUN/CREATININE RATIO 9; CALCIUM 7.1 MG/DL (8.5-10.1); CARBON DIOXIDE 22 MMOL/L (21-32); CHLORIDE 105 MMOL/L (98-107); CREATININE SERUM 0.64 MG/DL (0.60-1.30); GFR ESTIMATED > 60; GLUCOSE 110 MG/DL (70-105); POTASSIUM 3.2 MMOL/L (3.6-5.0); SODIUM 135 MMOL/L (135-145)
[2021-01-14] MEDS: POTASSIUM CL 10MEQ/50ML IVPB 50 ML IV SCH ×4 (20:48→23:53)
[2021-01-14] MEDS ORDERED: diphenhydrAMINE 25 MG TAB (BENADRYL) PO PRN (21:30)
[2021-01-14] MEDS ORDERED: HYDROcodone/APAP 5 MG/325 MG (LORTAB) TAB PO PRN (21:30)
[2021-01-14] MEDS ORDERED: MELATONIN 3 MG TABLET PO PRN (21:30)
[2021-01-14] MEDS ORDERED: fentaNYL INJ 100 MCG/2 ML AMP IVP PRN (21:30)
[2021-01-14] MEDS ORDERED: CALCIUM CARBONATE 500 MG (TUMS) TAB.CHEW PO PRN (21:30)
[2021-01-14] MEDS ORDERED: ONDANSETRON 4 MG/2 ML (SDV) Z0FRAN IVP PRN (21:30)
[2021-01-14] MEDS ORDERED: DOCUSATE SODIUM 100 MG (COLACE) CAP PO PRN (21:30)
[2021-01-14] MEDS ORDERED: ACETAMINOPHEN 500 MG TAB (TYLENOL) PO PRN (21:30)
[2021-01-15] MEDS: NS IV 1000 ML 1,000 ML IV SCH ×2 (01:33→09:42)
[2021-01-15 02:15] LABS: BASOPHILS % (AUTO) 1 % (0-10); EOSINOPHILS % (AUTO) 1 % (0-10); HEMATOCRIT 24 % (40-54); HEMOGLOBIN 7.6 g/dL (13.3-17.7); LYMPHOCYTES # (AUTO) 1.5 10^3/uL (1.0-4.0); LYMPHOCYTES % (AUTO) 50 % (12-44); MEAN CORPUSCULAR HEMOGLOBIN 28 pg (25-34); MEAN CORPUSCULAR HGB CONC 32 g/dL (32-36); MEAN CORPUSCULAR VOLUME 88 fL (80-99); MEAN PLATELET VOLUME 9.5 fL (9.0-12.2); MONOCYTES % (AUTO) 34 % (0-12); NEUTROPHILS # (AUTO) 0.4 10^3/uL (1.8-7.8); NEUTROPHILS % (AUTO) 13 % (42-75); PLATELET COUNT 269 10^3/uL (130-400); WHITE BLOOD COUNT 2.9 10^3/uL (4.3-11.0)
[2021-01-15 02:27] LABS: CHLORIDE 104 MMOL/L (98-107); POTASSIUM 3.6 MMOL/L (3.6-5.0); SODIUM 134 MMOL/L (135-145)
[2021-01-15 02:28] LABS: CALCIUM 7.5 MG/DL (8.5-10.1)
[2021-01-15 02:29] LABS: GLUCOSE 105 MG/DL (70-105)
[2021-01-15 02:30] LABS: CARBON DIOXIDE 22 MMOL/L (21-32)
[2021-01-15 02:32] LABS: PHOSPHORUS 2.6 MG/DL (2.3-4.7)
[2021-01-15 02:33] LABS: CREATININE SERUM 0.62 MG/DL (0.60-1.30); GFR ESTIMATED > 60
[2021-01-15 02:34] LABS: BUN/CREATININE RATIO 10
[2021-01-15 02:35] LABS: MAGNESIUM 1.5 MG/DL (1.6-2.4)
[2021-01-15] MEDS: POTASSIUM CL 10MEQ/50ML IVPB 50 ML IV SCH ×2 (04:49→05:33)
[2021-01-15] MEDS: MAGNESIUM 1 GM/100 ML IVPB 100 ML IV SCH ×2 (04:49→05:32)
[2021-01-15] MEDS: VANCOMYCIN 750 MG/NS 250 ML IVPB IV SCH ×4 (05:37→16:59)
[2021-01-15] MEDS ORDERED: MAGNESIUM 1 GM/100 ML IVPB 100 ML IV SCH (06:00)
[2021-01-15] MEDS ORDERED: POTASSIUM CL 10MEQ/50ML IVPB 50 ML IV SCH (06:00)
[2021-01-15] MEDS ORDERED: KCL 20 MEQ TAB (K-DUR) PO SCH (06:00)
--- NOTE | 2021-01-15 06:20 | Progress Note - Hospitalist ---
Subjective HPI/CC On Admission Date Seen by Provider: Jan 15, 2021 Time Seen by Provider: 10:00 Chief complaint: Altered mental status with fever History of present illness: This is a 60-year-old white male undergoing chemotherapy for pancreatic cancer who presents with altered mental status and hypotension and underwent septic work-up revealing elevated lactic acid responding to aggressive IV fluids. He was placed on broad-spectrum antibiotics but no source of infection noted. At this current time patient feels much better his blood pressure is 109/60 and patient is much improved. Subjective/Events-last exam Pt had an uneventful night Labs remain stable Pain is requiring his home Oxycodone of 5 dose Transferring to fourth floor IV antibiotics maintained Overall doing very well After Dr Bardales saw him he called me and told me he was having word finding issues and ordered MRI brain to r/o CVA Review of Systems General: Fatigue, Malaise Gastrointestinal: Abdominal Pain Focused Exam Lactate Level 01/14/21 11:45: Lactic Acid Level 3.52*H 01/14/21 14:20: Lactic Acid Level 1.51 Objective Exam Vital Signs Vital Signs Date Time Temp Pulse Resp B/P (MAP) Pulse Ox O2 Delivery O2 Flow Rate FiO2 01/16/21 04:05 36.4 90 18 146/70 (95) 100 Room Air 01/14/21 18:29 21 Capillary Refill : Less Than 3 Seconds General Appearance: No Apparent Distress, WD/WN, Chronically ill Respiratory: Lungs Clear Cardiovascular: Regular Rate, Rhythm Neurologic/Psychiatric: Alert, Oriented x3 Results/Procedures Lab Patient resulted labs reviewed. Assessment/Plan Assessment and Plan Assess & Plan/Chief Complaint Assessment: Sepsis Fever Hypotension Altered mental status Pancreatic cancer Immunosuppressed with chemotherapy Confusion Plan: ICU IV antibiotics Oncology consult IV fluids 01/15/21: Transfer to [address] [place] [address] to evaluate for CVA Diagnosis/Problems Diagnosis/Problems (1) Sepsis Status: Acute Qualifiers: Sepsis type: sepsis due to unspecified organism Sepsis acute organ dysfunction status: without acute organ dysfunction Qualified Codes: A41.9 - Sepsis, unspecified organism (2) Fever Status: Acute Qualifiers: Fever type: unspecified Qualified Codes: R50.9 - Fever, unspecified (3) Pancreatic cancer Status: Acute Qualifiers: Pancreatic malignancy location: unspecified Qualified Codes: C25.9 - Malignant neoplasm of pancreas, unspecified ELIEZER BOWMAN DO Jan 15, 2021 06:20
[2021-01-15] MEDS: NICOTINE 21 MG (NICODERM) PATCH TD SCH (07:58)
[2021-01-15] MEDS: SENNA W/DOCUSATE (SENOKOT S) TABLET PO SCH ×2 (07:58→20:42)
[2021-01-15] MEDS ORDERED: LIPASE/AMYLASE/PROTEASE (PANCRELIPASE) 5,000 UNITS CAP PO SCH (13:30)
[2021-01-15] MEDS ORDERED: OXYC5TAB PO (15:15)
[2021-01-15] MEDS ORDERED: BUPR150T14 PO (15:15)
[2021-01-15] MEDS ORDERED: PANT40TA52 PO (15:15)
[2021-01-15] MEDS ORDERED: LIPA1CAP2 PO ×2 (15:15)
[2021-01-15] MEDS ORDERED: PROM25TA14 PO (15:15)
[2021-01-15] MEDS ORDERED: CHOL210P2 PO (15:15)
[2021-01-15] MEDS ORDERED: DICY10CA12 PO (15:15)
[2021-01-15] MEDS ORDERED: TRZ50T PO (15:15)
[2021-01-15] MEDS ORDERED: MORP-68 PO (15:15)
[2021-01-15] MEDS ORDERED: POTA99TA21 PO (15:18)
[2021-01-15] MEDS ORDERED: MEGE20TA3 PO (15:31)
[2021-01-15] MEDS ORDERED: ASPI-1238 PO (15:31)
[2021-01-15] MEDS: cefTRIAXone 2,000 MG/SWFI 20 ML IV PUSH IV SCH ×2 (16:40)
[2021-01-15] MEDS ORDERED: LIPASE/AMYLASE/PROTEASE (PANCRELIPASE) 5,000 UNITS CAP PO PRN (17:15)
[2021-01-15] MEDS: LIPASE/AMYLASE/PROTEASE (PANCRELIPASE) 5,000 UNITS CAP PO SCH (18:21)
[2021-01-15] MEDS: ALPRAZolam 0.25 MG (XANAX) TAB PO PRN (18:26)
--- NOTE | 2021-01-15 19:34 | CONSULTATION REPORT ---
DATE OF SERVICE: 01/15/2021 The patient is admitted to room 409. IMPRESSION: 1. A 60-year-old male admitted with a history of low-grade fever and not feeling well. He was seen at [facility] a few days before with mental status changes with a negative workup. 2. At the time of evaluation at [facility] in House, he was found to be hypotensive with a temperature of 100.8 degree Fahrenheit. He was given IV fluids with improvement in blood pressure and admitted for possible sepsis syndrome, although no definite source was identified. 3. Previous history of stage III pancreatic adenocarcinoma, status post Whipple procedure complicated by a postoperative bile leak, which healed over time. 4. Currently on adjuvant chemotherapy with mFOLFIRINOX regimen and has completed 9 of planned 12 cycles. 5. 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 6. History of coronary artery disease and peripheral vascular disease requiring bilateral carotid endarterectomies as well as stents. RECOMMENDATIONS: 1. Continue IV hydration and supportive measures as you are doing. 2. Continue broad-spectrum antibiotics initially and wean off as tolerated. 3. Obtain an MRI of the brain with and without contrast to rule out a new CVA because of his mental status changes and word finding difficulties. 4. We will hold further chemotherapy until his current symptoms have improved. 5. We will follow the patient with you. BRIEF HISTORY: The patient is a 60-year-old male with painless jaundice diagnosed in mid 2019. He had a biliary stent placed and completed a cholecystectomy. His lab abnormalities improved, eventually had the pancreatic stent removed. Soon after this, he was noted to have a bilirubin level of 11 and transferred to [facility]. He had a repeat ERCP with stent placement and an endoscopic ultrasound showed a pancreatic mass, which was biopsied and suspicious for adenocarcinoma. He underwent a Whipple procedure on 06/14/2020 with a diagnosis of stage III pancreatic cancer with multiple lymph node involvement as well as peripancreatic tissue involvement. Postoperatively, he had a wound infection and a pancreatic leak requiring debridement, wound VAC placement, antibiotic therapy, TPN support, etc., which required a significant time to recover from. Once he recovered adequately, adjuvant chemotherapy with FOLFIRINOX regimen for 12 cycles was recommended and he has completed 9 of planned 12 cycles of chemotherapy so far. PAST MEDICAL HISTORY: Significant for pancreatic cancer as mentioned above and the treatment for it. He has history of hypertension for several years. Coronary artery disease and peripheral arterial disease requiring stents in both lower extremities as well as bilateral carotid endarterectomies. Following left carotid endarterectomy, he had a CVA in 01/2018, but had recovered most of the function. He has history of COPD. PAST SURGICAL HISTORY: Include bilateral inguinal hernia repairs 15 to 20 years ago. Bilateral lower extremity stents in 2008, bilateral carotid endarterectomies in 2017, cholecystectomy in 2019 with biliary stent placement and a Whipple procedure in late 2019. SOCIAL HISTORY: The patient is single and lives in [place] with his fibrendae. He has a 31-year-old daughter who lives in [place], but no significant contact with her over the last two years. He has been on disability following the CVA in 2017. 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 Has [id number] history of tobacco use and is continuing to smoke daily. He has history of fairly significant history of alcohol use, but has not been drinking regularly since starting on chemotherapy. No history of recreational drug use. FAMILY HISTORY: Significant for his mother, who was diagnosed with kidney cancer while in her 60s. Maternal grandfather with an unknown malignancy. Maternal aunt also with an unknown malignancy. Father had coronary artery disease and CVA. Brother with a history of asthma. Rest of the family history is unremarkable. PHYSICAL EXAMINATION: GENERAL: Today showed an elderly male, awake, and trying to answer questions, but has difficulty finding words. VITAL SIGNS: His temperature was 35.6 degree centigrade, pulse rate of 67, respirations 16, blood pressure 139/90 and oxygen saturation 100% on room air. HEENT: Normocephalic, extraocular muscles intact, and oral mucosa moist. NECK: Supple, with no JVD. No cervical, supraclavicular or axillary lymphadenopathy palpable. CHEST: Symmetrical with a port. LUNGS: With slightly diminished breath sounds bilaterally without any wheezes or rales. CARDIOVASCULAR: Regular in rate and rhythm. No murmurs or gallops heard. ABDOMEN: Soft, nontender with no hepatosplenomegaly or other masses palpable. EXTREMITIES: Showed no edema. NEUROLOGIC: Only significant for the word finding difficulty. The patient is moving all four extremities without problem. LABORATORY DATA: CBC done today showed WBC 2.9, hemoglobin 7.6, platelet count 269,000 with neutrophil count 0.4, lymphocyte count 1.5 and monocyte count 1.0. BMP done today showed normal electrolytes except sodium level of 134. BUN was 6 and creatinine 0.62 with GFR more than 60 mL per minute. Serum magnesium level was 1.5. UA done yesterday was unremarkable with culture pending. Influenza and COVID screening done yesterday was negative. Thank you for allowing me to participate in this patient's care. I will follow the patient with you and make appropriate recommendations. Job ID: [id number] DocumentID: [id number] Dictated Date: 01/15/2021 16:15:45 Rat Poisoner Date: 01/15/2021 19:33:31 Dictated By: GAL STROUD MD MTDD
[2021-01-16] MEDS ORDERED: TROUGH ORDER-PHARMACY XX NR (04:00)
[2021-01-16 05:25] LABS: BASOPHILS % (AUTO) 1 % (0-10); EOSINOPHILS # (AUTO) 0.2 10^3/uL (0.0-0.3); EOSINOPHILS % (AUTO) 5 % (0-10); HEMATOCRIT 24 % (40-54); LYMPHOCYTES % (AUTO) 57 % (12-44); MEAN CORPUSCULAR HEMOGLOBIN 29 pg (25-34); MEAN CORPUSCULAR HGB CONC 33 g/dL (32-36); MEAN CORPUSCULAR VOLUME 87 fL (80-99); MEAN PLATELET VOLUME 9.5 fL (9.0-12.2); MONOCYTES # (AUTO) 0.9 10^3/uL (0.0-1.0); MONOCYTES % (AUTO) 25 % (0-12); NEUTROPHILS # (AUTO) 0.4 10^3/uL (1.8-7.8); NEUTROPHILS % (AUTO) 11 % (42-75); PLATELET COUNT 350 10^3/uL (130-400); WHITE BLOOD COUNT 3.4 10^3/uL (4.3-11.0)
[2021-01-16 05:45] LABS: ALANINE AMINOTRANSFERASE 18 U/L (0-55); ALBUMIN 2.3 GM/DL (3.2-4.5); ALKALINE PHOSPHATASE 222 U/L (40-136); BILIRUBIN,TOTAL 0.2 MG/DL (0.1-1.0); BUN/CREATININE RATIO 5; CALCIUM 7.9 MG/DL (8.5-10.1); CARBON DIOXIDE 24 MMOL/L (21-32); CHLORIDE 104 MMOL/L (98-107); CREATININE SERUM 0.58 MG/DL (0.60-1.30); GFR ESTIMATED > 60; GLUCOSE 89 MG/DL (70-105); SODIUM 136 MMOL/L (135-145); TOTAL PROTEIN 4.5 GM/DL (6.4-8.2)
--- NOTE | 2021-01-16 05:50 | PM&R Progress Note ---
Subjective HPI/CC On Admission Date Seen by Provider: Jan 16, 2021 Chief complaint: Altered mental status with fever History of present illness: This is a 60-year-old white male undergoing chemotherapy for pancreatic cancer who presents with altered mental status and hypotension and underwent septic work-up revealing elevated lactic acid resp onding to aggressive IV fluids. He was placed on broad-spectrum antibiotics but no source of infection noted. At this current time patient feels much better his blood pressure is 109/60 and patient is much improved. Focused Exam Lactate Level 01/14/21 11:45: Lactic Acid Level 3.52*H 01/14/21 14:20: Lactic Acid Level 1.51 Objective Exam Vital Signs Vital Signs Date Time Temp Pulse Resp B/P (MAP) Pulse Ox O2 Delivery O2 Flow Rate FiO2 01/16/21 04:05 36.4 90 18 146/70 (95) 100 Room Air 01/14/21 18:29 21 Capillary Refill : Less Than 3 Seconds General Appearance: No Apparent Distress, WD/WN, Chronically ill HEENT: PERRL/EOMI, Normal ENT Inspection, Pharynx Normal, Moist Mucous Membranes Neck: Full Range of Motion, Normal Inspection, Non Tender Respiratory: Lungs Clear Cardiovascular: Regular Rate, Rhythm Gastrointestinal: Normal Bowel Sounds, No Organomegaly, No Pulsatile Mass, Non Tender, Soft Back: Normal Inspection, No CVA Tenderness, No Vertebral Tenderness Extremity: Normal Capillary Refill, Normal Inspection, Normal Range of Motion, Non Tender, No Calf Tenderness, No Pedal Edema Neurologic/Psychiatric: Alert, Oriented x3 Skin: Normal Color, Warm/Dry Lymphatic: No Adenopathy Results/Procedures Lab Laboratory Tests 01/16/21 05:15 Patient resulted labs reviewed. FIM Transfers Therapy Code Descriptions/Definitions Functional [place] Measure: 0=Not Assessed/NA 4=Minimal Assistance 1=Total Assistance 5=Supervision or Setup 2=Maximal Assistance 6=Modified [place] 3=Moderate Assistance 7=Complete IndependenceSCALE: Activities may be completed with or without assistive devices. 4-Ynylqdrngm-kvpsfyg completes the activity by him/herself with no assistance from a helper. 5-Set-up or Clean-up Assistance-helper sets up or cleans up; patient completes activity. [employer] assists only prior to or following the activity. 4-Supervision or Touching Assistance-helper provides verbal cues and/or touching/steadying and/or contact guard assistance as patient completes activity. Assistance may be provided throughout the activity or intermittently. 3-Partial/Moderate Assistance-helper does LESS THAN HALF the effort. [employer] lifts, holds or supports trunk or limbs, but provides less than half the effort. 2-Substantial/Maximal Assistance-helper does MORE THAN HALF the effort. [employer] lifts or holds trunk or limbs and provides more than half the effort. 3-Pumcamruy-reweca does ALL the effort. Patient does none of the effort to complete the activity. Or, the assistance of 2 or more helpers is required for the patient to complete the activity. If activity was not attempted, code reason: 7-Patient Refused. 9-Not Applicable-not attempted and the patient did not perform the activity before the current illness, exacerbation or injury. 10-Not Attempted due to Environmental Limitations-(lack of equipment, weather restraints, etc.). 88-Not Attempted due to Medical Conditions or Safety Concerns. Assessment/Plan Assessment and Plan Assess & Plan/Chief Complaint Assessment: Sepsis Fever Hypotension Altered mental status Pancreatic cancer Immunosuppressed with chemotherapy Confusion Plan: ICU IV antibiotics Oncology consult IV fluids 01/15/21: Transfer to [address] [place] [address] to evaluate for CVA (1) Sepsis Status: Acute Qualifiers: Sepsis type: sepsis due to unspecified organism Sepsis acute organ dysfunction status: without acute organ dysfunction Qualified Codes: A41.9 - Sepsis, unspecified organism (2) Fever Status: Acute Qualifiers: Fever type: unspecified Qualified Codes: R50.9 - Fever, unspecified (3) Pancreatic cancer Status: Acute Qualifiers: Pancreatic malignancy location: unspecified Qualified Codes: C25.9 - Malignant neoplasm of pancreas, unspecified ELIEZER BOWMAN DO Jan 16, 2021 05:49
--- NOTE | 2021-01-16 05:51 | Progress Note - Hospitalist ---
Subjective HPI/CC On Admission Date Seen by Provider: Jan 16, 2021 Time Seen by Provider: 11:30 Chief complaint: Altered mental status with fever History of present illness: This is a 60-year-old white male undergoing chem otherapy for pancreatic cancer who presents with altered mental status and hypotension and underwent septic work-up revealing elevated lactic acid responding to aggressive IV fluids. He was placed on broad-spectrum antibiotics but no source of infection noted. At this current time patient feels much better his blood pressure is 109/60 and patient is much improved. Subjective/Events-last exam Patient doing pretty well Updated him on no evidence of any acute stroke Hemoglobin 8.0 PT and OT will be ordered Check meds and labs Review of Systems Neurological: Change in speech, Confusion Focused Exam Lactate Level 01/14/21 11:45: Lactic Acid Level 3.52*H 01/14/21 14:20: Lactic Acid Level 1.51 Objective Exam Vital Signs Vital Signs Date Time Temp Pulse Resp B/P (MAP) Pulse Ox O2 Delivery O2 Flow Rate FiO2 01/16/21 18:54 Room Air 01/16/21 16:58 36.4 76 18 110/56 (74) 99 01/14/21 18:29 21 Capillary Refill : Less Than 3 Seconds General Appearance: No Apparent Distress, WD/WN, Chronically ill, Thin Respiratory: Lungs Clear Cardiovascular: Regular Rate, Rhythm Neurologic/Psychiatric: Alert, Oriented x3 Results/Procedures Lab Laboratory Tests 01/16/21 05:15 Patient resulted labs reviewed. Assessment/Plan Assessment and Plan Assess & Plan/Chief Complaint Assessment: Sepsis Fever Hypotension Altered mental status Pancreatic cancer Immunosuppressed with chemotherapy Confusion Plan: ICU IV antibiotics Oncology consult IV fluids 01/15/21: Transfer to [address] [place] [address] to evaluate for CVA 01/16/2021: Speech therapy eval Monitor closely Diagnosis/Problems Diagnosis/Problems (1) Sepsis Status: Acute Qualifiers: Sepsis type: sepsis due to unspecified organism Sepsis acute organ dysfunction status: without acute organ dysfunction Qualified Codes: A41.9 - Sepsis, unspecified organism (2) Fever Status: Acute Qualifiers: Fever type: unspecified Qualified Codes: R50.9 - Fever, unspecified (3) Pancreatic cancer Status: Acute Qualifiers: Pancreatic malignancy location: unspecified Qualified Codes: C25.9 - Malignant neoplasm of pancreas, unspecified ELIEZER BOWMAN DO Jan 16, 2021 05:51
[2021-01-16] MEDS ORDERED: MAGNESIUM 1 GM/100 ML IVPB 100 ML IV ONE (06:00)
[2021-01-16] MEDS: VANCOMYCIN 750 MG/NS 250 ML IVPB IV SCH ×2 (06:21)
[2021-01-16] MEDS: POTASSIUM CL 10MEQ/50ML IVPB 50 ML IV SCH ×4 (07:54→10:41)
[2021-01-16] MEDS: NICOTINE PATCH REMOVAL TP SCH (08:03)
[2021-01-16] MEDS: LIPASE/AMYLASE/PROTEASE (PANCRELIPASE) 5,000 UNITS CAP PO SCH ×3 (08:03→17:23)
[2021-01-16] MEDS: SENNA W/DOCUSATE (SENOKOT S) TABLET PO SCH ×2 (08:04→19:25)
[2021-01-16] MEDS: NICOTINE 21 MG (NICODERM) PATCH TD SCH (08:04)
[2021-01-16] MEDS ORDERED: ACETAMINOPHEN 325 MG TABLET PO PRN (10:00)
[2021-01-16] MEDS ORDERED: GADOBUTROL 7.5 MMOL/7.5 ML (GADAVIST) VIAL IV ONE (10:00)
--- NOTE | 2021-01-16 10:19 | Diagnostic Imaging Report ---
PROCEDURE: MR imaging of the brain with and without contrast. TECHNIQUE: Multiplanar, multisequence MR imaging of the brain was performed with and without contrast. INDICATION: Altered mental status. Previous stroke. Pancreatic cancer. COMPARISON: CT head without contrast 01/14/2021. FINDINGS: Moderate generalized cerebral and cerebellar parenchymal volume loss. Moderate nonspecific T2 hyperintensities in the supratentorial white matter compatible with chronic small vessel ischemic change. No abnormal intracranial enhancement. Chronic encephalomalacia consistent with a chronic infarct in the posterior left MCA distribution. No restricted water diffusion to suggest an acute infarct. No hemosiderin deposition outside the encephalomalacia. Normal morphology including the major midline structures, sella, posterior fossa and cerebellar pontine angle. No hydrocephalus or extra-axial fluid collections. Normal intracranial flow voids. The orbits are unremarkable on this nondedicated exam. Mild mucosal thickening in the ethmoid sinuses. The mastoids are clear. IMPRESSION: 1. No acute intracranial MRI findings. 2. Chronic infarct in the posterior left MCA distribution. 3. Age-appropriate volume loss and chronic small vessel ischemic change. 4. Mild mucosal thickening in the ethmoid sinuses. Dictated by: Dictated on workstation # [id number]
--- NOTE | 2021-01-16 12:10 | ST Cognitive Linguistic Eval ---
Speech Evaluation-General Medical Diagnosis Fever, Sepsis, AMS Onset Date: Jan 14, 2021 Therapy Diagnosis Therapy Diagnosis: Cognitive-communication, Expressive Aphasia Precautions Precautions/Isolations: Standard Precautions Referral Referring Physician: Dr. Napoles Medical History Pertinent Medical History: CVA, HTN Social History Current Living Status: Significant Other Speech PLF-Current Status Prior Level of Function Patient lives with his fiance where he was independent for his daily needs. Patient is known to me as an outpatient when he received therapy for his expressive aphasia due to CVA. Subjective Patient was pleasant with the evaluation which was completed at bedside. The patient's expressive aphasia is at a moderate level. Confusion is noted for answering questions related to his health and current situation. Language Eval: Auditory Comprehends Simple Yes/No Ques: Functional Indent/Objects Multiple [place]: Functional Ident/Pics in Multiple [place]: Functional Follows 1-Step Commands: Functional Comprehension is adequate for 80% of requests. Language Eval: Verbal Language Completes Spontaneous Greeting: Functional Produces Auto, Serial Info: Mild Imitates Simple Words/Phrases: Functional Word Finding: Moderate Requests Basic Needs: Moderate States Basic Personal Info: Moderate Expresses Complex Ideas: Moderate Objective Cognitive Domain Attention: WNL Memory: Moderate Problem Solving: Moderate Executive Functions: Moderate Composite Severity Rating: Moderate Objective Formal/Standardized Tests SLUMS portions, informal speech tasks, patient interview, chart review Results Patient is moderately disordered with expressive speech and memory. Patient is confused with regards to self and temporal orientation. Oral Motor/Speech Production Patient exhibits moderate expressive aphasia, however production of speech is within normal range of function Impression Patient is a pleasant 60 y/o male who was admitted to the hospital via ED due to AMS with confusion. Patient and fiance thought he had another stroke, however that has not been found to be the case. The patient received outpatient therapy in the past two years due to expressive aphasia. The patient has recently been diagnosed with pancreatic cancer for which he receives treatments. Patient's evaluation indicates he is confused and speech is at a moderate deficit level. Patient will receive skilled ST to address these deficits. Speech Short Term Goals Short Term Goals Short Term Goals 1) Patient will complete memory tasks related to himself at 75% or greater with minimal cuing. 2) Patient will complete expressive language tasks in order to effectively communicate at 75% or greater with minimal cues. Speech Fpc Goals Focuser Goals Patient will improve his cognitive-communication status in order to complete daily living tasks with minimal assist. Speech-Plan Patient/Family Goals Patient/Family Goals: Patient plans on returning to his home where he lives with his fiance. Treatment Plan Speech Therapy Treatment Plan: Continue Plan of Care Treatment Duration: Jan 23, 2021 Frequency: 4 times per week (Patient will receive skilled ST 4-5x per week) Estimated Hrs Per Day: .25 hour per day Rehab Potential: Fair Barriers to Learning: Patient's current medical status and CVA history Pt/Family Agrees to Plan: Yes Safety Risks/Education Teaching Recipient: Patient Teaching Methods: Discussion Response to Teaching: Verbalize Understanding, Reinforcement Needed Education Topics Provided: Safety within his room, communication of wants/needs Time Speech Therapy Time In: 11:30 Speech Therapy Time Out: 11:45 Total Billed Time: 15 Billed Treatment Time 1, MINE DE JESUS Yes GENEVA GARG Jan 16, 2021 12:10
--- NOTE | 2021-01-16 13:49 | Occupational Therapy Eval ---
OT Evaluation-General/PLF Medical Diagnosis Admission Date Jan 14, 2021 at 15:59 Medical Diagnosis: Fever, Sepsis, AMS Onset Date: Jan 14, 2021 Therapy Diagnosis Therapy Diagnosis: Decreased ADL status Height/Weight Height (Feet): 5 Height (Inches): 7.00 Weight (Pounds): 185 Weight (Ounces): 0.0 Precautions Precautions/Isolations: Standard Precautions Referral Physician: Dony Referral Reason: Activity Tolerance, Self Care, Evaluation/Treatment, Stren gthening/ROM Medical History Pertinent Medical History: CVA, HTN Additional Medical History COPD, HTN, CVA< GERD, CBP, chemo, anx/ depression Current History AMS/ hypotension, increased lactic acid and ICU admission. Reviewed History: Yes Social History Home: Single Level Current Living Status: Significant Other ADL-Prior Level of Function SCALE: Activities may be completed with or without assistive devices. 5-Tvcuxckwmc-fygzbeb completes the activity by him/herself with no assistance from a helper. 5-Set-up or Clean-up Assistance-helper sets up or cleans up; patient completes activity. [place] assists only prior to or following the activity. 4-Supervision or Touching Assistance-helper provides verbal cues and/or touching/steadying and/or contact guard assistance as patient completes activity. Assistance may be provided throughout the activity or intermittently. 3-Partial/Moderate Assistance-helper does LESS THAN HALF the effort. [place] l ifts, holds or supports trunk or limbs, but provides less than half the effort. 2-Substantial/Maximal Assistance-helper does MORE THAN HALF the effort. [place] lifts or holds trunk or limbs and provides more than half the effort. 5-Bgchosppn-tdiarm does ALL the effort. Patient does none of the effort to complete the activity. Or, the assistance of 2 or more helpers is required for t he patient to complete the activity. If activity was not attempted, code reason: 7-Patient Refused. 9-Not Applicable-not attempted and the patient did not perform the activity before the current illness, exacerbation or injury. 10-Not Attempted due to Environmental Limitations-(lack of equipment, weather restraints, etc.). 88-Not Attempted due to Medical Conditions or Safety Concerns. ADL PLOF Comments Expresses IND without use of AE at home. Self Care: Independent Functional Cognition: Independent DME/Equipment: Bath Chair, Shower OT Current Status Subjective Pt AxO, upright in bed. Pt's food is in front of pt, agrees to get OOB to complete feeding tasks. Pt agrees to tx. Pt denies pain. Mental Status/Objective Patient Orientation: Person, Place, Situation Attachments: IV Current Glasses/Contacts: Yes Hearing Aids: No Dentures/Partials: Yes Hand Dominance: Right Upper Extremity ROM WLF BUE Upper Extremity Coordination WLF BUE Upper Extremity Sensation WLF BUE Upper Extremity Strength WLF BUE (4/5) ADL-Treatment Eating (QC): 6 Oral Hygiene (QC): 3 ( assists at this time.) Toileting Hygiene (QC): 6 (per pt/ .) Other Treatments Pt educated on OT role/ purpose. Agrees to OOB tasks. Supine to sit SBA, ambulates to chair without AE SBA. Pt completes sit with control. Completes MMT/ ROM WFL, then completes 2-6 reps bilaterally of red theraband ex. Pt expresses weak, but WFL as far as what he was at home, expresses PLOF. Pt and educated on the importance of movement/ use of theraband. Pt denies needs, call light in reach, no concerns upon self-care upon d/c. D/c at this time as is at PLOF. Education OT Patient Education: Correct positioning, Exercise program, Home exercise program, Instructions to caregiver, Purpose of tx/functional activities, Safety issues Teaching Recipient: Patient Teaching Methods: Demonstration, Discussion Response to Teaching: Verbalize Understanding, Return Demonstration OT Retirement Goals International Relations Professor Goals 1=Demonstrate adherence to instructed precautions during ADL tasks. 2=Patient will verbalize/demonstrate understanding of assistive devices/modifications for ADL. 3=Patient will improve strength/tolerance for activity to enable patient to perform ADL's. OT Education/Plan Problem List/Assessment Assessment: No Skilled OT Needs ID'd Discharge Recommendations Plan/Recommendations: Discharge/Goals Met Therapy Discharge Recommendati: Home & Family Treatment Plan/Plan of Care Treatment,Training & Education: Yes Patient would benefit from OT for education, treatment and training to promote independence in ADL's, mobility, safety and/or upper extremity function for ADL's. Plan of Care: OTHER (eval and d/c) Treatment Duration: Jan 16, 2021 Frequency: 1 time per week (eval only) Rehab Potential: Fair Time/GCodes Start Time: 12:57 Stop Time: 13:12 Total Time Billed (hr/min): 15 Billed Treatment Time 1, EVM (15) d/c. FRANCISCA BARNETT OTR Jan 16, 2021 13:48
[2021-01-16] MEDS: VANCOMYCIN INJECTION 1,000 MG in NS (IVPB) 250 ML IV SCH (13:58)
--- NOTE | 2021-01-16 15:11 | Physical Therapy Evaluation ---
PT Evaluation-General Medical Diagnosis Admission Date Jan 14, 2021 at 15:59 Medical Diagnosis: Fever, Sepsis, AMS Onset Date: Jan 14, 2021 Therapy Diagnosis Therapy Diagnosis: debility/weakness Height/Weight Height (Feet): 5 Height (Inches): 7.00 Weight (Pounds): 185 Weight (Ounces): 0.0 Precautions Precautions/Isolations: Fall Prevention, Standard Precautions Referral Physician: Dony Reason for Referral: Evaluation/Treatment Medical History Pertinent Medical History: COPD, CVA, HTN, Smoking Additional Medical History pancreatic cancer Current History ER secondary to confusion and fever Reviewed History: Yes Social History Home: Single Level Current Living Status: Significant Other Prior Prior Level of Function SCALE: Activities may be completed with or without assistive devices. 4-Mfiksxqjpy-hnpiufz completes the activity by him/herself with no assistance from a helper. 5-Set-up or Clean-up Assistance-helper sets up or cleans up; patient completes activity. [place] assists only prior to or following the activity. 4-Supervision or Touching Assistance-helper provides verbal cues and/or touching/steadying and/or contact guard assistance as patient completes activity. Assistance may be provided throughout the activity or intermittently. 3-Partial/Moderate Assistance-helper does LESS THAN HALF the effort. [place] lifts, holds or supports trunk or limbs, but provides less than half the effort. 2-Substantial/Maximal Assistance-helper does MORE THAN HALF the effort. [place] lifts or holds trunk or limbs and provides more than half the effort. 1-Hdgrwnmxm-tdpgyb does ALL the effort. Patient does none of the effort to complete the activity. Or, the assistance of 2 or more helpers is required for the patient to complete the activity. If activity was not attempted, code reason: 7-Patient Refused. 9-Not Applicable-not attempted and the patient did not perform the activity before the current illness, exacerbation or injury. 10-Not Attempted due to Environmental Limitations-(lack of equipment, weather restraints, etc.). 88-Not Attempted due to Medical Conditions or Safety Concerns. Bed Mobility: 6 Transfers (B,C,W/C): 6 Gait: 6 Stairs: 6 Indoor Mobility (Ambulation): Independent Stairs: Independent Prior Devices Use: None PT Evaluation-Current Subjective Patient agrees to PT. No c/o. Objective Patient Orientation: Normal For Age Attachments: IV ROM/Strength ROM Lower Extremities bilateral LE WFL Strength Lower Extremities 4/5 grossly bilateral LE Integumentary/Posture Bowel Incontinence: No Bladder Incontinence: No Posture WFL Neuromuscular (Tone, Coordination, Reflexes) grossly intact Sensory Vision: Wears Glasses Hearing: Functional Hand Dominance: Right Transfers Roll Left to Right (QC): 6 Sit to Lying (QC): 6 Lying to Sitting/Side of Bed(Q: 6 Sit to Stand (QC): 6 Gait Does the Patient Walk?: Yes Mode of Locomotion: Walk Anticipated Mode of Locomotion: Walk Walk 10 feet (QC): 6 Walk 50 ft with 2 Turns(QC): 6 Walk 150 ft (QC): 6 Distance: 500' Gait Assistive Device: None Comments/Gait Description safe and functional with on deviation Balance Sitting Static: Normal Sitting Dynamic: Normal Standing Static: Normal Standing Dynamic: Normal Assessment/Needs 60 y.o. male, is currently at independent [facility] with all gross motor skills and does not require skilled therapy intervention. Rehab Potential: Fair PT Plan Treatment/Plan Treatment Plan: Discontinue PT, goals met Treatment Duration: Jan 16, 2021 Frequency: 1 time per week Estimated Hrs Per Day: .25 hour per day Patient and/or Family Agrees t: Yes Discharge Recommendations Therapy Discharge Recommendati: Home & Family Time/GCodes Time In: 1441 Time Out: 1456 Total Billed Treatment Time: 15 Total Billed Treatment 1 visit EVMod 15 min KLARISSA DHALIWAL PT Jan 16, 2021 15:11
[2021-01-16] MEDS: cefTRIAXone 2,000 MG/SWFI 20 ML IV PUSH IV SCH ×2 (15:47)
[2021-01-16] MEDS: ALPRAZolam 0.25 MG (XANAX) TAB PO PRN (15:51)
--- NOTE | 2021-01-16 18:39 | Progress Note ---
Standard Progress Note Progress Notes/Assess & Plan Date Seen by a Provider: Jan 16, 2021 Time Seen by a Provider: 18:35 Progress/Assessment & Plan Mr. Mendez is a 60-year-old male with history of stage III pancreatic adenocarcinoma, status post Whipple procedure undergoing adjuvant chemotherapy with FOLFIRINOX regimen. Patient was admitted to the hospital with mental status changes and a fever with hypotension. He was initially hydrated aggressively with normalization of blood pressure and started on broad-spectrum antibiotic therapy for possible sepsis as he was neutropenic from the chemotherapy. Yesterday patient still had confusion and word finding difficulties. An MRI of the head was done earlier today which showed age- related changes and a previous CVA but no acute changes. Today he is feeling much better and talking appropriately. He ambulated in the hallway with physical therapy without problems. No temperature spikes or hypotension. Eating better and feeling stronger. Continue current medical management and discharge home when stable medically. Patient has a follow-up appointment scheduled for next week at the cancer center and I advised him to keep this. He has completed 9 of 12 planned cycles of chemotherapy. Because of his performance status and side effects, I would discussed the option of stopping the chemotherapy and continuing surveillance. Focused Exam Lactate Level 01/14/21 11:45: Lactic Acid Level 3.52*H 01/14/21 14:20: Lactic Acid Level 1.51 GAL STROUD Jan 16, 2021 18:39
[2021-01-16] MEDS ORDERED: ALPRAZolam 0.25 MG (XANAX) TAB PO PRN (20:00)
[2021-01-16] MEDS ORDERED: PROMETHAZINE 25 MG (PHENERGAN) TAB PO PRN (20:00)
[2021-01-16] MEDS ORDERED: DICYCLOMINE 10 MG (BENTYL) CAP PO PRN (20:00)
[2021-01-16] MEDS ORDERED: traZODone 50 MG (DESYREL) TAB PO PRN (20:00)
[2021-01-16] MEDS ORDERED: traZODone 150 MG (DESYREL) TABLET PO PRN (20:15)
[2021-01-16] MEDS ORDERED: LIPASE/AMYLASE/PROTEASE (PANCRELIPASE) 5,000 UNITS CAP PO PRN (20:30)
[2021-01-16] MEDS: MEGESTROL 40 MG (MEGACE) TAB PO SCH (20:32)
[2021-01-16] MEDS: morphine ER 15 MG (MS CONTIN) TAB PO SCH (20:32)
[2021-01-16] MEDS ORDERED: NON-FORMULARY MEDICATION 1 EA EA (Megestrol Acetate 20 MG) PO SCH (21:00)
[2021-01-16] MEDS ORDERED: NON-FORMULARY MEDICATION 1 EA EA (Escitalopram Oxalate 20 MG) PO SCH (21:00)
[2021-01-17] MEDS: VANCOMYCIN INJECTION 1,000 MG in NS (IVPB) 250 ML IV SCH (03:00)
--- NOTE | 2021-01-17 05:58 | Progress Note - Hospitalist ---
Subjective HPI/CC On Admission Date Seen by Provider: Jan 17, 2021 Chief complaint: Altered mental status with fever History of present illness: This is a 60-year-old white male undergoing chemotherapy for pancreatic cancer who presents with altered mental status and hypotension and underwent septic work-up revealing elevated lactic acid resp onding to aggressive IV fluids. He was placed on broad-spectrum antibiotics but no source of infection noted. At this current time patient feels much better his blood pressure is 109/60 and patient is much improved. Focused Exam Lactate Level 01/14/21 14:20: Lactic Acid Level 1.51 Objective Exam Vital Signs Vital Signs Date Time Temp Pulse Resp B/P (MAP) Pulse Ox O2 Delivery O2 Flow Rate FiO2 01/17/21 11:24 36.1 71 18 101/57 (72) 97 Room Air 01/14/21 18:29 21 Capillary Refill : Less Than 3 Seconds Results/Procedures Lab Laboratory Tests 01/17/21 06:20 Patient resulted labs reviewed. Assessment/Plan Assessment and Plan Assess & Plan/Chief Complaint Assessment: Sepsis Fever Hypotension Altered mental status Pancreatic cancer Immunosuppressed with chemotherapy Confusion Plan: ICU IV antibiotics Oncology consult IV fluids 01/15/21: Transfer to [address] [place] [address] to evaluate for CVA 01/16/2021: Speech therapy eval Monitor closely Diagnosis/Problems Diagnosis/Problems (1) Sepsis Status: Acute Qualifiers: Sepsis type: sepsis due to unspecified organism Sepsis acute organ dysfunction status: without acute organ dysfunction Qualified Codes: A41.9 - Sepsis, unspecified organism (2) Fever Status: Acute Qualifiers: Fever type: unspecified Qualified Codes: R50.9 - Fever, unspecified (3) Pancreatic cancer Status: Acute Qualifiers: Pancreatic malignancy location: unspecified Qualified Codes: C25.9 - Malignant neoplasm of pancreas, unspecified ELIEZER BOWMAN DO Jan 17, 2021 05:58
[2021-01-17 06:29] LABS: BASOPHILS % (AUTO) 1 % (0-10); EOSINOPHILS # (AUTO) 0.3 10^3/uL (0.0-0.3); EOSINOPHILS % (AUTO) 5 % (0-10); HEMATOCRIT 22 % (40-54); HEMOGLOBIN 7.1 g/dL (13.3-17.7); LYMPHOCYTES # (AUTO) 3.1 10^3/uL (1.0-4.0); LYMPHOCYTES % (AUTO) 56 % (12-44); MEAN CORPUSCULAR HEMOGLOBIN 28 pg (25-34); MEAN CORPUSCULAR HGB CONC 32 g/dL (32-36); MEAN CORPUSCULAR VOLUME 87 fL (80-99); MEAN PLATELET VOLUME 9.2 fL (9.0-12.2); MONOCYTES # (AUTO) 1.1 10^3/uL (0.0-1.0); MONOCYTES % (AUTO) 20 % (0-12); NEUTROPHILS % (AUTO) 17 % (42-75); PLATELET COUNT 369 10^3/uL (130-400); WHITE BLOOD COUNT 5.5 10^3/uL (4.3-11.0)
[2021-01-17 06:59] LABS: ALBUMIN 2.3 GM/DL (3.2-4.5); CHLORIDE 110 MMOL/L (98-107); POTASSIUM 3.4 MMOL/L (3.6-5.0); SODIUM 143 MMOL/L (135-145)
[2021-01-17 07:00] LABS: CALCIUM 8.1 MG/DL (8.5-10.1)
[2021-01-17 07:01] LABS: GLUCOSE 79 MG/DL (70-105); TOTAL PROTEIN 4.3 GM/DL (6.4-8.2)
[2021-01-17 07:03] LABS: BILIRUBIN,TOTAL < 0.1 MG/DL (0.1-1.0); CARBON DIOXIDE 24 MMOL/L (21-32)
[2021-01-17 07:05] LABS: ALKALINE PHOSPHATASE 211 U/L (40-136); CREATININE SERUM 0.63 MG/DL (0.60-1.30); GFR ESTIMATED > 60
[2021-01-17 07:06] LABS: BUN/CREATININE RATIO 3
[2021-01-17 07:08] LABS: ALANINE AMINOTRANSFERASE 17 U/L (0-55)
[2021-01-17] MEDS ORDERED: LIPASE/AMYLASE/PROTEASE (PANCRELIPASE) 5,000 UNITS CAP PO SCH (08:00)
[2021-01-17] MEDS: SENNA W/DOCUSATE (SENOKOT S) TABLET PO SCH (08:12)
[2021-01-17] MEDS: morphine ER 15 MG (MS CONTIN) TAB PO SCH (08:12)
[2021-01-17] MEDS: LIPASE/AMYLASE/PROTEASE (PANCRELIPASE) 5,000 UNITS CAP PO SCH ×2 (08:12→12:56)
[2021-01-17] MEDS: NICOTINE 21 MG (NICODERM) PATCH TD SCH (08:13)
[2021-01-17] MEDS: NICOTINE PATCH REMOVAL TP SCH (08:20)
[2021-01-17] MEDS ORDERED: NON-FORMULARY MEDICATION 1 EA EA (Potassium Gluconate (Potassium) 99 MG) PO SCH (09:00)
[2021-01-17] MEDS ORDERED: buPROPion SR 150 MG (WELLBUTRIN SR) TAB PO SCH (09:00)
[2021-01-17] MEDS ORDERED: lisINopril 10 MG (PRINIVIL) TABLET PO SCH (09:00)
[2021-01-17] MEDS ORDERED: ASPIRIN E.C. 81 MG (ECOTRIN) TAB PO SCH (09:00)
[2021-01-17] MEDS ORDERED: OMEPRAZOLE 20 MG (PriLOSEC) CAP NON-FORMULARY PO SCH (09:00)
[2021-01-17] MEDS ORDERED: lisINopril 20 MG (PRINIVIL) TABLET PO SCH (09:00)
[2021-01-17] MEDS ORDERED: [UNRECOGNIZED DRUG - OTHER] PO SCH (09:00)
[2021-01-17] MEDS ORDERED: CHOLESTYRAMINE 4 GM (QUESTRAN LITE, PREVALITE) PKT PO SCH (09:00)
--- NOTE | 2021-01-17 09:22 | Speech Therapy Daily Note ---
Speech Daily Progress Note Subjective Date Seen by Provider: Jan 17, 2021 Time Seen by Provider: 00:15 Patient was resting in his bed speaking with the kitchen staff to give his lunch order. Patient struggled to express what he wanted, however staff assisted him with his word finding. Patient states he is hoping to be discharged today. Objective Patient completed naming exercises at 60% with moderate verbal cuing. Assessment Assessment Current Status: Fair Progress Treatment Plan Continue Plan of Care Speech Short Term Goals Short Term Goals Short Term Goals 1) Patient will complete memory tasks related to himself at 75% or greater with minimal cuing. 2) Patient will complete expressive language tasks in order to effectively communicate at 75% or greater with minimal cues. Speech Assisted Goals Assisted Goals Patient will improve his cognitive-communication status in order to complete daily living tasks with minimal assist. Speech-Plan Patient/Family Goals Patient/Family Goals: Patient plans on returning to his home where he lives with his fiance. Treatment Plan Speech Therapy Treatment Plan: Continue Plan of Care Treatment Duration: Jan 23, 2021 Frequency: 4 times per week (Patient will receive skilled ST 4-5x per week) Estimated Hrs Per Day: .25 hour per day Rehab Potential: Fair Barriers to Learning: Patient's recent health decline due to pancreatic cancer, regression of expressive aphasia Pt/Family Agrees to Plan: Yes Safety Risks/Education Teaching Recipient: Patient Teaching Methods: Discussion Response to Teaching: Verbalize Understanding, Reinforcement Needed Education Topics Provided: Continued safety within his room, utilization of call light Time Speech Therapy Time In: 08:15 Speech Therapy Time Out: 08:30 Total Billed Time: 15 Billed Treatment Time 1, GENEVA Lozoya Jan 17, 2021 09:22
[2021-01-17] MEDS: MEGESTROL 40 MG (MEGACE) TAB PO SCH ×2 (10:22→13:52)
[2021-01-17] MEDS ORDERED: KCL 10 MEQ TAB (MICRO K) PO SCH (10:30)
[2021-01-17] MEDS ORDERED: NS IV 500 ML 500 ML IV SCH (11:45)
--- NOTE | 2021-01-17 11:48 | Discharge Summary ---
Discharge Summary Hospital Course Was the Problem List Reviewed?: Yes Problems/Dx: (1) Sepsis Status: Acute Qualifiers: Qualified Codes: A41.9 - Sepsis, unspecified organism (2) Fever Status: Acute Qualifiers: Qualified Codes: R50.9 - Fever, unspecified (3) Pancreatic cancer Status: Acute Qualifiers: Qualified Codes: C25.9 - Malignant neoplasm of pancreas, unspecified Hospital Course Date of Admission: Jan 14, 2021 at 15:59 Admission Diagnosis : Family Physician/Provider: [facility] Date of Discharge: 01/17/21 Discharge Diagnosis: Fever, sepsis of unknown source, immunosuppressed due to chemotherapy for pancreatic cancer, altered mental status with word finding but MRI revealed no new stroke Hospital Course: Patient had a lengthy hospital course he was placed in the ICU for fever and unknown source of sepsis he was given broad-spectrum antibiotics and IV fluids. Patient was monitored closely and transferred to the floor floor. Dr. Elias was consulted. Patient had word finding issues so he was assessed for stroke with MRI which was negative only showing the old stroke. Patient was given 1 unit of blood before discharge and he will complete antibiotics for immunosuppressed state and high suspicion for bacterial source of the sepsis. Labs and Pending Lab Test: Laboratory Tests 01/17/21 06:20: White Blood Count 5.5, Red Blood Count 2.54L, Hemoglobin 7.1L, Hematocrit 22L, Mean Corpuscular Volume 87, Mean Corpuscular Hemoglobin 28, Mean Corpuscular Hemoglobin Concent 32, Red Cell Distribution Width 20.5H, Platelet Count 369, Mean Platelet Volume 9.2, Immature Granulocyte % (Auto) 1, Neutrophils (%) (Auto) 17L, Lymphocytes (%) (Auto) 56H, Monocytes (%) (Auto) 20H, Eosinophils (%) (Auto) 5, Basophils (%) (Auto) 1, Neutrophils # (Auto) 1.0L, Lymphocytes # (Auto) 3.1, Monocytes # (Auto) 1.1H, Eosinophils # (Auto) 0.3, Basophils # (Auto) 0.0, Immature Granulocyte # (Auto) 0.1, Sodium Level 143, Potassium Level 3.4L, Chloride Level 110H, Carbon Dioxide Level 24, Anion Gap 9, Blood Urea Nitrogen < 2L, Creatinine 0.63, Estimat Glomerular Filtration Rate > 60, BUN/Creatinine Ratio 3, Glucose Level 79, Calcium Level 8.1L, Corrected Calcium 9.5, Total Bilirubin < 0.1L, Aspartate Amino Transf (AST/SGOT) 33, Alanine Aminotransferase (ALT/SGPT) 17, Alkaline Phosphatase 211H, Total Protein 4.3L, Albumin 2.3L Microbiology 01/14/21 Urine Culture - Final, Complete NO GROWTH 01/14/21 Blood Culture - Preliminary, Resulted No growth Home Meds Active Reported Aspirin EC (Aspirin) 81 Mg Tablet.dr 81 Mg PO DAILY Megestrol Acetate 20 Mg Tablet 20 Mg PO TID LAST FILLED 10-25-2020 #90/30 DAY SUPPLY Potassium (Potassium Gluconate) 99 Mg Tablet 99 Mg PO DAILY Oxycodone HCl 5 Mg Tablet 5 Mg PO Q6H PRN Pantoprazole Sodium 40 Mg Tablet.dr 40 Mg PO 1200 Morphine Sulfate ER (Morphine Sulfate) 15 Mg Tablet.er 15 Mg PO Q12H Dicyclomine HCl 10 Mg Capsule 10-20 Mg PO QID PRN Trazodone HCl 50 Mg Tablet 150 Mg PO HS PRN TAKES 3 (50MG) TABS Promethazine Tablet (Promethazine HCl) 25 Mg Tablet 25 Mg PO BID PRN Creon 12,000 Units Capsule (Lipase/Protease/Amylase) 1 Each Capsule.dr 1 Each PO WITH SNACKS Creon 12,000 Units Capsule (Lipase/Protease/Amylase) 1 Each Capsule.dr 2 Each PO TIDWM Questran Light Powder (Cholestyramine/Aspartame) 210 Gm Powder 4 Gm PO DAILY Bupropion HCl Sr (Bupropion HCl) 150 Mg Tablet.er 150 Mg PO DAILY LAST FILLED 05-20-2020 #90/90 DAY SUPPLY Xanax Tablet (Alprazolam) 0.25 Mg Tablet 0.25 Mg PO BID PRN Lisinopril 20 Mg Tablet 10 Mg PO DAILY TAKES OF A 20MG LAST FILLED 09-12-2020 #45/ DAY SUPPLY Escitalopram Oxalate 20 Mg Tablet 20 Mg PO HS LAST FILLED 08-29-2020 #90 DAY SUPPLY Omeprazole 20 Mg Capsule.dr 20 Mg PO DAILY Assessment/Pt Instructions Dr. Elias's instruction Discharge Planning: <30 minutes discharge planning Discharge Physical Examination Vital Signs Vital Signs Date Time Temp Pulse Resp B/P (MAP) Pulse Ox O2 Delivery O2 Flow Rate FiO2 01/17/21 11:24 36.1 71 18 101/57 (72) 97 Room Air 01/14/21 18:29 21 General Appearance: No Apparent Distress, WD/WN Respiratory: Lungs Clear Cardiovascular: Regular Rate, Rhythm Neurologic/Psychiatric: Alert, Oriented x3 Allergies: Coded Allergies: Penicillins (Unverified Allergy, Intermediate, hives, 01/09/20) hydromorphone (Verified Allergy, Mild, 12/22/20) Discharge Summary Date of Admission Jan 14, 2021 at 15:59 Date of Discharge Discharge Date: Jan 17, 2021 Admission Diagnosis Assessment: Sepsis Hypotension Altered mental status Pancreatic cancer Immunosuppressed with chemotherapy Plan: ICU IV antibiotics Oncology consult IV fluids Discharge Diagnosis Assessment: Sepsis Fever Hypotension Altered mental status Pancreatic cancer Immunosuppressed with chemotherapy Confusion Plan: ICU IV antibiotics Oncology consult IV fluids 01/15/21: Transfer to [address] [place] [address] to evaluate for CVA 01/16/2021: Speech therapy eval Monitor closely (1) Sepsis Status: Acute Qualifiers: Qualified Codes: A41.9 - Sepsis, unspecified organism (2) Fever Status: Acute Qualifiers: Qualified Codes: R50.9 - Fever, unspecified (3) Pancreatic cancer Status: Acute Qualifiers: Qualified Codes: C25.9 - Malignant neoplasm of pancreas, unspecified ELIEZER BOWMAN DO Jan 17, 2021 11:48
[2021-01-17] MEDS ORDERED: FUROSEMIDE 40 MG/4 ML INJ (LASIX) IVP ONE (12:00)
[2021-01-17] MEDS ORDERED: PANTOPRAZOLE 40 MG (PROTONIX) TAB PO SCH (12:00)
[2021-01-17] MEDS ORDERED: CEFD300C3 PO (12:16)
[2021-01-17] MEDS ORDERED: TROUGH ORDER-PHARMACY XX NR (13:00)
[2021-01-17 13:50] VITALS: BP 134/74
[2021-01-17 14:05] VITALS: BP 122/73
[2021-01-17 16:23] VITALS: BP 144/78
[2021-01-17] MEDS: cefTRIAXone 2,000 MG/SWFI 20 ML IV PUSH IV SCH ×2 (16:28)
[2021-01-17] MEDS ORDERED: ONDA8TAB13 PO (17:00)
[2021-01-17] MEDS ORDERED: ONDANSETRON 4 MG (ZOFRAN) ORAL DISSOLVE TAB ONE (17:39)
[2021-01-17] MEDS ORDERED: ONDANSETRON 4 MG (ZOFRAN) ORAL DISSOLVE TAB PO STA (17:40)
[2021-01-17 17:50] VITALS: BP 144/78
[2021-01-17] MEDS ORDERED: VANCOMYCIN 750 MG/NS 250 ML IVPB IV SCH ×2 (18:00)
== END 2021-01-17 17:50 | disposition home or self-care (01) | DRG 872 ==
LOC: EDUNIT# 10:57 → ER 10:59 → ICU 15:59 → 4TH 01-15 13:21
PROVIDERS: ADMIT Internal Medicine; ATTEND Internal Medicine
DX: A41.9 Sepsis, unspecified organism (principal); C25.9 Malignant neoplasm of pancreas, unspecified; D84.821 Immunodeficiency due to drugs; T45.1X5A Adverse effect of antineoplastic and immunosuppressive drugs, initial encounter; J44.9 Chronic obstructive pulmonary disease, unspecified; E78.00 Pure hypercholesterolemia, unspecified; I10 Essential (primary) hypertension; K21.9 Gastro-esophageal reflux disease without esophagitis; G89.29 Other chronic pain; M54.9 Dorsalgia, unspecified; F41.9 Anxiety disorder, unspecified; F32.9 Major depressive disorder, single episode, unspecified; I95.9 Hypotension, unspecified; Z20.822 Contact with and (suspected) exposure to COVID-19; Z92.21 Personal history of antineoplastic chemotherapy; Z88.0 Allergy status to penicillin
CPT/HCPCS: 36415; 70450; 70553; 71045; 80048; 80053; 80202; 81000; 82140; 83605; 83735; 84100; 84484; 85007; 85025; 85027; 85610; 85730; 86850; 86900; 86901; 86920; 87040; 87088; 87636; 93005

== ENCOUNTER → 2021-01-29 | Outpatient (CLI) | payer OTHER ==
[~2021-01-29] MED LIST changes: +BUPR150T14 PO; +CATHETER FLUSH 10 ML SYR IV PRN; +CEFD300C3 PO; +CHOL210P2 PO; +DICY10CA12 PO; +HOLD METFORMIN - RECEIVED CONTRAST 20 ML VIAL IV SCH; +IOHEXOL 350 MG/ML 100 ML (OMNIPAQUE 350) VIAL IV ONE; +LIPA1CAP2 PO; +MEGE20TA3 PO; +MORP-68 PO; +ONDA8TAB13 PO; +OXYC5TAB PO; +PANT40TA52 PO; +POTA99TA21 PO; +PROM25TA14 PO
--- NOTE | 2021-01-29 12:48 | Diagnostic Imaging Report ---
PROCEDURE: CT chest with contrast, CT abdomen and pelvis with and without contrast. TECHNIQUE: Pre and post intravenous contrast axial imaging of the abdomen and pelvis and post contrast axial imaging of the chest were performed. Auto Exposure Controls were utilized during the CT exam to meet ALARA standards for radiation dose reduction. INDICATION: Malignant neoplasm of the head of the pancreas, follow-up. COMPARISON: Correlation is made with prior CT of the abdomen and pelvis from 12/22/2020. FINDINGS: CT CHEST: A right chest wall port has the tip entering the right atrium. No axillary lymphadenopathy is detected. No mediastinal or hilar lymphadenopathy is detected. No pericardial or pleural fluid is detected. No pulmonary infiltrate, nodule, or mass is detected. IMPRESSION: Unremarkable CT of the chest. There is no evidence of thoracic lymphadenopathy or pulmonary metastatic disease. CT ABDOMEN AND PELVIS: No discrete liver mass is identified. Gallbladder is surgically absent. There is no biliary ductal dilatation. There appear to be postoperative changes to the pancreas, likely from a Whipple procedure. No definite recurrent mass is seen. The pancreatic body and tail are unremarkable. The spleen is unremarkable. A small nodule in the right adrenal gland is noted measuring 12 mm, stable. Left adrenal gland is unremarkable. Aorta again demonstrates significant atherosclerotic plaque with chronic occlusion of the left common iliac artery. Small and large bowel loops appear to be normal in caliber apart from moderate distention of the rectum and sigmoid by stool. There is moderate stool throughout the colon. No definite central retroperitoneal or mesenteric lymphadenopathy is seen. No pelvic lymphadenopathy is detected. Bladder is decompressed. Prostate is unremarkable. IMPRESSION: 1. Postoperative changes to the pancreas. No residual or recurrent mass or evidence of abdominal or pelvic lymphadenopathy is seen. There is a stable right adrenal nodule. 2. Moderate stool, suggestive of constipation. Dictated by: Dictated on workstation # [id number]
== END ==
LOC: RAD 10:15
PROVIDERS: ATTEND Internal Medicine Hematology & Oncology
DX: C25.0 Malignant neoplasm of head of pancreas (principal); E27.8 Other specified disorders of adrenal gland
CPT/HCPCS: 71260; 74178

== ENCOUNTER 2021-02-08 19:43 | Emergency (ER) | payer OTHER ==
[~2021-02-08] VITALS: Ht 170 cm; Wt 49.9 kg
[~2021-02-08 19:43] MED LIST changes: -CATHETER FLUSH 10 ML SYR IV PRN; -HOLD METFORMIN - RECEIVED CONTRAST 20 ML VIAL IV SCH; -IOHEXOL 350 MG/ML 100 ML (OMNIPAQUE 350) VIAL IV ONE
--- NOTE | 2021-02-08 19:56 | ED General ---
General Chief Complaint: General Problems/Pain Stated Complaint: LOW BP 103/56, LEG PAIN, COLD FEET Source of Information: Patient Exam Limitations: No Limitations History of Present Illness Date Seen by Provider: Feb 08, 2021 Time Seen by Provider: 19:56 Initial Comments To ER by private vehicle with reports of bilateral lower extremities feeling cold all the time, general malaise and weakness. No nausea no vomiting no abdominal pain that is out of the ordinary for him. He has a history of pancreatic cancer status post Whipple procedure at [facility] at the end of 2019. No fevers. Finished chemotherapy 2 to 3 weeks ago. Timing/Duration: 2-3 Days Severity: Moderate Associated Systoms: Denies Symptoms Allergies and Home Medications Allergies Coded Allergies: Penicillins (Unverified Allergy, Intermediate, hives, 01/09/20) hydromorphone (Verified Allergy, Mild, 12/22/20) Home Medications ALPRAZolam 0.25 Mg Tablet, 0.25 MG PO BID PRN for ANXIETY, (Reported) Aspirin 81 Mg Tablet.dr, 81 MG PO DAILY, (Reported) Bupropion HCl 150 Mg Tablet.er, 150 MG PO DAILY, (Reported) LAST FILLED 05-20-2020 #90/90 DAY SUPPLY Cefdinir 300 Mg Capsule, 300 MG PO BID Prescribed by: ELIEZER BOWMAN on 01/17/21 1216 Cholestyramine/Aspartame 210 Gm Powder, 4 GM PO DAILY, (Reported) Dicyclomine HCl 10 Mg Capsule, 10-20 MG PO QID PRN for ABDOMINAL CRAMPING, (Reported) Escitalopram Oxalate 20 Mg Tablet, 20 MG PO HS, (Reported) LAST FILLED 08-29-2020 #90/90 DAY SUPPLY Lipase/Protease/Amylase 1 Each Capsule.dr, 2 EACH PO TIDWM, (Reported) Lipase/Protease/Amylase 1 Each Capsule.dr, 1 EACH PO WITH SNACKS, (Reported) Lisinopril 20 Mg Tablet, 10 MG PO DAILY, (Reported) TAKES OF A 20MG LAST FILLED 09-12-2020 #45/90 DAY SUPPLY Megestrol Acetate 20 Mg Tablet, 20 MG PO TID, (Reported) LAST FILLED 10-25-2020 #90/30 DAY SUPPLY Morphine Sulfate 15 Mg Tablet.er, 15 MG PO Q12H, (Reported) Omeprazole 20 Mg Capsule.dr, 20 MG PO DAILY, (Reported) Ondansetron 8 Mg Tab.rapdis, 8 MG PO Q6H PRN for NAUSEA/VOMITING Prescribed by: ELIEZER BOWMAN on 01/17/21 1700 Oxycodone HCl 5 Mg Tablet, 5 MG PO Q6H PRN for PAIN-SEVERE (8-10), (Reported) Pantoprazole Sodium 40 Mg Tablet.dr, 40 MG PO 1200, (Reported) Potassium Gluconate 99 Mg Tablet, 99 MG PO DAILY, (Reported) Promethazine HCl 25 Mg Tablet, 25 MG PO BID PRN for NAUSEA/VOMITING-2ND LINE, (Reported) Trazodone HCl 50 Mg Tablet, 150 MG PO HS PRN for SLEEP, (Reported) TAKES 3 (50MG) TABS Patient Home Medication List Home Medication List Reviewed: Yes Review of Systems Review of Systems Constitutional: see HPI EENTM: see HPI Respiratory: see HPI, cough Cardiovascular: no symptoms reported Genitourinary: no symptoms reported Musculoskeletal: no symptoms reported Skin: no symptoms reported Psychiatric/Neurological: No Symptoms Reported Hematologic/Lymphatic: No Symptoms Reported Immunological/Allergic: no symptoms reported Past Ipxyqpj-Fevjez-Qqrxih Hx Patient Social History Tobacco Use?: Yes Tobacco type used: Cigarettes Smoking Status: Current Everyday Smoker Substance use?: No Alcohol Use?: Yes Alcohol type: Beer Pt feels they are or have been: No Immunizations Up To Date Tetanus Booster (TDap): Unknown PED Vaccines UTD: No Seasonal Allergies Seasonal Allergies: Yes Past Medical History Surgeries: Yes (HERNIA REPAIR, STENT IN LEGS, WHIPPLE) Appendectomy, Gallbladder Respiratory: Yes Sleep Apnea, COPD Currently Using CPAP: No (DOESN'T USE CPAP) Cardiac: Yes High Cholesterol, Hypertension Neurological: Yes Stroke Sexually Transmitted Disease: No HIV/AIDS: No Genitourinary: No Gastrointestinal: Yes Gastroesophageal Reflux Musculoskeletal: Yes Chronic Back Pain Endocrine: No HEENT: Yes (READING GLASSES, TOP DENTURE) Loss of Vision: Denies Hearing Impairment: Denies Cancer: Yes Pancreatic Did You Recieve Any Treatments: Yes What Type of Treatment Did You: Chemotherapy Psychosocial: Yes Anxiety, Depression Integumentary: No Blood Disorders: No Adverse Reaction/Blood Tranf: No (N/A) Family Medical History Cancer, Stroke Physical Exam Vital Signs Vital Signs - First Documented 02/08/21 19:47 Temp 36.7 Pulse 86 Resp 18 B/P (MAP) 105/58 (74) Pulse Ox 99 O2 Delivery Room Air Capillary Refill : Height, Weight, BMI Height: 5'7.00" Weight: 185lbs. 0.0oz. 83.886080kd; 17.71 BMI Method:Stated General Appearance: No Apparent Distress, WD/WN, Thin Eyes: Bilateral Eye Normal Inspection, Bilateral Eye PERRL, Bilateral Eye EOMI Neck: Full Range of Motion, Normal Inspection Respiratory: No Accessory Muscle Use, No Respiratory Distress Cardiovascular: Regular Rate, Rhythm, Normal Peripheral Pulses Gastrointestinal: Normal Bowel Sounds, Non Tender, Soft Extremity: Normal Capillary Refill, Normal Inspection Neurologic/Psychiatric: Alert, Oriented x3 Skin: Normal Color, Warm/Dry Progress/Results/Core Measures Suspected Sepsis SIRS Temperature: Pulse: Respiratory Rate: Laboratory Tests 02/08/21 20:05: White Blood Count 8.4 Blood Pressure / Mean: Laboratory Tests 02/08/21 20:05: Creatinine 0.66, Platelet Count 400, Total Bilirubin 0.2 Results/Orders Lab Results Laboratory Tests Test 02/08/21 20:02 02/08/21 20:05 Range/Units Urine Color YELLOW Urine Clarity CLEAR Urine pH 6.0 5-9 Urine Specific [place] 1.025 H 1.016-1.022 Urine Protein NEGATIVE NEGATIVE Urine Glucose (UA) NEGATIVE NEGATIVE Urine Ketones TRACE H NEGATIVE Urine Nitrite NEGATIVE NEGATIVE Urine Bilirubin NEGATIVE NEGATIVE Urine Urobilinogen 0.2 < = 1.0 MG/DL Urine Leukocyte Esterase NEGATIVE NEGATIVE Urine RBC (Auto) NEGATIVE NEGATIVE Urine RBC NONE /HPF Urine WBC 2-5 /HPF Urine Squamous Epithelial Cells RARE /HPF Urine Crystals PRESENT H /LPF Urine Calcium Oxalate Crystals FEW H /LPF Urine Bacteria TRACE /HPF Urine Casts PRESENT /LPF Urine Hyaline Casts RARE /LPF Urine Mucus MODERATE H /LPF Urine Culture Indicated NO SARS-CoV-2 RNA (RT-PCR) Not Detected Not Detecte White Blood Count 8.4 4.3-11.0 10^3/uL Red Blood Count 2.70 L 4.30-5.52 10^6/uL Hemoglobin 8.2 L 13.3-17.7 g/dL Hematocrit 25 L 40-54 % Mean Corpuscular Volume 93 80-99 fL Mean Corpuscular Hemoglobin 30 25-34 pg Mean Corpuscular Hemoglobin Concent 33 32-36 g/dL Red Cell Distribution Width 20.3 H 10.0-14.5 % Platelet Count 400 130-400 10^3/uL Mean Platelet Volume 9.0 9.0-12.2 fL Immature Granulocyte % (Auto) 1 % Neutrophils (%) (Auto) 60 42-75 % Lymphocytes (%) (Auto) 23 12-44 % Monocytes (%) (Auto) 12 0-12 % Eosinophils (%) (Auto) 4 0-10 % Basophils (%) (Auto) 0 0-10 % Neutrophils # (Auto) 5.1 1.8-7.8 10^3/uL Lymphocytes # (Auto) 1.9 1.0-4.0 10^3/uL Monocytes # (Auto) 1.0 0.0-1.0 10^3/uL Eosinophils # (Auto) 0.3 0.0-0.3 10^3/uL Basophils # (Auto) 0.0 0.0-0.1 10^3/uL Immature Granulocyte # (Auto) 0.1 0.0-0.1 10^3/uL Sodium Level 138 135-145 MMOL/L Potassium Level 3.4 L 3.6-5.0 MMOL/L Chloride Level 107 98-107 MMOL/L Carbon Dioxide Level 21 21-32 MMOL/L Anion Gap 10 5-14 MMOL/L Blood Urea Nitrogen 7 7-18 MG/DL Creatinine 0.66 0.60-1.30 MG/DL Estimat Glomerular Filtration Rate > 60 BUN/Creatinine Ratio 11 Glucose Level 144 H 70-105 MG/DL Calcium Level 7.8 L 8.5-10.1 MG/DL Corrected Calcium 9.0 8.5-10.1 MG/DL Total Bilirubin 0.2 0.1-1.0 MG/DL Aspartate Amino Transf (AST/SGOT) 18 5-34 U/L Alanine Aminotransferase (ALT/SGPT) 18 0-55 U/L Alkaline Phosphatase 366 H 40-136 U/L Total Protein 5.3 L 6.4-8.2 GM/DL Albumin 2.5 L 3.2-4.5 GM/DL My Orders Orders - PARAMJIT HAYWOOD [employer] Cbc With Automated Diff (02/08/21 19:57) Comprehensive Metabolic Panel (02/08/21 19:57) Ua Culture If Indicated (02/08/21 19:57) Ed Iv/Invasive Line Start (02/08/21 19:57) Chest 1 View, Ap/Pa Only (02/08/21 19:57) Covid 19 Inhouse Test (02/08/21 19:57) Lactated Ringers (Lr 1000 Ml Iv Solution (02/08/21 20:45) Vital Signs/I&O 02/08/21 19:47 Temp 36.7 Pulse 86 Resp 18 B/P (MAP) 105/58 (74) Pulse Ox 99 O2 Delivery Room Air Capillary Refill : Departure Communication (Admissions) He does have follow up with Dr marcus on wednesday, 48 hours from now. He'll likely recheck a cbc and if Hg is lower may transfuse prbcs. Discussed with patient and they agree. Is really bothered by the cold achy sensation in the lower extremities though they are warm to the touch. We will trial some gabapentin. Impression Primary Impression: Pancreatic cancer Additional Impressions: General weakness Paresthesia of both feet Disposition: HOME, SELF-CARE Condition: Stable Departure-Patient Inst. Decision time for Depature: 21:01 Referrals: [facility] (PCP/Family) Primary Care Physician Patient Instructions: Fatigue ED Add. Discharge Instructions: 1. Follow-up with your regular doctor next week. Return to ER for any concerns. All discharge instructions reviewed with patient and/or family. Voiced understanding. Scripts Gabapentin (Gabapentin) 100 Mg Capsule 200 MG PO Q8H for Neuropathic pain, #30 CAP Prov: PARAMJIT HAYWOOD APRN 02/08/21 Copy Copies To 1: GAL MARCUS PETER J APRN Feb 08, 2021 19:56
[2021-02-08 20:12] LABS: BILIRUBIN,URINE NEGATIVE (NEGATIVE); CLARITY,URINE CLEAR; COLOR,URINE YELLOW; GLUCOSE, URINE (UA) NEGATIVE (NEGATIVE); KETONES,URINE TRACE (NEGATIVE); LEUKOCYTE ESTERASE ,URINE NEGATIVE (NEGATIVE); NITRITE,URINE NEGATIVE (NEGATIVE); PROTEIN,URINE NEGATIVE (NEGATIVE)
[2021-02-08 20:15] LABS: BASOPHILS % (AUTO) 0 % (0-10); EOSINOPHILS # (AUTO) 0.3 10^3/uL (0.0-0.3); EOSINOPHILS % (AUTO) 4 % (0-10); HEMATOCRIT 25 % (40-54); HEMOGLOBIN 8.2 g/dL (13.3-17.7); LYMPHOCYTES # (AUTO) 1.9 10^3/uL (1.0-4.0); LYMPHOCYTES % (AUTO) 23 % (12-44); MEAN CORPUSCULAR HEMOGLOBIN 30 pg (25-34); MEAN CORPUSCULAR HGB CONC 33 g/dL (32-36); MEAN CORPUSCULAR VOLUME 93 fL (80-99); MONOCYTES % (AUTO) 12 % (0-12); NEUTROPHILS # (AUTO) 5.1 10^3/uL (1.8-7.8); NEUTROPHILS % (AUTO) 60 % (42-75); PLATELET COUNT 400 10^3/uL (130-400); WHITE BLOOD COUNT 8.4 10^3/uL (4.3-11.0)
[2021-02-08 20:18] LABS: BACTERIA,URINE TRACE /HPF; CALCIUM OXALATE CRYSTALS,UR FEW /LPF; SQUAMOUS EPITHELIAL CELL,UR RARE /HPF
[2021-02-08 20:19] LABS: HYALINE CASTS, URINE RARE /LPF
[2021-02-08 20:23] LABS: ALBUMIN 2.5 GM/DL (3.2-4.5); CHLORIDE 107 MMOL/L (98-107); POTASSIUM 3.4 MMOL/L (3.6-5.0); SODIUM 138 MMOL/L (135-145)
[2021-02-08 20:24] LABS: CALCIUM 7.8 MG/DL (8.5-10.1)
[2021-02-08 20:25] LABS: GLUCOSE 144 MG/DL (70-105)
[2021-02-08 20:26] LABS: TOTAL PROTEIN 5.3 GM/DL (6.4-8.2)
[2021-02-08 20:27] LABS: BILIRUBIN,TOTAL 0.2 MG/DL (0.1-1.0); CARBON DIOXIDE 21 MMOL/L (21-32)
[2021-02-08 20:29] LABS: ALKALINE PHOSPHATASE 366 U/L (40-136); CREATININE SERUM 0.66 MG/DL (0.60-1.30); GFR ESTIMATED > 60
[2021-02-08 20:30] LABS: BUN/CREATININE RATIO 11
[2021-02-08 20:32] LABS: ALANINE AMINOTRANSFERASE 18 U/L (0-55)
[2021-02-08] MEDS ORDERED: LACTATED RINGERS 1,000 ML IV SCH (20:45)
[2021-02-08] MEDS ORDERED: GABA-486 PO (21:25)
[2021-02-08] MEDS ORDERED: GABAPENTIN 100 MG (NEURONTIN) CAP PO ONE (21:30)
[2021-02-08 21:39] VITALS: BP 115/64
--- NOTE | 2021-02-08 22:45 | Diagnostic Imaging Report ---
Clinical indications: Patient with weakness. Exam: Portable chest x-ray upright view. Comparisons: Chest x-ray dated 01/14/2021. Findings: Port-A-Cath again seen overlying the right chest with tip in the caval atrial junction. Lungs/pleura: Lungs are clear. There is no pneumothorax. There is no pleural effusion. Mediastinum: Unremarkable. Pulmonary vasculature: Unremarkable. Heart: Unremarkable. Bones/extrathoracic soft tissue: Unremarkable. Impression: There is no radiographic evidence of acute cardiopulmonary process. Dictated by: Dictated on workstation # [id number]
== END 2021-02-08 21:39 | disposition home or self-care (01) ==
LOC: EDUNIT# 19:43 → ER 19:45
DX: C25.9 Malignant neoplasm of pancreas, unspecified (principal); R53.1 Weakness; R20.2 Paresthesia of skin; G47.30 Sleep apnea, unspecified; J44.9 Chronic obstructive pulmonary disease, unspecified; I10 Essential (primary) hypertension; K21.9 Gastro-esophageal reflux disease without esophagitis; F41.9 Anxiety disorder, unspecified; F32.9 Major depressive disorder, single episode, unspecified; G89.29 Other chronic pain; M54.9 Dorsalgia, unspecified; F17.210 Nicotine dependence, cigarettes, uncomplicated; Z20.822 Contact with and (suspected) exposure to COVID-19; Z86.73 Personal history of transient ischemic attack (TIA), and cerebral infarction without residual deficits; Z79.899 Other long term (current) drug therapy; Z79.891 Long term (current) use of opiate analgesic; Z79.82 Long term (current) use of aspirin
CPT/HCPCS: 36415; 71045; 80053; 81000; 85025; 85027; 87636

== ENCOUNTER 2021-02-10 08:58 | Outpatient (RCR) | payer OTHER ==
[2020-12-02 15:43] LABS: BASOPHILS % (AUTO) 0 % (0-10); EOSINOPHILS # (AUTO) 0.1 10^3/uL (0.0-0.3); EOSINOPHILS % (AUTO) 1 % (0-10); HEMATOCRIT 32 % (40-54); HEMOGLOBIN 11.4 g/dL (13.3-17.7); LYMPHOCYTES # (AUTO) 1.6 10^3/uL (1.0-4.0); LYMPHOCYTES % (AUTO) 24 % (12-44); MEAN CORPUSCULAR HEMOGLOBIN 29 pg (25-34); MEAN CORPUSCULAR HGB CONC 35 g/dL (32-36); MEAN CORPUSCULAR VOLUME 83 fL (80-99); MEAN PLATELET VOLUME 9.5 fL (9.0-12.2); MONOCYTES # (AUTO) 1.7 10^3/uL (0.0-1.0); MONOCYTES % (AUTO) 25 % (0-12); NEUTROPHILS # (AUTO) 3.5 10^3/uL (1.8-7.8); NEUTROPHILS % (AUTO) 50 % (42-75); PLATELET COUNT 335 10^3/uL (130-400)
[2020-12-02 16:01] LABS: ALANINE AMINOTRANSFERASE 16 U/L (0-55); ALBUMIN 3.3 GM/DL (3.2-4.5); ALKALINE PHOSPHATASE 72 U/L (40-136); BILIRUBIN,TOTAL 0.3 MG/DL (0.1-1.0); BUN/CREATININE RATIO 9; CALCIUM 9.2 MG/DL (8.5-10.1); CARBON DIOXIDE 23 MMOL/L (21-32); CHLORIDE 96 MMOL/L (98-107); CREATININE SERUM 1.19 MG/DL (0.60-1.30); GFR ESTIMATED > 60; GLUCOSE 167 MG/DL (70-105); MAGNESIUM 1.5 MG/DL (1.6-2.4); POTASSIUM 3.5 MMOL/L (3.6-5.0); SODIUM 129 MMOL/L (135-145); TOTAL PROTEIN 6.5 GM/DL (6.4-8.2)
[2020-12-04 09:49] LABS: BASOPHILS % (AUTO) 1 % (0-10); EOSINOPHILS # (AUTO) 0.1 10^3/uL (0.0-0.3); EOSINOPHILS % (AUTO) 1 % (0-10); HEMATOCRIT 31 % (40-54); HEMOGLOBIN 10.6 g/dL (13.3-17.7); LYMPHOCYTES # (AUTO) 2.1 10^3/uL (1.0-4.0); LYMPHOCYTES % (AUTO) 25 % (12-44); MEAN CORPUSCULAR HEMOGLOBIN 28 pg (25-34); MEAN CORPUSCULAR HGB CONC 34 g/dL (32-36); MEAN CORPUSCULAR VOLUME 83 fL (80-99); MEAN PLATELET VOLUME 9.1 fL (9.0-12.2); MONOCYTES # (AUTO) 1.3 10^3/uL (0.0-1.0); MONOCYTES % (AUTO) 15 % (0-12); NEUTROPHILS # (AUTO) 4.7 10^3/uL (1.8-7.8); NEUTROPHILS % (AUTO) 56 % (42-75); PLATELET COUNT 397 10^3/uL (130-400); WHITE BLOOD COUNT 8.5 10^3/uL (4.3-11.0)
[2020-12-04 10:15] LABS: ALANINE AMINOTRANSFERASE 16 U/L (0-55); ALBUMIN 3.1 GM/DL (3.2-4.5); ALKALINE PHOSPHATASE 69 U/L (40-136); BILIRUBIN,TOTAL 0.3 MG/DL (0.1-1.0); BUN/CREATININE RATIO 8; CALCIUM 9.1 MG/DL (8.5-10.1); CARBON DIOXIDE 21 MMOL/L (21-32); CHLORIDE 99 MMOL/L (98-107); CREATININE SERUM 0.83 MG/DL (0.60-1.30); GFR ESTIMATED > 60; GLUCOSE 173 MG/DL (70-105); POTASSIUM 3.1 MMOL/L (3.6-5.0); SODIUM 131 MMOL/L (135-145); TOTAL PROTEIN 6.1 GM/DL (6.4-8.2)
[2020-12-04 10:37] LABS: MAGNESIUM 1.5 MG/DL (1.6-2.4)
[2020-12-10 13:35] LABS: BASOPHILS % (AUTO) 0 % (0-10); EOSINOPHILS % (AUTO) 0 % (0-10); HEMATOCRIT 33 % (40-54); LYMPHOCYTES % (AUTO) 15 % (12-44); MEAN CORPUSCULAR HEMOGLOBIN 29 pg (25-34); MEAN CORPUSCULAR HGB CONC 33 g/dL (32-36); MEAN CORPUSCULAR VOLUME 87 fL (80-99); MEAN PLATELET VOLUME 8.9 fL (9.0-12.2); MONOCYTES # (AUTO) 0.1 10^3/uL (0.0-1.0); MONOCYTES % (AUTO) 2 % (0-12); NEUTROPHILS # (AUTO) 5.4 10^3/uL (1.8-7.8); NEUTROPHILS % (AUTO) 82 % (42-75); PLATELET COUNT 334 10^3/uL (130-400); WHITE BLOOD COUNT 6.5 10^3/uL (4.3-11.0)
[2020-12-10 14:06] LABS: BUN/CREATININE RATIO 19; CARBON DIOXIDE 25 MMOL/L (21-32); CHLORIDE 100 MMOL/L (98-107); CREATININE SERUM 0.97 MG/DL (0.60-1.30); GFR ESTIMATED > 60; GLUCOSE 202 MG/DL (70-105); POTASSIUM 4.2 MMOL/L (3.6-5.0); SODIUM 134 MMOL/L (135-145)
[2020-12-17 11:41] LABS: BASOPHILS % (AUTO) 1 % (0-10); EOSINOPHILS % (AUTO) 1 % (0-10); HEMATOCRIT 30 % (40-54); HEMOGLOBIN 9.7 g/dL (13.3-17.7); LYMPHOCYTES # (AUTO) 1.5 X 10^3 (1.0-4.0); LYMPHOCYTES % (AUTO) 44 % (12-44); MEAN CORPUSCULAR HEMOGLOBIN 28 pg (25-34); MEAN CORPUSCULAR HGB CONC 33 g/dL (32-36); MEAN CORPUSCULAR VOLUME 86 fL (80-99); MEAN PLATELET VOLUME 8.7 fL (9.0-12.2); MONOCYTES # (AUTO) 0.9 X 10^3 (0.0-1.0); MONOCYTES % (AUTO) 27 % (0-12); NEUTROPHILS % (AUTO) 27 % (42-75); PLATELET COUNT 327 10^3/uL (130-400); WHITE BLOOD COUNT 3.5 10^3/uL (4.3-11.0)
[2020-12-17 11:56] LABS: ALANINE AMINOTRANSFERASE 12 U/L (0-55); ALBUMIN 3.1 GM/DL (3.2-4.5); ALKALINE PHOSPHATASE 80 U/L (40-136); BILIRUBIN,TOTAL 0.2 MG/DL (0.1-1.0); BUN/CREATININE RATIO 15; CALCIUM 8.1 MG/DL (8.5-10.1); CARBON DIOXIDE 20 MMOL/L (21-32); CHLORIDE 103 MMOL/L (98-107); CREATININE SERUM 0.85 MG/DL (0.60-1.30); GFR ESTIMATED > 60; GLUCOSE 168 MG/DL (70-105); MAGNESIUM 1.9 MG/DL (1.6-2.4); POTASSIUM 3.1 MMOL/L (3.6-5.0); SODIUM 132 MMOL/L (135-145); TOTAL PROTEIN 5.5 GM/DL (6.4-8.2)
[2020-12-23 14:13] LABS: BASOPHILS % (AUTO) 0 % (0-10); EOSINOPHILS # (AUTO) 0.1 10^3/uL (0.0-0.3); EOSINOPHILS % (AUTO) 1 % (0-10); HEMATOCRIT 29 % (40-54); HEMOGLOBIN 9.4 g/dL (13.3-17.7); LYMPHOCYTES # (AUTO) 1.8 10^3/uL (1.0-4.0); LYMPHOCYTES % (AUTO) 34 % (12-44); MEAN CORPUSCULAR HEMOGLOBIN 28 pg (25-34); MEAN CORPUSCULAR HGB CONC 33 g/dL (32-36); MEAN CORPUSCULAR VOLUME 86 fL (80-99); MEAN PLATELET VOLUME 9.1 fL (9.0-12.2); MONOCYTES # (AUTO) 0.3 10^3/uL (0.0-1.0); MONOCYTES % (AUTO) 5 % (0-12); NEUTROPHILS # (AUTO) 3.2 10^3/uL (1.8-7.8); NEUTROPHILS % (AUTO) 59 % (42-75); PLATELET COUNT 229 10^3/uL (130-400); WHITE BLOOD COUNT 5.4 10^3/uL (4.3-11.0)
[2020-12-23 14:33] LABS: BUN/CREATININE RATIO 14; CALCIUM 8.5 MG/DL (8.5-10.1); CARBON DIOXIDE 22 MMOL/L (21-32); CHLORIDE 102 MMOL/L (98-107); CREATININE SERUM 0.79 MG/DL (0.60-1.30); GFR ESTIMATED > 60; GLUCOSE 99 MG/DL (70-105); POTASSIUM 3.6 MMOL/L (3.6-5.0); SODIUM 131 MMOL/L (135-145)
[2020-12-31 09:49] LABS: BASOPHILS % (AUTO) 0 % (0-10); EOSINOPHILS % (AUTO) 0 % (0-10); HEMATOCRIT 29 % (40-54); HEMOGLOBIN 9.7 g/dL (13.3-17.7); LYMPHOCYTES # (AUTO) 1.7 10^3/uL (1.0-4.0); LYMPHOCYTES % (AUTO) 13 % (12-44); MEAN CORPUSCULAR HEMOGLOBIN 28 pg (25-34); MEAN CORPUSCULAR HGB CONC 34 g/dL (32-36); MEAN CORPUSCULAR VOLUME 84 fL (80-99); MEAN PLATELET VOLUME 8.9 fL (9.0-12.2); MONOCYTES # (AUTO) 1.8 10^3/uL (0.0-1.0); MONOCYTES % (AUTO) 15 % (0-12); NEUTROPHILS # (AUTO) 8.7 10^3/uL (1.8-7.8); NEUTROPHILS % (AUTO) 69 % (42-75); PLATELET COUNT 423 10^3/uL (130-400); WHITE BLOOD COUNT 12.5 10^3/uL (4.3-11.0)
[2020-12-31 10:13] LABS: ALANINE AMINOTRANSFERASE 17 U/L (0-55); ALBUMIN 3.1 GM/DL (3.2-4.5); ALKALINE PHOSPHATASE 189 U/L (40-136); BILIRUBIN,TOTAL 0.2 MG/DL (0.1-1.0); BUN/CREATININE RATIO 7; CALCIUM 8.5 MG/DL (8.5-10.1); CARBON DIOXIDE 13 MMOL/L (21-32); CHLORIDE 102 MMOL/L (98-107); CREATININE SERUM 1.19 MG/DL (0.60-1.30); GFR ESTIMATED > 60; GLUCOSE 147 MG/DL (70-105); MAGNESIUM 1.2 MG/DL (1.6-2.4); POTASSIUM 2.8 MMOL/L (3.6-5.0); SODIUM 130 MMOL/L (135-145); TOTAL PROTEIN 5.8 GM/DL (6.4-8.2)
[2021-01-07 14:13] LABS: BASOPHILS % (AUTO) 0 % (0-10); EOSINOPHILS # (AUTO) 0.1 10^3/uL (0.0-0.3); EOSINOPHILS % (AUTO) 1 % (0-10); HEMATOCRIT 27 % (40-54); HEMOGLOBIN 9.1 g/dL (13.3-17.7); LYMPHOCYTES # (AUTO) 1.7 10^3/uL (1.0-4.0); LYMPHOCYTES % (AUTO) 28 % (12-44); MEAN CORPUSCULAR HEMOGLOBIN 28 pg (25-34); MEAN CORPUSCULAR HGB CONC 34 g/dL (32-36); MEAN CORPUSCULAR VOLUME 83 fL (80-99); MEAN PLATELET VOLUME 9.4 fL (9.0-12.2); MONOCYTES # (AUTO) 0.2 10^3/uL (0.0-1.0); MONOCYTES % (AUTO) 3 % (0-12); NEUTROPHILS # (AUTO) 4.1 10^3/uL (1.8-7.8); NEUTROPHILS % (AUTO) 67 % (42-75); PLATELET COUNT 285 10^3/uL (130-400); WHITE BLOOD COUNT 6.2 10^3/uL (4.3-11.0)
[2021-01-07 14:29] LABS: BUN/CREATININE RATIO 12; CALCIUM 9.2 MG/DL (8.5-10.1); CARBON DIOXIDE 25 MMOL/L (21-32); CHLORIDE 101 MMOL/L (98-107); CREATININE SERUM 0.68 MG/DL (0.60-1.30); GFR ESTIMATED > 60; GLUCOSE 125 MG/DL (70-105); POTASSIUM 3.3 MMOL/L (3.6-5.0); SODIUM 137 MMOL/L (135-145)
[2021-01-22 10:46] LABS: BASOPHILS # (AUTO) 0.1 10^3/uL (0.0-0.1); BASOPHILS % (AUTO) 1 % (0-10); EOSINOPHILS # (AUTO) 0.1 10^3/uL (0.0-0.3); EOSINOPHILS % (AUTO) 1 % (0-10); HEMATOCRIT 32 % (40-54); HEMOGLOBIN 10.1 g/dL (13.3-17.7); LYMPHOCYTES # (AUTO) 1.9 10^3/uL (1.0-4.0); LYMPHOCYTES % (AUTO) 16 % (12-44); MEAN CORPUSCULAR HEMOGLOBIN 29 pg (25-34); MEAN CORPUSCULAR HGB CONC 32 g/dL (32-36); MEAN CORPUSCULAR VOLUME 90 fL (80-99); MEAN PLATELET VOLUME 9.1 fL (9.0-12.2); MONOCYTES # (AUTO) 1.4 10^3/uL (0.0-1.0); MONOCYTES % (AUTO) 12 % (0-12); NEUTROPHILS # (AUTO) 8.2 10^3/uL (1.8-7.8); NEUTROPHILS % (AUTO) 69 % (42-75); PLATELET COUNT 484 10^3/uL (130-400); WHITE BLOOD COUNT 11.9 10^3/uL (4.3-11.0)
[2021-01-22 10:58] LABS: ALANINE AMINOTRANSFERASE 47 U/L (0-55); ALBUMIN 2.7 GM/DL (3.2-4.5); ALKALINE PHOSPHATASE 614 U/L (40-136); BILIRUBIN,TOTAL 0.3 MG/DL (0.1-1.0); BUN/CREATININE RATIO 9; CALCIUM 8.6 MG/DL (8.5-10.1); CARBON DIOXIDE 25 MMOL/L (21-32); CHLORIDE 100 MMOL/L (98-107); GFR ESTIMATED > 60; GLUCOSE 148 MG/DL (70-105); MAGNESIUM 1.6 MG/DL (1.6-2.4); POTASSIUM 3.5 MMOL/L (3.6-5.0); SODIUM 134 MMOL/L (135-145); TOTAL PROTEIN 5.5 GM/DL (6.4-8.2)
[~2021-02-10] VITALS: Ht 170.2 cm; Wt 58.1 kg
[~2021-02-10 08:58] MED LIST changes: +ATROPINE INJ 0.4 MG/ML SDV (CANCER CENTER) IV SCH; +D5W 500 ML IV (CANCER CTR) 500 ML IV SCH; +FOSAPREPITANT (CANCER CENTER) 150 MG in NS (IVPB) CANCER CENTER ONLY 150 ML IV SCH; +GABA-486 PO; +IRINOTECAN HCL 200 MG, IRINOTECAN HCL 40 MG in D5W 250 ML IVPB (CANCER CTR) 250 ML IV SCH; +IRINOTECAN HCL 200 MG, IRINOTECAN HCL 50 MG in D5W 250 ML IVPB (CANCER CTR) 250 ML IV SCH; +LEUCOVORIN CALCIUM 500 MG, LEUCOVORIN CALCIUM 100 MG in D5W 250 ML IVPB (CANCER CTR) 25... IV SCH; +LEUCOVORIN CALCIUM 700 MG in D5W 250 ML IVPB (CANCER CTR) 250 ML IV SCH; +MAGNESIUM SULFATE (CANCER CTR) 2 GM in NS (IVPB) CANCER CENTER 100 ML IV ONE; +MAGNESIUM SULFATE (CANCER CTR) 3 GM in D5W 50 ML IV(CANCER CTR) 50 ML IV ONE; +MAGNESIUM SULFATE IV ONE; +NS IV 1000 ML (CANCER CTR) 1,000 ML ONE; +NS IV 500 ML (CANCER CENTER) 500 ML ONE; +NS IV ONE; +ONDANSETRON 8 MG, DEXAMETHASONE 4 MG/NS 50 ML IVPB (Cancer Ctr) IV ONE; +OXALIPLATIN 100 MG, OXALIPLATIN (GENERIC) 40 MG in D5W 250 ML IVPB (CANCER CTR) 250 ML IV SCH; +OXALIPLATIN 100 MG, OXALIPLATIN (GENERIC) 50 MG in D5W 250 ML IVPB (CANCER CTR) 250 ML IV SCH; +POTASSIUM CHL INJ (CANCER CTR) 10 MEQ in NS (IVPB) CANCER CENTER 50 ML IV ONE; +POTASSIUM CHL IV ONE; +TBO-FILGRASTIM 480 MCG/0.8 ML (GRANIX) CANCER CTR SQ SCH; +[UNRECOGNIZED DRUG - OTHER] IV ONE; +[UNRECOGNIZED DRUG - OTHER] IV ONE; +[UNRECOGNIZED DRUG - OTHER] IV ONE
[2021-02-10 09:27] LABS: BASOPHILS # (AUTO) 0.1 10^3/uL (0.0-0.1); BASOPHILS % (AUTO) 1 % (0-10); EOSINOPHILS # (AUTO) 0.5 10^3/uL (0.0-0.3); EOSINOPHILS % (AUTO) 5 % (0-10); HEMATOCRIT 33 % (40-54); HEMOGLOBIN 10.5 g/dL (13.3-17.7); LYMPHOCYTES # (AUTO) 2.5 10^3/uL (1.0-4.0); LYMPHOCYTES % (AUTO) 25 % (12-44); MEAN CORPUSCULAR HEMOGLOBIN 30 pg (25-34); MEAN CORPUSCULAR HGB CONC 32 g/dL (32-36); MEAN CORPUSCULAR VOLUME 95 fL (80-99); MEAN PLATELET VOLUME 9.1 fL (9.0-12.2); MONOCYTES # (AUTO) 0.7 10^3/uL (0.0-1.0); MONOCYTES % (AUTO) 7 % (0-12); NEUTROPHILS # (AUTO) 6.3 10^3/uL (1.8-7.8); NEUTROPHILS % (AUTO) 62 % (42-75); PLATELET COUNT 483 10^3/uL (130-400); WHITE BLOOD COUNT 10.2 10^3/uL (4.3-11.0)
[2021-02-10 09:51] LABS: ALANINE AMINOTRANSFERASE 16 U/L (0-55); ALBUMIN 2.9 GM/DL (3.2-4.5); ALKALINE PHOSPHATASE 429 U/L (40-136); BILIRUBIN,TOTAL 0.3 MG/DL (0.1-1.0); BUN/CREATININE RATIO 10; CALCIUM 9.1 MG/DL (8.5-10.1); CARBON DIOXIDE 21 MMOL/L (21-32); CHLORIDE 108 MMOL/L (98-107); CREATININE SERUM 0.67 MG/DL (0.60-1.30); GFR ESTIMATED > 60; GLUCOSE 100 MG/DL (70-105); POTASSIUM 3.5 MMOL/L (3.6-5.0); SODIUM 139 MMOL/L (135-145); TOTAL PROTEIN 6.5 GM/DL (6.4-8.2)
== END 2021-03-02 | disposition home or self-care (01) ==
LOC: ONC 08:58
PROVIDERS: ATTEND Internal Medicine Hematology & Oncology
DX: Z51.11 Encounter for antineoplastic chemotherapy (principal); C25.0 Malignant neoplasm of head of pancreas; I10 Essential (primary) hypertension; K21.9 Gastro-esophageal reflux disease without esophagitis; E78.00 Pure hypercholesterolemia, unspecified; E78.5 Hyperlipidemia, unspecified; E86.0 Dehydration; R97.0 Elevated carcinoembryonic antigen [CEA]; Z98.890 Other specified postprocedural states; F17.210 Nicotine dependence, cigarettes, uncomplicated
CPT/HCPCS: 36591; 80048; 80053; 82378; 83735; 85025; 86301; 87430; 96360; 96361; 96365; 96367; 96368; 96372; 96375; 96413; 96415; 96417; 99213

== ENCOUNTER → 2021-04-30 | Outpatient (CLI) | payer OTHER ==
[~2021-04-30] MED LIST changes: -ATROPINE INJ 0.4 MG/ML SDV (CANCER CENTER) IV SCH; +BARIUM SUSPENSION 2.1% (VANILLA SILQ) 450 ML PO ONE; +CATHETER FLUSH 10 ML SYR IV PRN; -CLIN150C18 PO; +CLIN150C20 PO; -D5W 500 ML IV (CANCER CTR) 500 ML IV SCH; -FOSAPREPITANT (CANCER CENTER) 150 MG in NS (IVPB) CANCER CENTER ONLY 150 ML IV SCH; +HOLD METFORMIN - RECEIVED CONTRAST 20 ML VIAL IV SCH; +IOHEXOL 350 MG/ML 100 ML (OMNIPAQUE 350) VIAL IV ONE; -IRINOTECAN HCL 200 MG, IRINOTECAN HCL 40 MG in D5W 250 ML IVPB (CANCER CTR) 250 ML IV SCH; -IRINOTECAN HCL 200 MG, IRINOTECAN HCL 50 MG in D5W 250 ML IVPB (CANCER CTR) 250 ML IV SCH; -LEUCOVORIN CALCIUM 500 MG, LEUCOVORIN CALCIUM 100 MG in D5W 250 ML IVPB (CANCER CTR) 25... IV SCH; -LEUCOVORIN CALCIUM 700 MG in D5W 250 ML IVPB (CANCER CTR) 250 ML IV SCH; -MAGNESIUM SULFATE (CANCER CTR) 2 GM in NS (IVPB) CANCER CENTER 100 ML IV ONE; -MAGNESIUM SULFATE (CANCER CTR) 3 GM in D5W 50 ML IV(CANCER CTR) 50 ML IV ONE; -MAGNESIUM SULFATE IV ONE; +NS 100 ML (IVPB) BAG IV ONE; -NS IV 1000 ML (CANCER CTR) 1,000 ML ONE; -NS IV 500 ML (CANCER CENTER) 500 ML ONE; -NS IV ONE; -ONDANSETRON 8 MG, DEXAMETHASONE 4 MG/NS 50 ML IVPB (Cancer Ctr) IV ONE; -OXALIPLATIN 100 MG, OXALIPLATIN (GENERIC) 40 MG in D5W 250 ML IVPB (CANCER CTR) 250 ML IV SCH; -OXALIPLATIN 100 MG, OXALIPLATIN (GENERIC) 50 MG in D5W 250 ML IVPB (CANCER CTR) 250 ML IV SCH; -POTASSIUM CHL INJ (CANCER CTR) 10 MEQ in NS (IVPB) CANCER CENTER 50 ML IV ONE; -POTASSIUM CHL IV ONE; -TBO-FILGRASTIM 480 MCG/0.8 ML (GRANIX) CANCER CTR SQ SCH; -[UNRECOGNIZED DRUG - OTHER] IV ONE; -[UNRECOGNIZED DRUG - OTHER] IV ONE; -[UNRECOGNIZED DRUG - OTHER] IV ONE
--- NOTE | 2021-04-30 10:33 | Diagnostic Imaging Report ---
PROCEDURE: CT chest with contrast, CT abdomen and pelvis with and without contrast. TECHNIQUE: Pre and post intravenous contrast axial imaging of the abdomen and pelvis and post contrast axial imaging of the chest were performed. Auto Exposure Controls were utilized during the CT exam to meet ALARA standards for radiation dose reduction. INDICATION: Primary malignant neoplasm of the head of the pancreas, status post Whipple procedure. COMPARISON: Correlation is made with prior CT from 01/29/2021. CT CHEST: The right chest wall port is again noted and has the tip at the SVC right atrial junction. No axillary, hilar, or mediastinal lymphadenopathy is identified. No pericardial or pleural fluid is identified. A tiny nodule in the right middle lobe appears stable measuring 5 mm. No new pulmonary nodules are identified. No infiltrates are detected. IMPRESSION: Stable CT chest since 01/29/2021. CT ABDOMEN AND PELVIS: There is pneumobilia present. No discrete liver mass is detected. The gallbladder is surgically absent. Postop changes of a Whipple procedure are noted. No residual or recurrent mass is identified. Pancreatic body and tail are unremarkable. The spleen is unremarkable. Minimal low-density nodularity of the right adrenal gland is stable. Left adrenal gland is unremarkable. Kidneys are unremarkable. Aorta and iliac vessels are heavily calcified but nonaneurysmal. Bowel loops are normal in caliber. There is no ascites. No definite abdominal or pelvic lymphadenopathy is seen. Bladder is decompressed. Prostate contains central calcifications. The bony structures are nonacute. IMPRESSION: Stable postoperative changes from Whipple procedure. No recurrent or residual pancreatic mass or evidence of abdominal or pelvic lymphadenopathy or metastatic disease is detected. Dictated by: Dictated on workstation # [id number]
== END ==
LOC: RAD 09:45
PROVIDERS: ATTEND Internal Medicine Hematology & Oncology
DX: C25.0 Malignant neoplasm of head of pancreas (principal); Z90.49 Acquired absence of other specified parts of digestive tract
CPT/HCPCS: 71260; 74178

== ENCOUNTER 2021-05-08 09:49 | Outpatient (RCR) | payer OTHER ==
[2021-03-17 10:19] LABS: BASOPHILS # (AUTO) 0.1 10^3/uL (0.0-0.1); BASOPHILS % (AUTO) 1 % (0-10); EOSINOPHILS # (AUTO) 0.2 10^3/uL (0.0-0.3); EOSINOPHILS % (AUTO) 2 % (0-10); HEMATOCRIT 41 % (40-54); HEMOGLOBIN 13.4 g/dL (13.3-17.7); LYMPHOCYTES # (AUTO) 3.2 10^3/uL (1.0-4.0); LYMPHOCYTES % (AUTO) 27 % (12-44); MEAN CORPUSCULAR HEMOGLOBIN 32 pg (25-34); MEAN CORPUSCULAR HGB CONC 33 g/dL (32-36); MEAN CORPUSCULAR VOLUME 97 fL (80-99); MEAN PLATELET VOLUME 8.8 fL (9.0-12.2); MONOCYTES # (AUTO) 0.7 10^3/uL (0.0-1.0); MONOCYTES % (AUTO) 6 % (0-12); NEUTROPHILS # (AUTO) 7.4 10^3/uL (1.8-7.8); NEUTROPHILS % (AUTO) 64 % (42-75); PLATELET COUNT 386 10^3/uL (130-400); WHITE BLOOD COUNT 11.6 10^3/uL (4.3-11.0)
[2021-03-17 10:36] LABS: BILIRUBIN,TOTAL 0.2 MG/DL (0.1-1.0); CALCIUM 10.1 MG/DL (8.5-10.1); CREATININE SERUM 0.83 MG/DL (0.60-1.30); POTASSIUM 3.8 MMOL/L (3.6-5.0); TOTAL PROTEIN 7.3 GM/DL (6.4-8.2)
[2021-04-30 08:40] LABS: BASOPHILS # (AUTO) 0.1 10^3/uL (0.0-0.1); BASOPHILS % (AUTO) 1 % (0-10); EOSINOPHILS # (AUTO) 1.1 10^3/uL (0.0-0.3); EOSINOPHILS % (AUTO) 10 % (0-10); HEMATOCRIT 35 % (40-54); HEMOGLOBIN 11.8 g/dL (13.3-17.7); LYMPHOCYTES # (AUTO) 2.1 10^3/uL (1.0-4.0); LYMPHOCYTES % (AUTO) 20 % (12-44); MEAN CORPUSCULAR HEMOGLOBIN 32 pg (25-34); MEAN CORPUSCULAR HGB CONC 34 g/dL (32-36); MEAN CORPUSCULAR VOLUME 93 fL (80-99); MEAN PLATELET VOLUME 8.8 fL (9.0-12.2); MONOCYTES # (AUTO) 1.2 10^3/uL (0.0-1.0); MONOCYTES % (AUTO) 12 % (0-12); NEUTROPHILS # (AUTO) 5.9 10^3/uL (1.8-7.8); NEUTROPHILS % (AUTO) 57 % (42-75); PLATELET COUNT 283 10^3/uL (130-400); WHITE BLOOD COUNT 10.3 10^3/uL (4.3-11.0)
[2021-04-30 09:00] LABS: ALBUMIN 3.7 GM/DL (3.2-4.5); BILIRUBIN,TOTAL 0.2 MG/DL (0.1-1.0); CALCIUM 9.6 MG/DL (8.5-10.1); CREATININE SERUM 0.76 MG/DL (0.60-1.30); TOTAL PROTEIN 6.7 GM/DL (6.4-8.2)
[~2021-05-08 09:49] MED LIST changes: -BARIUM SUSPENSION 2.1% (VANILLA SILQ) 450 ML PO ONE; -CATHETER FLUSH 10 ML SYR IV PRN; -HOLD METFORMIN - RECEIVED CONTRAST 20 ML VIAL IV SCH; -IOHEXOL 350 MG/ML 100 ML (OMNIPAQUE 350) VIAL IV ONE; -NS 100 ML (IVPB) BAG IV ONE
== END 2021-06-15 | disposition home or self-care (01) ==
LOC: ONC 09:49
PROVIDERS: ATTEND Internal Medicine Hematology & Oncology
DX: Z51.11 Encounter for antineoplastic chemotherapy (principal); C25.0 Malignant neoplasm of head of pancreas; I10 Essential (primary) hypertension; K21.9 Gastro-esophageal reflux disease without esophagitis; E78.00 Pure hypercholesterolemia, unspecified; E78.5 Hyperlipidemia, unspecified; E66.01 Morbid (severe) obesity due to excess calories; E86.0 Dehydration; I95.9 Hypotension, unspecified; R97.0 Elevated carcinoembryonic antigen [CEA]; Z92.21 Personal history of antineoplastic chemotherapy; Z98.890 Other specified postprocedural states
CPT/HCPCS: 36591; 80053; 85025; 86301; 99213

== ENCOUNTER 2021-07-23 10:57 | Outpatient (RCR) | payer OTHER ==
[~2021-07-23 10:57] MED LIST changes: -BARIUM SUSPENSION 2.1% (VANILLA SILQ) 450 ML PO ONE; -HOLD METFORMIN - RECEIVED CONTRAST 20 ML VIAL IV SCH; -IOHEXOL 350 MG/ML 100 ML (OMNIPAQUE 350) VIAL IV ONE; -NS 100 ML (IVPB) BAG IV ONE
[2021-07-23 11:19] LABS: BASOPHILS # (AUTO) 0.1 10^3/uL (0.0-0.1); BASOPHILS % (AUTO) 1 % (0-10); EOSINOPHILS # (AUTO) 0.7 10^3/uL (0.0-0.3); EOSINOPHILS % (AUTO) 4 % (0-10); HEMATOCRIT 36 % (40-54); HEMOGLOBIN 12.2 g/dL (13.3-17.7); LYMPHOCYTES # (AUTO) 3.7 10^3/uL (1.0-4.0); LYMPHOCYTES % (AUTO) 23 % (12-44); MEAN CORPUSCULAR HEMOGLOBIN 32 pg (25-34); MEAN CORPUSCULAR HGB CONC 34 g/dL (32-36); MEAN CORPUSCULAR VOLUME 96 fL (80-99); MEAN PLATELET VOLUME 8.8 fL (9.0-12.2); MONOCYTES # (AUTO) 1.3 10^3/uL (0.0-1.0); MONOCYTES % (AUTO) 8 % (0-12); NEUTROPHILS % (AUTO) 63 % (42-75); PLATELET COUNT 328 10^3/uL (130-400); WHITE BLOOD COUNT 15.9 10^3/uL (4.3-11.0)
[2021-07-23 11:41] LABS: BILIRUBIN,TOTAL 0.2 MG/DL (0.1-1.0); CALCIUM 9.6 MG/DL (8.5-10.1); CREATININE SERUM 0.87 MG/DL (0.60-1.30); POTASSIUM 4.2 MMOL/L (3.6-5.0); TOTAL PROTEIN 7.1 GM/DL (6.4-8.2)
== END 2021-08-01 | disposition home or self-care (01) ==
LOC: ONC 10:57
PROVIDERS: ATTEND Internal Medicine Hematology & Oncology
DX: Z45.2 Encounter for adjustment and management of vascular access device (principal); C25.0 Malignant neoplasm of head of pancreas; K43.2 Incisional hernia without obstruction or gangrene; K21.9 Gastro-esophageal reflux disease without esophagitis; E78.00 Pure hypercholesterolemia, unspecified; E78.5 Hyperlipidemia, unspecified; E66.01 Morbid (severe) obesity due to excess calories; R97.0 Elevated carcinoembryonic antigen [CEA]; I10 Essential (primary) hypertension; Z92.21 Personal history of antineoplastic chemotherapy; Z98.890 Other specified postprocedural states; Z68.20 Body mass index [BMI] 20.0-20.9, adult; Z79.891 Long term (current) use of opiate analgesic; Z79.899 Other long term (current) drug therapy; Z79.82 Long term (current) use of aspirin
CPT/HCPCS: 36591; 80053; 85025; 86301; 96523

== ENCOUNTER → 2021-07-23 | Outpatient (CLI) | payer OTHER ==
[~2021-07-23] MED LIST changes: +BARIUM SUSPENSION 2.1% (VANILLA SILQ) 450 ML PO ONE; +HOLD METFORMIN - RECEIVED CONTRAST 20 ML VIAL IV SCH; +IOHEXOL 350 MG/ML 100 ML (OMNIPAQUE 350) VIAL IV ONE; +NS 100 ML (IVPB) BAG IV ONE; -POTA99TA21 PO; +POTA99TA26 PO
--- NOTE | 2021-07-23 13:26 | Diagnostic Imaging Report ---
PROCEDURE: CT chest with contrast, CT abdomen and pelvis with and without contrast. TECHNIQUE: Pre and post intravenous contrast axial imaging of the abdomen and pelvis and post contrast axial imaging of the chest were performed. Auto Exposure Controls were utilized during the CT exam to meet ALARA standards for radiation dose reduction. INDICATION: Pancreatic cancer. Comparison is made with prior CT from 04/30/2021. CT CHEST: A right chest wall port is again noted with tip entering the right atrium. No axillary lymphadenopathy is identified. No mediastinal or hilar lymphadenopathy is detected. No pericardial or pleural fluid is identified. Tiny nodular density along the lateral aspect of the right middle lobe appears stable. Lungs are otherwise clear. No other masses are seen. There are no infiltrates. Bony structures are unremarkable. CT abdomen and pelvis: Pneumobilia is again noted. No discrete liver mass is detected. Gallbladder surgically absent. There is no biliary ductal dilatation. Postsurgical changes from Whipple procedure again noted. The pancreatic tail is unremarkable. No definite residual or recurrent pancreatic mass is identified. Spleen is unremarkable. Adrenal glands appear stable. Kidneys are unremarkable. Aorta and iliac vessels are heavily calcified. There is questionable occlusion of the left common iliac artery. There may be high-grade stenosis of right common iliac artery. Bowel loops are normal caliber. There is no obstruction. There is no ascites. Bladder is decompressed. Prostate contains calcifications. No definite abdominal or pelvic lymphadenopathy is seen. IMPRESSION: Overall stable CT of the chest, abdomen and pelvis when compared with prior exam from 04/30/2021. There are post surgical changes from Whipple surgery. No definite evidence of metastatic disease is identified. Dictated by: Dictated on workstation # [id number]
== END ==
LOC: RAD 11:45
PROVIDERS: ATTEND Internal Medicine Hematology & Oncology
DX: C25.0 Malignant neoplasm of head of pancreas (principal); Z90.49 Acquired absence of other specified parts of digestive tract
CPT/HCPCS: 71260; 74178

== ENCOUNTER 2021-08-07 14:55 | Outpatient (RCR) | payer OTHER | END 2021-09-01 | disposition home or self-care (01) | LOC: ONC 14:55 | PROVIDERS: ATTEND Internal Medicine Hematology & Oncology | DX: C25.0 Malignant neoplasm of head of pancreas (principal); K43.2 Incisional hernia without obstruction or gangrene; K21.9 Gastro-esophageal reflux disease without esophagitis; E78.00 Pure hypercholesterolemia, unspecified; E78.5 Hyperlipidemia, unspecified; E66.01 Morbid (severe) obesity due to excess calories; I10 Essential (primary) hypertension; R97.0 Elevated carcinoembryonic antigen [CEA]; Z92.21 Personal history of antineoplastic chemotherapy; Z98.890 Other specified postprocedural states; Z68.20 Body mass index [BMI] 20.0-20.9, adult; Z79.891 Long term (current) use of opiate analgesic; Z79.899 Other long term (current) drug therapy; Z79.82 Long term (current) use of aspirin | CPT/HCPCS: 99213 ==

== ENCOUNTER 2022-05-26 10:52 | Outpatient (RCR) | payer OTHER ==
[~2022-05-26 10:52] MED LIST changes: +BUPR-105 PO; -BUPR150T14 PO
== END 2022-06-01 | disposition home or self-care (01) ==
PROVIDERS: ATTEND Hospitalist
DX: G46.4 Cerebellar stroke syndrome (principal)

== ENCOUNTER 2022-06-30 11:02 | Outpatient (RCR) | payer OTHER ==
[~2022-06-30 11:02] MED LIST changes: +CLOP-31 PO; -CLOP75TA69 PO
== END 2022-07-01 | disposition home or self-care (01) ==
PROVIDERS: ATTEND Hospitalist
DX: G46.4 Cerebellar stroke syndrome (principal)

== ENCOUNTER 2022-07-21 11:00 | Outpatient (RCR) | payer OTHER | END 2022-08-01 | disposition home or self-care (01) | PROVIDERS: ATTEND Hospitalist | DX: G46.4 Cerebellar stroke syndrome (principal) ==

== ENCOUNTER → 2022-09-01 | Outpatient (RCR) | payer OTHER | END | disposition home or self-care (01) | PROVIDERS: ATTEND Hospitalist | DX: G46.4 Cerebellar stroke syndrome (principal) ==

== ENCOUNTER 2022-09-08 11:08 | Outpatient (RCR) | payer OTHER | END 2022-09-08 17:00 | disposition home or self-care (01) | PROVIDERS: ATTEND Hospitalist | DX: G46.4 Cerebellar stroke syndrome (principal) ==